=== PATIENT | female | born 1935 | race Caucasian/White ===

== ENCOUNTER 2019-04-26 15:07 | Outpatient (CLI) | payer MEDICARE, OTHER, SELFPAY ==
--- NOTE | ~2019-04-26 | XR_ITS ---
XR lumbar spine 2-3V 04/26/2019 15:40 Indication: Back pain. Procedure: 3 views lumbar spine Comparison: CT abdomen dated 03/19/2016 Findings: There is a T12 burst fracture which is new compared with prior CT. There is an also a T9 fuller perior endplate compression fracture, age indeterminate. There is disc narrowing at all lumbar levels . There is advanced multilevel facet hypertrophy. There are cholecystectomy clips. Sacral foramen are symmetric. Impression: 1: Age-indeterminate superior endplate compression fracture of T9 and burst fracture of T12. The burs t fracture was not seen on CT abdomen dated 03/19/2016. 2: Severe lumbar spondylosis. Reviewed, dictated and finalized at location A. ARY SERIALS ASSISTANT Impression: 1: Age-indeterminate superior endplate compression fracture of T9 and burst fra cture of T12. The burst fracture was not seen on CT abdomen dated 03/19/2016. 2: Severe lumbar spondylosis.
--- NOTE | ~2019-04-26 | XR_ITS ---
EXAMINATION: XR thoracic spine 3V EXAM DATE: 04/26/2019 15:40 INDICATION: Dorsalgia. TECHNIQUE: Frontal and lateral projections of the thoracic spine as well as lateral swimmers projecti on of the upper thoracic spine for interpretation. There is no prior thoracic x-ray study for compar juventino. FINDINGS: There is moderate to severe compression fracture of T8 vertebral body, moderate burst frac ture of T12 vertebral body. Mild to moderate compression fractures of T9 and T11. There is mild thora cic disc disease. Paraspinal soft tissue is unremarkable. There is aortic arterial sclerosis. There a re cholecystectomy clips. Multiple old right rib fractures posteriorly. Correlation was made with CT pulmonary scan 06/09/2014, which demonstrates moderate compression fractur e of T9, might be unchanged compared to that exam. The other thoracic compression fractures have deve loped compared to that time, certainly could have an acute component to one of them. IMPRESSION: T12 burst fracture and other thoracic compression fractures, probably chronic but could h ave acute component to any them. Reviewed, dictated and finalized at location A. MOTIVE TIRE TECHNICIAN IMPRESSION: T12 burst fracture and other thoracic compression fractures, probab ly chronic but could have acute component to any them.
== END 2019-04-26 15:08 | disposition home or self-care (01) ==
LOC: ANHIMG 15:10
PROVIDERS: PCP Internal Medicine; Visit Provider Internal Medicine
DX: M47.896 Other spondylosis, lumbar region (principal); S22.081A Stable burst fracture of T11-T12 vertebra, initial encounter for closed fracture; X58.XXXA Exposure to other specified factors, initial encounter
CPT/HCPCS: 72072; 72100

== ENCOUNTER 2019-05-19 12:17 | Outpatient (CLI) | payer MEDICARE, OTHER, SELFPAY ==
--- NOTE | ~2019-05-19 | MR_ITS ---
EXAMINATION: MR lumbar spine wo con EXAM DATE: 05/19/2019 14:19 INDICATION: Low back pain. Compression, burst fractures. TECHNIQUE: Multi-sequential, multiplanar MR images of the lumbar spine were obtained without contrast . Sagittal T1, T2, T2 fat saturation images. Axial T2 weighted images. Correlation is made to lumba r x-ray 04/26/2019. FINDINGS: T12 burst fracture with severe loss of the vertebral body height, mild edema, probably suba cute. Only mild retropulsion. There is mild compression fracture superior endplate of L3 with more ed lexis, probably acute to subacute. Mild to moderate chronic L2 compression fracture. The conus medullar is terminates at the L1/2 level and has normal signal intensity and morphology. There is 3 mm retroli sthesis L4 on L5 and L5 on S1. Paraspinal soft tissue is unremarkable. Level by level evaluation: T11-12: There is a mild diffuse disc bulge. Facet arthropathy: Mild to moderate. Neural foraminal stenosis: Mild right. Central canal stenosis: No stenosis. T12-L1: There is a moderate diffuse disc bulge. Facet arthropathy: Moderate. Neural foraminal stenosis: Moderate to severe bilateral. Central canal stenosis: Mild to moderate. L1-L2: There is a moderate diffuse disc bulge. Facet arthropathy: Moderate. Neural foraminal stenosis: No stenosis. Central canal stenosis: Mild. L2-L3: There is a moderate diffuse disc bulge. Facet arthropathy: Moderate . Ligamentum flavum enlargement. Neural foraminal stenosis: Mild to moderate bilateral. Central canal stenosis: Moderate, nerve root crowding. L3-L4: There is a moderate to large diffuse disc bulge asymmetric to the left Facet arthropathy: Moderate to severe . Ligamentum flavum enlargement. Neural foraminal stenosis: Moderate left, mild to moderate right. Central canal stenosis: Moderate to severe. L4-L5: There is a moderate to large diffuse disc bulge. Facet arthropathy: Moderate to severe. Neural foraminal stenosis: Moderate to severe right, moderate left. Central canal stenosis: Moderate to severe. L5-S1: There is a moderate diffuse disc bulge. Facet arthropathy: Moderate to severe. Neural foraminal stenosis: Moderate right, mild to moderate left. Central canal stenosis: Moderate. IMPRESSION: 1. T12 burst, L3 compression fractures with edema indicating acute to subacute components. 2. Some advanced lumbar spondylosis, with severe central canal stenosis L4-5. Reviewed, dictated and finalized at location A.
--- NOTE | ~2019-05-19 | MR_ITS ---
EXAMINATION: MR thoracic spine wo con DATE: 05/19/2019 14:20 INDICATION: Fracture of thoracic vertebrae with chronic low back pain. TECHNIQUE: Magnetic resonance imaging (MRI) of the thoracic spine was performed without intravenous c ontrast. Sagittal localizer T1-weighted FSE of the cervicothoracic spine was obtained. Thoracic spine sequences included sagittal T2-weighted FSE, sagittal T1-weighted SE, Sagittal T2-weighted FS FSE, a nd axial T2-weighted FSE. COMPARISON: Thoracic spine radiographs dated 04/26/[address] dated 06/09/2014 FINDINGS: Chronic 2 mm anterolisthesis C7 on T1 and T2 and T3 unchanged since 2014. A few burst fractures in th e mid to lower thoracic spine all of which appear present on radiograph dated 04/26/2019 and without a ppreciable change in vertebral body height loss. This includes T8 where there is 80% central vertebra l body height loss and 4 mm retropulsion which appears chronic with no significant edema. T9 burst fr acture with 40% central vertebral body height loss, 2 mm retropulsion and mild marrow edema suggestin g subacute chronicity. T12 burst fracture with 80% central vertebral body height loss and 2-3 mm retr opulsion, also with marrow edema suggesting subacute. Partially visualized mild L3 compression fractu re also with marrow edema suggesting subacute fracture. Chronic L2 inferior endplate compression frac ture with 20% central vertebral body height loss. Marrow signal is otherwise unremarkable with no pat hologic marrow replacing process. Moderate disc height loss at C5-C6, C6-C7, T2-T3, T7-T8 and T8-T9. Mild disc height loss at many of the remaining thoracic levels. Normal spinal cord signal and morphol ogy. 2.1 cm T2 hyperintense left renal cyst. Paraspinal soft tissues are otherwise unremarkable. C7-T1: Disc is mildly bulging. There is severe bilateral facet osteoarthritis. Mild bilateral neural foraminal stenosis. Mild central canal stenosis. T1-T2: Disc is mildly bulging. Severe bilateral facet osteoarthritis. Mild left neural foraminal sten osis. There is mild central canal stenosis. T2-T3: Small left paracentral disc extrusion with disc material extending a few millimeters cephalad to the inferior endplate of T2. Severe bilateral facet osteoarthritis. Mild bilateral neural foramina l stenosis. There is mild central canal stenosis. T3-T4: Mild left paracentral disc protrusion. Moderate bilateral facet osteoarthritis. No neural fora robyn stenosis. There is minimal central canal stenosis. T4-T5: The disc does not extend beyond the endplate margin. Moderate lateral right facet osteoarthrit is. Mild right neural foraminal stenosis. There is no central canal stenosis. T5-T6: The disc does not extend beyond the endplate margin. Moderate bilateral facet osteoarthritis a nd mild bilateral neural foraminal stenosis. There is no central canal stenosis. T6-T7: The disc does not extend beyond the endplate margin. Mild bilateral facet osteoarthritis. Mild bilateral neural foraminal stenosis. There is no central canal stenosis. T7-T8: The disc does not extend beyond the endplate margin. Mild bilateral facet osteoarthritis. Mild bilateral neural foraminal stenosis. There is no central canal stenosis. T8-T9: 4 mm retropulsion of the inferior endplate of T8 which flattens the ventral surface of the cor d. Mild bilateral facet osteoarthritis. Moderate bilateral neural foraminal stenosis. There is mild t o moderate central canal stenosis. T9-T10: 2 mm retropulsion of the inferior endplate of T9. Mild bilateral facet osteoarthritis. Modera te right and severe left neural foraminal stenosis. There is mild central canal stenosis. T10-T11: Disc is mildly bulging. Moderate bilateral facet osteoarthritis. There is moderate left and mild to moderate right neural foraminal stenosis. There is mild central canal stenosis. T11-T12: Mild disc bulge. M
== END 2019-05-19 12:18 | disposition home or self-care (01) ==
PROVIDERS: PCP Internal Medicine; Visit Provider Internal Medicine
DX: S22.009A Unspecified fracture of unspecified thoracic vertebra, initial encounter for closed fracture (principal); X58.XXXA Exposure to other specified factors, initial encounter; M47.892 Other spondylosis, cervical region; M47.894 Other spondylosis, thoracic region; M47.896 Other spondylosis, lumbar region
CPT/HCPCS: 72146; 72148

== ENCOUNTER 2019-06-20 10:57 | Outpatient (CLI) | payer MEDICARE, OTHER, SELFPAY ==
--- NOTE | ~2019-06-20 | XR_ITS ---
EXAMINATION: XR lumbar spine 2-3V DATE: 06/20/2019 11:42 INDICATION: Closed wedge compression fracture of L3 TECHNIQUE: Anteroposterior and lateral views of the lumbar spine, and cone-down lateral view of the l umbosacral junction were obtained. COMPARISON: MRI, 05/19/2019 FINDINGS: A T12 burst fracture is unchanged. There are stable compression fractures of T9 and L3. No acute osseous findings are evident. Vertebral body alignment is normal. There is moderate loss of int ervertebral disc space height at L3-4 and L5-S1 and mild loss of intervertebral disc space height thr oughout the remainder of the lumbar spine. There is moderate to severe facet osteoarthritis in the mi d and lower lumbar spine. The bowel gas pattern is normal. Surgical clips in the right upper quadrant are likely from prior cholecystectomy. IMPRESSION: 1. T12 burst fracture and compression fractures of T9 and L3 without significant change. Reviewed, dictated and finalized at location A. IMPRESSION: 1. T12 burst fracture and compression fractures of T9 and L3 without significan t change.
== END 2019-06-20 10:58 | disposition home or self-care (01) ==
PROVIDERS: PCP Internal Medicine; Visit Provider Neurological Surgery
DX: S32.030D Wedge compression fracture of third lumbar vertebra, subsequent encounter for fracture with routine healing (principal); S22.080D Wedge compression fracture of T11-T12 vertebra, subsequent encounter for fracture with routine healing; X58.XXXD Exposure to other specified factors, subsequent encounter
CPT/HCPCS: 72100

== ENCOUNTER 2019-08-14 13:01 | Outpatient (CLI) | payer MEDICARE, OTHER, SELFPAY ==
[2019-08-14 13:34] LABS: Alanine Aminotransferase 16 U/L (4-35); Albumin Level 4.4 g/dL (3.5-5.1); Alkaline Phosphatase 103 U/L (38-126); Aspartate Amino Transferase 25 U/L (14-36); Bilirubin,Total 0.6 mg/dL (0.2-1.3); Blood Urea Nitrogen 19 mg/dL (7-17); Calcium 9.8 mg/dL (8.4-10.2); Carbon Dioxide 30 mmol/L (22-30); Chloride 101 mmol/L (98-107); Estimated Glomerular Filt Rate 53; Glucose 100 mg/dL (65-105); Potassium 4.1 mmol/L (3.4-5.0); Sodium 137 mmol/L (137-145)
[2019-08-14 14:01] LABS: Free T4 Free Thyroxine 1.03 ng/mL (0.78-2.19)
== END 2019-08-14 13:02 | disposition home or self-care (01) ==
PROVIDERS: PCP Internal Medicine; Visit Provider Nurse Practitioner
DX: E03.9 Hypothyroidism, unspecified (principal); I10 Essential (primary) hypertension
CPT/HCPCS: 36415; 80053; 84439; 84443

== ENCOUNTER 2019-11-07 09:33 | Outpatient (CLI) | payer MEDICARE, OTHER, SELFPAY ==
[2019-11-07 10:48] LABS: Basophils Absolute Auto 0.1 K/mm3 (0.0-0.1); Basophils Percent Auto 0.7 % (0.2-1.2); Eosinophils Absolute Auto 0.2 K/mm3 (0-0.3); Eosinophils Percent Auto 1.7 % (0-4.4); Hematocrit 36.7 % (37.0-47.0); Hemoglobin 12.4 g/dL (12.0-15.0); Immature Granulocyte Absolute 0.03 K/mm3 (0.00-0.031); Immature Granulocyte Percent A 0.3 % (0-0.5); Lymphocytes Absolute Auto 1.11 K/mm3 (0.9-3.2); Lymphocytes Percent Auto 11.9 % (18.3-44.2); Mean Corpuscular HGB Conc 33.8 g/dl (32-36); Mean Corpuscular Hemoglobin 33.4 pg (26-34); Mean Corpuscular Volume 98.9 fl (80-100); Mean Platelet Volume 9.7 fl (7.4-10.4); Monocytes Absolute Auto 0.6 K/mm3 (0.1-0.6); Monocytes Percent Auto 6.8 % (2.6-8.5); Neutrophils Absolute Auto 7.3 K/mm3 (1.3-6.7); Neutrophils Percent Auto 78.6 % (45.5-73.1); Platelet Count Result 304 k/mm3 (150-375); Red Blood Count 3.71 M/mm3 (4.2-5.4); Red Cell Distribution Width 13.1 % (11.5-14.5); White Blood Count 9.4 K/mm3 (4.5-10.0)
[2019-11-07 10:59] LABS: Add Urine Microscopic? YES; Appearance Urine Clear (Clear); Bacteria Urine Trace /hpf; Bilirubin Urine Negative (Negative); Blood Urine Negative (Negative); Color Urine Yellow (Yellow); Glucose Urine UA Negative (Negative); Ketones Urine Negative (Negative); Leukocyte Esterase Ur 1+ LEU/UL (Negative); Mucus Urine Rare /lpf; Nitrate Urine Positive (Negative); Protein Urine Negative (Negative); Specific Grav Ur 1.012 (1.001-1.035); Squamous Epithelial Cell Urine Rare /hpf (Few); Urobilinogen Urine Negative mg/dL (<2.0); WBC Urine 21-30 /hpf
== END 2019-11-07 09:34 | disposition home or self-care (01) ==
PROVIDERS: PCP Internal Medicine; Visit Provider Internal Medicine
DX: R35.1 Nocturia (principal); R53.83 Other fatigue
CPT/HCPCS: 36415; 81001; 85025; 87077; 87086; 87088; 87186

== ENCOUNTER 2020-05-20 10:24 | Outpatient (CLI) | payer MEDICARE, OTHER, SELFPAY ==
[2020-05-20 11:29] LABS: Alanine Aminotransferase 18 U/L (4-35); Albumin Level 4.3 g/dL (3.5-5.1); Alkaline Phosphatase 73 U/L (38-126); Anion Gap 7 mmol/L (8-16); Aspartate Amino Transferase 26 U/L (14-36); Bilirubin,Total 0.5 mg/dL (0.2-1.3); Blood Urea Nitrogen 13 mg/dL (7-17); Calcium 9.9 mg/dL (8.4-10.2); Carbon Dioxide 28 mmol/L (22-30); Chloride 100 mmol/L (98-107); Cholesterol 162 mg/dL (0-200); Estimated Glomerular Filt Rate 60; Glucose 103 mg/dL (65-105); HDL Direct 78 mg/dL; Potassium 4.1 mmol/L (3.4-5.0); Sodium 135 mmol/L (137-145); Triglycerides 102 mg/dL (<150)
[2020-05-20 11:42] LABS: LDL Cholesterol Direct 53 mg/dL
[2020-05-20 12:10] LABS: Vitamin D 25 Hydroxy 66.5 ng/mL
== END 2020-05-20 10:25 | disposition home or self-care (01) ==
PROVIDERS: PCP Internal Medicine; Visit Provider Nurse Practitioner
DX: E03.9 Hypothyroidism, unspecified (principal); Z78.0 Asymptomatic menopausal state; F32.9 Major depressive disorder, single episode, unspecified
CPT/HCPCS: 36415; 80053; 80061; 82306; 84443

== ENCOUNTER 2020-05-28 11:14 | Outpatient (CLI) | payer MEDICARE, OTHER, SELFPAY ==
--- NOTE | ~2020-05-28 | XR_ITS ---
XR thoracic spine 3V DATE: 05/28/2020 11:41 INDICATION: Back pain TECHNIQUE: AP, lateral, swimmer views COMPARISON: 05/19/2019 MRI brain thoracic spine 04/26/2019 thoracic spine FINDINGS: Diffuse osteopenia. Severe chronic burst fracture deformity at T8, stable since April 26, 2019. Increased severity of T9 burst fracture deformity since April 26, 2019. Increased fracture deformity at T11 since April 26, 2019. Chronic severe burst fracture deformity at T12, stable since April 26, 2019 Apparently stable fracture deformity of L2. Degenerative changes of the cervical and thoracic spine. The thoracic pedicles appear intact. Status post cholecystectomy IMPRESSION: Fracture deformities of T8, T9, T11, T12 and L2 are again noted, increased in severity at T9 and T11 since April 26, 2019 Reviewed, dictated and finalized at location B. IMPRESSION: Fracture deformities of T8, T9, T11, T12 and L2 are again noted, in creased in severity at T9 and T11 since April 26, 2019
--- NOTE | ~2020-05-28 | XR_ITS ---
XR lumbar spine 2-3V DATE: 05/28/2020 11:41 INDICATION: Back pain TECHNIQUE: AP, lateral, coned lateral lumbosacral views COMPARISON: 06/20/2019 lumbar spine FINDINGS: There is diffuse osteopenia. Severe T12 fracture deformity and loss of height, stable since 06/20/2019. No interval fracture of the lumbar spine is noted compared to 06/20/2019. There is degenerative disc d isease throughout the lumbar and lumbosacral spine. The lumbar pedicles are intact. The sacroiliac joints are normal. Status post cholecystectomy IMPRESSION: Diffuse osteopenia Multilevel degenerative disc disease Reviewed, dictated and finalized at location B.
== END 2020-05-28 11:15 | disposition home or self-care (01) ==
PROVIDERS: PCP Internal Medicine; Visit Provider Internal Medicine
DX: M51.36 Other intervertebral disc degeneration, lumbar region (principal); Z90.49 Acquired absence of other specified parts of digestive tract
CPT/HCPCS: 72072; 72100

== ENCOUNTER 2020-12-09 10:55 | Outpatient (CLI) | payer MEDICARE, OTHER, SELFPAY | END 2020-12-09 10:56 | disposition home or self-care (01) | LOC: ANHLAB 10:57 | PROVIDERS: PCP Internal Medicine; Visit Provider Internal Medicine | DX: E03.9 Hypothyroidism, unspecified (principal) | CPT/HCPCS: 36415; 84443 ==

== ENCOUNTER 2021-06-16 10:39 | Outpatient (CLI) | payer MEDICARE, OTHER, SELFPAY ==
[2021-06-16 11:21] LABS: Alanine Aminotransferase 18 U/L (4-35); Albumin Level 4.3 g/dL (3.5-5.1); Alkaline Phosphatase 70 U/L (38-126); Anion Gap 7 mmol/L (8-16); Aspartate Amino Transferase 29 U/L (14-36); Bilirubin,Total 0.6 mg/dL (0.2-1.3); Blood Urea Nitrogen 21 mg/dL (7-17); Calcium 9.3 mg/dL (8.4-10.2); Carbon Dioxide 28 mmol/L (22-30); Chloride 102 mmol/L (98-107); Cholesterol 159 mg/dL (0-200); Estimated Glomerular Filt Rate 53; Glucose 110 mg/dL (65-110); HDL Direct 58 mg/dL; Potassium 4.7 mmol/L (3.4-5.0); Sodium 137 mmol/L (137-145); Triglycerides 116 mg/dL (<150)
[2021-06-16 11:31] LABS: LDL Cholesterol Direct 49 mg/dL
[2021-06-16 13:03] LABS: Vitamin D 25 Hydroxy 87.7 ng/mL
== END 2021-06-16 10:40 | disposition home or self-care (01) ==
PROVIDERS: PCP Internal Medicine; Visit Provider Nurse Practitioner
DX: E03.9 Hypothyroidism, unspecified (principal); I10 Essential (primary) hypertension; Z13.220 Encounter for screening for lipoid disorders; Z13.21 Encounter for screening for nutritional disorder
CPT/HCPCS: 36415; 80053; 80061; 82306; 84443

== ENCOUNTER 2021-06-30 11:25 | Outpatient (CLI) | payer MEDICARE, OTHER, SELFPAY ==
[2021-06-30 12:15] LABS: Basophils Absolute Auto 0.1 K/mm3 (0.0-0.1); Basophils Percent Auto 0.9 % (0.2-1.2); Eosinophils Absolute Auto 0.2 K/mm3 (0-0.3); Eosinophils Percent Auto 2.3 % (0-4.4); Hemoglobin 12.5 g/dL (12.0-15.0); Immature Granulocyte Absolute 0.03 K/mm3 (0.00-0.031); Immature Granulocyte Percent A 0.3 % (0-0.5); Lymphocytes Absolute Auto 1.44 K/mm3 (0.9-3.2); Lymphocytes Percent Auto 15.7 % (18.3-44.2); Mean Corpuscular HGB Conc 32.9 g/dl (32-36); Mean Corpuscular Hemoglobin 33.2 pg (26-34); Mean Corpuscular Volume 101.1 fl (80-100); Mean Platelet Volume 10.1 fl (7.4-10.4); Monocytes Absolute Auto 0.9 K/mm3 (0.1-0.6); Monocytes Percent Auto 9.4 % (2.6-8.5); Neutrophils Absolute Auto 6.5 K/mm3 (1.3-6.7); Neutrophils Percent Auto 71.4 % (45.5-73.1); Platelet Count Result 285 k/mm3 (150-375); Red Blood Count 3.76 M/mm3 (4.2-5.4); Red Cell Distribution Width 13.4 % (11.5-14.5); White Blood Count 9.2 K/mm3 (4.5-10.0)
== END 2021-06-30 11:26 | disposition home or self-care (01) ==
LOC: ANHLAB 11:28
PROVIDERS: PCP Internal Medicine; Visit Provider Internal Medicine
DX: R53.83 Other fatigue (principal)
CPT/HCPCS: 36415; 85025

== ENCOUNTER 2021-07-19 06:48 | Emergency (ER) | payer MEDICARE, OTHER, SELFPAY ==
--- NOTE | ~2021-07-19 | XR_ITS ---
XR chest 2V DATE: 07/19/2021 07:41 INDICATION: Cough for 3 weeks TECHNIQUE: PA and lateral views COMPARISON: 03/04/2015 2 view chest FINDINGS: Heart size is within normal limits. Is aortic calcification and unfolding. No hilar or medi astinal enlargement. No pulmonary infiltrate or consolidation, pleural effusion or pulmonary vascular congestion or pneumo thorax. Diffuse osteopenia. There are old healed right rib fractures. There is osteoarthritic change at the g lenohumeral joints and bilateral rotator cuff atrophy. There are multiple compression fracture deformities of the thoracic spine, increased in number since 03/04/2015. Status post cholecystectomy. 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
[2021-07-19 07:00] VITALS: BP 174/70; PULSE 85; RESP 18; TEMP 36.2; O2SAT 98
--- NOTE | 2021-07-19 07:37 | ED.GENADULT ---
HPI - General Adult General Chief complaint: Unspecified Stated complaint: Cough, I feel like I have the flu Time Seen by Provider: 07/19/21 07:18 History of Present Illness HPI narrative: Patient is an 86-year-old female who presents ER with fatigue and weakness. Patient reports over the last 3 weeks she has developed sinus congestion with sore throat and cough. With the cough she is having pain in her back. She took some ibuprofen today. She takes Claritin daily. No fevers or chills or sweats. She is experiencing some body aches and is wondering if she may have caught the flu. No known sick contacts. Related Data Allergies Allergy/AdvReac Type Severity Reaction Status Date / Time diazepam Allergy Unknown Shakiness Verified 07/19/21 07:30 neomycin Allergy Unknown Rash Verified 07/19/21 07:30 Review of Systems Review of Systems: All systems reviewed & are unremarkable except as noted in HPI and below Constitutional: Constitutional: Denies chills, Denies fever(s) and Denies weakness ENT: Reports nasal congestion, Reports post nasal drip and Reports sore throat Cardiovascular: Cardiovascular: Denies chest pain, Denies radiating jaw, neck or arm pain and Denies palpitations Respiratory: Respiratory: Denies chest congestion, Reports cough and Denies dyspnea Genitourinary: Genitourinary: Reports vaginal pruritus Comments: Vaginal yeast Musculoskeletal: Musculoskeletal: Reports back pain, Reports myalgias and Denies arthralgias PMFSH Past Medical History Medical History Anxiety Body mass index (bmi) 34.0-34.9, adult Constipation, unspecified Hypothyroidism, unspecified Major depressive disorder, recurrent, unspecified Overweight Screening for breast cancer Screening for osteoporosis Family History Family History Father Acute myocardial infarction Social History Social History Smoking status: Never smoker Second hand tobacco smoke exposure: No Alcohol intake: never Substance use: never Substance use type: does not use Exam Narrative: GENERAL: Well-appearing, well-nourished, and in no acute distress. HEAD: Normocephalic, atraumatic. ENT: Mucous membranes moist. NECK: Supple. CHEST: Clear to auscultation. No respiratory distress. HEART: Regular rate and rhythm. Normal peripheral pulses. ABDOMEN: Soft, nontender, nondistended. EXTREMITIES: Normal range of motion. No edema. SKIN: Warm, dry, no rash. NEURO: Alert and oriented x3. PSYCH: Normal mood and affect. Course Course Emergency Course: Patient informed of results. Resting comfortably. Discharged with Flonase as well as one-time dose of Diflucan here. Vital Signs Vital signs: Vital Signs Temperature 97.2 F L 07/19/21 07:00 Pulse Rate 85 07/19/21 07:00 Respiratory Rate 18 07/19/21 07:00 Blood Pressure 174/70 H 07/19/21 07:00 Pulse Oximetry 98 07/19/21 07:00 Temperature 97.2 F L 07/19/21 07:00 Pulse Rate 85 07/19/21 07:00 Respiratory Rate 18 07/19/21 07:00 Blood Pressure 174/70 H 07/19/21 07:00 Pulse Oximetry 98 07/19/21 07:00 Medical Decision Making Vital Signs Vital Signs: Vital Signs Temperature 97.2 F L 07/19/21 07:00 Pulse Rate 85 07/19/21 07:00 Respiratory Rate 18 07/19/21 07:00 Blood Pressure 174/70 H 07/19/21 07:00 Pulse Oximetry 98 07/19/21 07:00 Temperature 97.2 F L 07/19/21 07:00 Pulse Rate 85 07/19/21 07:00 Respiratory Rate 18 07/19/21 07:00 Blood Pressure 174/70 H 07/19/21 07:00 Pulse Oximetry 98 07/19/21 07:00 Lab Data Labs: Lab Results 07/19/21 Range/Units 07:32 Influenza A (RT-PCR) Negative (Negative) Influenza B (RT-PCR) Negative (Negative) SARS-CoV-2 RNA (RT-PCR) Negative Discharge Plan Discharge Clinical Impression: Sinus congestion Kassidye
[2021-07-19 08:13] LABS: Influenza A QL RT-PCR Negative (Negative); Influenza B QL RT-PCR Negative (Negative); SARS-CoV-2 RNA PCR Negative
== END 2021-07-19 09:28 | disposition home or self-care (01) ==
PROVIDERS: Emergency Provider Emergency Medicine; PCP Internal Medicine
DX: J34.89 Other specified disorders of nose and nasal sinuses (principal); Z20.822 Contact with and (suspected) exposure to COVID-19; E03.9 Hypothyroidism, unspecified; E66.3 Overweight; Z68.34 Body mass index [BMI] 34.0-34.9, adult; F41.9 Anxiety disorder, unspecified; F32.9 Major depressive disorder, single episode, unspecified
CPT/HCPCS: 71046; 87502; 99283; C9803; U0003; U0005

== ENCOUNTER 2021-07-21 11:51 | Inpatient (IN) | payer MEDICARE, OTHER, SELFPAY ==
[2021-07-21] VITALS (22 sets, daily range): BP systolic 110–158; BP diastolic 52–97; PULSE 80–104; RESP 14–29; TEMP 36.2–37.1; O2SAT 90–100; BMI 33.5
--- NOTE | ~2021-07-21 | CT_ITS ---
EXAMINATION: CT lumbar spine wo con DATE: 07/21/2021 13:08 INDICATION: Fall. TECHNIQUE: Computed tomography (CT) of the lumbar spine was performed without intravenous contrast. A utomated exposure control and iterative reconstruction technique were employed. The dose-length produ ct was 927.30 mGy-cm. COMPARISON: Lumbar spine radiographs 05/28/2020 FINDINGS: There is 3 mm retrolisthesis of L5 on S1. There is a chronic burst fracture of T12 with gre ater than 4/5 loss of height and retropulsion of bone 3 mm into central spinal canal. There are chron ic burst fractures of L2 and L3 with 2/5 and 1/5 loss of height centrally, respectively, and retropul brando of bone 3 mm into central spinal canal. There is mildly decreased disc height at L1-L2 and L2-L3 , moderately decreased disc height at L3-L4, severely decreased disc height at L5-S1. The following d isc levels are specifically discussed: L1-L2: The disc is bulging. There is severe bilateral facet joint osteoarthritis. There is mild bilat eral neural foraminal stenosis. There is mild central canal stenosis. L2-L3: The disc is bulging. There is severe bilateral facet joint osteoarthritis. There is mild bilat eral neural foraminal stenosis. There is mild central canal stenosis. L3-L4: The disc is bulging. There is severe right and moderate left facet joint osteoarthritis. There is moderate bilateral neural foraminal stenosis. There is mild central canal stenosis. L4-L5: The disc is bulging. There is severe bilateral facet joint osteoarthritis. There is moderate b ilateral neural foraminal stenosis. There is moderate central canal stenosis. L5-S1: The disc is bulging. There is severe bilateral facet joint osteoarthritis. There is moderate b ilateral neural foraminal stenosis. There is mild central canal stenosis. IMPRESSION: 1. No acute fracture. 2. Severe lumbar spondylosis. Reviewed, dictated and finalized at location B.
--- NOTE | ~2021-07-21 | XR_ITS ---
EXAMINATION: XR chest 2V DATE: 07/21/2021 13:11 INDICATION: Weakness. TECHNIQUE: Frontal and lateral views of the chest were obtained. COMPARISON: Chest 2 views 07/19/2021, thoracic spine radiographs 05/28/2020 FINDINGS: There is a diffuse interstitial pattern, consistent with mild pulmonary edema. No pleural e ffusion or pneumothorax. The heart size is normal. There are multiple old healed right rib fractures. There are multiple chronic vertebral body fractures. IMPRESSION: 1. Mild pulmonary edema. Reviewed, dictated and finalized at location B. IMPRESSION: 1. Mild pulmonary edema.
--- NOTE | ~2021-07-21 | XR_ITS ---
EXAMINATION: XR chest 2V DATE: 07/24/2021 10:46 INDICATION: Tiny left pneumothorax TECHNIQUE: frontal and lateral views of the chest were obtained. COMPARISON: Chest radiograph dated 07/23/2021 FINDINGS: A few old healed right-sided rib fractures and a few acute-appearing anterior left rib fractures. Sli ght increase in size of a still small left pleural effusion with associated left basilar atelectasis. Tiny right pleural effusion. No pulmonary edema or pneumothorax. Multiple chronic thoracic compressi on fractures unchanged since radiographs obtained prior to the fall on 07/19/2021. Cholecystectomy cli ps in right upper quadrant. IMPRESSION: 1. Several recent right rib fractures with slight interval increase in a still small left pleural eff usion with associated basilar atelectasis. No pneumothorax. 2. Very small right pleural effusion. Reviewed, dictated and finalized at location A. IMPRESSION: 1. Several recent right rib fractures with slight interval increase in a still small left pleural effusion with associated basilar atelectasis. No pneumothora x. 2. Very small right pleural effusion.
--- NOTE | ~2021-07-21 | XR_ITS ---
XR chest 2V 07/23/2021 07:51 Indication: Pneumothorax seen on rib films. Procedure: 2 view chest Comparison: Left rib series dated 07/22/2021 Findings: Rib fractures seen on prior rib series not appreciated on the current examination. No defin itive pneumothorax identified. There is a left pleural effusion/hemothorax. There is advanced degener ative changes of the shoulders. There is right lateral costophrenic angle blunting. Impression: 1: Bilateral pleural effusions/hemothorax, left greater than right. 2: No pneumothorax identified. Reviewed, dictated and finalized at location B. Impression: 1: Bilateral pleural effusions/hemothorax, left greater than right. 2: No pneumothorax identified.
--- NOTE | ~2021-07-21 | XR_ITS ---
EXAM: XR ribs LT 2V HISTORY: fall, ecchynmsis and pain left lateral lower ribs . COMPARISON: None available. FINDINGS: Severely decreased mineralization which limits radiographic sensitivity. Displaced second left lateral rib fracture. Mildly displaced and nondisplaced fractures of the left third through desi nth anterolateral ribs. Right lateral costophrenic angle blunting. Small apical left pneumothorax. Pr obably stable multilevel vertebral compression deformities. IMPRESSION: Displaced and nondisplaced fractures of the left second lateral and left third through se venth anterolateral ribs. Small left hemopneumothorax. Results reported telephonically to the patient's nurse Flor Godfrey, by Dr. Arana at 4:13 PM on 07/22. Reviewed, dictated and finalized at location K. IMPRESSION: Displaced and nondisplaced fractures of the left second lateral and left third through seventh anterolateral ribs. Small left hemopneumothorax. Results reported telephonically to the patient's nurse Flor Godfrey, by Dr. Tej rolando at 4:13 PM on 07/22/2021.
--- NOTE | 2021-07-21 12:19 | ED.WEAKNESS ---
HPI - Weakness General Chief complaint: Back Pain/Injury Stated complaint: weak, dizzy Time Seen by Provider: 07/21/21 12:14 Source: patient Mode of arrival: EMS Limitations: no limitations History of Present Illness HPI Narrative: Patient is 86 years old white female had history of chronic lower back pain, for months. Had a fall today because of the pain in her bathroom, denies any injuries. Currently patient complaining of lower back pain which is not different than before and would like a pain shot immediately. Related Data Allergies Allergy/AdvReac Type Severity Reaction Status Date / Time diazepam Allergy Unknown Shakiness Verified 07/19/21 07:30 neomycin Allergy Unknown Rash Verified 07/19/21 07:30 Review of Systems Review of Systems: All systems reviewed & are unremarkable except as noted in HPI and below PMFSH Past Medical History Medical History Anxiety Body mass index (bmi) 34.0-34.9, adult Constipation, unspecified Hypothyroidism, unspecified Major depressive disorder, recurrent, unspecified Overweight Screening for breast cancer Screening for osteoporosis Family History Family History Father Acute myocardial infarction Social History Social History Smoking status: Never smoker Second hand tobacco smoke exposure: No Alcohol intake: never Substance use: never Substance use type: does not use Exam Narrative: General appearance: Well-developed, well-nourished, obese, laying down on the left side because of the pain, looks in pain. Skin: Normal color Head: Normocephalic, nontraumatic Eyes: Clear conjunctiva ENT: Oropharynx normal, ears normal, nose normal Neck: Supple, nontender Chest and respiratory: Airway patent, no respiratory distress, no accessory muscle use Heart: Regular rate/rhythm Abdomen: Soft, nontender, no organomegaly, quiet bowel sounds Vascular: Normal peripheral pulses, normal capillary refill. Musculoskeletal: Diffuse tenderness across lumbar area, no bruises, no swelling, no rash, severe limited range of motion. 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 Ashwini Pepe Date: 05/17/22 Time: 14:12 Vital Signs Vital signs: Vital Signs Temperature 36.2 C L 07/21/21 10:10 Pulse Rate 85 07/21/21 10:10 Respiratory Rate 20 07/21/21 10:10 Blood Pressure 110/54 L 07/21/21 10:10 Pulse Oximetry 95 07/21/21 10:10 Temperature 36.2 C L 07/21/21 10:10 Pulse Rate 87 07/21/21 13:18 Respiratory Rate 25 H 07/21/21 13:18 Blood Pressure 158/59 H 07/21/21 13:21 Pulse Oximetry 95 07/21/21 13:18 MDM - Weakness Lab Data Result diagrams: 07/21/21 12:27 07/21/21 12:27 Labs: Lab Results 07/21/21 07/21/21 07/21/21 Range/Units 12:27 12:27 12:27 WBC 16.1 H (4.5-10.0) K/mm3 RBC 4.00 L (4.2-5.4) M/mm3 Hgb 13.3 (12.0-15.0) g/dL Hct 38.9 (37.0-47.0) % MCV 97.3 (80-100) fl MCH 33.3 (26-34) pg MCHC 34.2 (32-36) g/dl RDW 13.0 (11.5-14.5) % Plt Count 326 (150-375) k/mm3 MPV 9.3 (7.4-10.4) fl Immature Gran % (Auto) 0.5 (0-0.5) % Neut % (Auto) 80.4 H (45.5-73.1) % Lymph % (Auto) 7.3 L (18.3-44.2) % [place] % (Auto) 11.5 H (2.6-8.5) % Eos % (Auto) 0.1 (0-4.4) % Baso % (Auto) 0.2 (0.2-1.2) % Lymph # (Auto) 1.17 (0.9-3.2) K/mm3 [place] # (Auto) 1.9 H (0.1-0.6) K/mm3 Eos # (Auto) 0.0 (0-0.3) K/mm3 Baso # (
--- NOTE | 2021-07-21 12:20 | ECG_ITS ---
Measurements Intervals [place] Rate: 85 P: CA: 0 QRS: -5 QRSD: 116 T: 45 QT: 403 QTc: 481 Interpretive Statements SINUS RHYTHM FREQUENT ATRIAL PREMATURE COMPLEXES INTRAVENTRICULAR CONDUCTION DELAY LEFT VENTRICULAR HYPERTROPHY BASELINE ARTIFACT- I, II, III, AVR, AVL, AVF, V1-V6 ABNORMAL ECG Electronically Signed On 07-21-2021 13:56:59 CDT by Alexsander Arreola D.O.
[2021-07-21 12:33] LABS: Basophils Percent Auto 0.2 % (0.2-1.2); Eosinophils Percent Auto 0.1 % (0-4.4); Hematocrit 38.9 % (37.0-47.0); Hemoglobin 13.3 g/dL (12.0-15.0); Immature Granulocyte Absolute 0.08 K/mm3 (0.00-0.031); Immature Granulocyte Percent A 0.5 % (0-0.5); Lymphocytes Absolute Auto 1.17 K/mm3 (0.9-3.2); Lymphocytes Percent Auto 7.3 % (18.3-44.2); Mean Corpuscular HGB Conc 34.2 g/dl (32-36); Mean Corpuscular Hemoglobin 33.3 pg (26-34); Mean Corpuscular Volume 97.3 fl (80-100); Mean Platelet Volume 9.3 fl (7.4-10.4); Monocytes Absolute Auto 1.9 K/mm3 (0.1-0.6); Monocytes Percent Auto 11.5 % (2.6-8.5); Neutrophils Absolute Auto 12.9 K/mm3 (1.3-6.7); Neutrophils Percent Auto 80.4 % (45.5-73.1); Platelet Count Result 326 k/mm3 (150-375); White Blood Count 16.1 K/mm3 (4.5-10.0)
[2021-07-21 12:45] LABS: INR 1.1; Prothrombin Time 13.5 Seconds (11.1-14.7)
[2021-07-21 12:46] LABS: Alanine Aminotransferase 31 U/L (6-35); Albumin Level 4.5 g/dL (3.5-5.1); Alkaline Phosphatase 102 U/L (38-126); Anion Gap 8 mmol/L (8-16); Aspartate Amino Transferase 43 U/L (14-36); Bilirubin,Total 0.8 mg/dL (0.2-1.3); Blood Urea Nitrogen 19 mg/dL (7-17); Calcium 9.6 mg/dL (8.4-10.2); Carbon Dioxide 31 mmol/L (22-30); Chloride 89 mmol/L (98-107); Estimated CRCL calculation 38 ml/min; Estimated Glomerular Filt Rate 59; Glucose 143 mg/dL (65-110); Potassium 3.3 mmol/L (3.4-5.0); Sodium 128 mmol/L (137-145)
[2021-07-21] MEDS: ONDANSETRON INJ 4 MG/2 ML VIAL IV PUSH (12:47)
[2021-07-21] MEDS: SODIUM CHLORIDE 0.9% IV 1,000 ML 50 ML IV CONT (12:47)
[2021-07-21] MEDS: HYDROmorphone HCL INJ (*CRX) 1 MG/ML SYR 0.5 MG IV PUSH ×3 (12:47→19:27)
[2021-07-21 13:00] LABS: CRP 2.1 mg/dL (<1.0)
[2021-07-21 13:01] LABS: Troponin I 0.044 ng/mL (0.000-0.034)
[2021-07-21 13:21] LABS: Bacteria Urine Trace /hpf; Squamous Epithelial Cell Urine Rare /hpf (Few); WBC Urine >75 /hpf
[2021-07-21 13:28] LABS: Appearance Urine Turbid (Clear); Bilirubin Urine Negative (Negative); Blood Urine 1+ (Negative); Color Urine Yellow (Yellow); Glucose Urine UA Negative (Negative); Ketones Urine 1+ mg/dL (Negative); Leukocyte Esterase Ur 3+ LEU/UL (Negative); Nitrate Urine Negative (Negative); Protein Urine 1+ mg/dL (Negative); Urobilinogen Urine 0.2 mg/dL (<2.0)
[2021-07-21 13:35] LABS: Erythrocyte Sedimentation Rate 31 mm/hr (0-20)
[2021-07-21 13:41] LABS: Add Urine Microscopic? YES
--- NOTE | 2021-07-21 14:15 | ECG_ITS ---
Measurements Intervals [place] Rate: 87 P: 68 NH: 160 QRS: -1 QRSD: 113 T: 64 QT: 425 QTc: 514 Interpretive Statements SINUS RHYTHM ATRIAL PREMATURE COMPLEX BASELINE ARTIFACT- I, II, III, AVR, AVL, AVF, V1-V6 BORDERLINE ECG Electronically Signed On 07-21-2021 16:21:07 CDT by Alexsander Arreola D.O.
[2021-07-21] MEDS: POTASSIUM CHLORIDE 20 MEQ TABLET 40 MEQ PO (14:45)
[2021-07-21] MEDS: SODIUM CHLORIDE 0.9% IV 1,000 ML 75 ML IV CONT ×2 (15:09→19:26)
--- NOTE | 2021-07-21 15:49 | ADMGEN ---
This patient, Edith Davalos, was admitted to IMU Room 206-02. Patient/family oriented to hospital policies and general routines including ID bracelet, bed and alarms, visiting hours, pain management, procedures, bathroom and other care routines, personal items, smoking policy, room service/diet, and visiting hours. Information on how to activate the Rapid Response Team has been discussed. Patient/Family are encouraged to report perceived risks to care and to ask questions if they do not understand what they are told or what they should do.
[2021-07-21 17:56] LABS: Troponin I 0.136 ng/mL (0.000-0.034)
[2021-07-21] MEDS: ASPIRIN 81 MG CHEWABLE TABLET PO (18:24)
--- NOTE | 2021-07-21 18:38 | PM.IMHP ---
H&P: HPI History of Present Illness Date/Time: Patient was placed observation status for expected length of stay less than 23 hours for management, will plan to re-evaluate tomorrow for improvement. 07/21/21 18:38 Chief Complaint: Weakness Narrative: Ms. Davalos is an 86-year-old female who presented to the emergency room with complaints of fatigue and weakness that has worsened over the last few days. Patient states last evening she did fall in her bathroom, but did not hit her head. Patient states she does have chronic back pain and has been seen multiple times for that. Patient denies any chest pain, shortness a breath, lightheadedness, dizziness, syncopal, or near syncopal episodes. Patient states that she has just been feeling weak and fell. Patient denies any dysuria, hematuria, frequency, or urgency. Upon evaluation in emergency room patient was noted have a mildly elevated troponin. Patient was also noted to have an EKG that showed sinus rhythm with frequent PACs. Patient's laboratory showed hyponatremia and hypokalemia. Patient denies any nausea or vomiting. Patient denies any diarrhea. Patient was seen 2 days ago with the emergency room for complaints nasal congestion and sore throat from postnasal drip. patient states she has been taking all home medications without any difficulty. Patient has a known history of anxiety, hypothyroidism, constipation, depression, and hypertension. Patient states she has been taking all medications without any difficulty. Review of Systems Review of Systems: A 12 point review of systems was completed patient all pertinent positive and negative per HPI the remainder are unremarkable. [facility] Past Medical History Medical History (Updated 07/21/21 @ 18:46 by Taylor Contreras APRN) Anxiety Benign essential hypertension Body mass index (bmi) 34.0-34.9, adult Constipation, unspecified Hypothyroidism, unspecified Major depressive disorder, recurrent, unspecified Overweight Screening for breast cancer Screening for osteoporosis Family History Family History Father Acute myocardial infarction Social History Social History Smoking status: Never smoker Second hand tobacco smoke exposure: No Alcohol intake: never Substance use: never Substance use type: does not use Spiritual care concerns: No Meds Home Medications and Allergies Home Medications Medication Instructions Recorded Confirmed Type bupropion HCl 300 mg 24 hr tablet, See Rx Instructions .ROUTE 06/12/21 07/21/21 Rx extended release .COMPLEX #90 tablet clotrimazole-betamethasone 1 See Rx Instructions .ROUTE 06/12/21 07/21/21 Rx %-0.05 % topical cream .COMPLEX #45 gm diltiazem HCl 240 mg See Rx Instructions .ROUTE 06/12/21 07/21/21 Rx capsule,extended release 24 hr .COMPLEX #90 cap linaclotide 145 mcg capsule See Rx Instructions .ROUTE 06/12/21 07/21/21 Rx .COMPLEX #90 cap levothyroxine 100 mcg tablet See Rx Instructions .ROUTE 06/15/21 07/21/21 Rx .COMPLEX #90 tablet losartan 100 mg tablet See Rx Instructions .ROUTE 06/15/21 07/21/21 Rx .COMPLEX #90 tablet buspirone 5 mg tablet See Rx Instructions .ROUTE 07/03/21 07/21/21 Rx .COMPLEX #270 tablet hydrochlorothiazide 25 mg tablet 25 mg PO DAILY #90 tablet 07/03/21 07/21/21 Rx acetaminophen 500 mg PO QID PRN 07/21/21 07/21/21 History calcium polycarbophil [FiberCon] 1,250 mg PO DAILY PRN 07/21/21 07/21/21 History butreju-I3-cbvj-copper-lexi 2 tablet PO TID 07/21/21 07/21/21 History [Citracal-D3 Maximum Plus] cetirizine [Zyrtec] 10 mg PO DAILY 07/21/21 07/21/21 History cholecalciferol (vitamin D3) 25 mcg PO 2XW 07/21/21 07/21/21 History [Vitamin D3] cyanocobalamin (vitamin B-12) 1,000 mcg PO DAILY 07/21/21 07/21/21 History fluticasone propionate [Flonase 2 spray INTRANASAL BID 07/21/21 07/21/21 History Allergy Relief]
[2021-07-21] MEDS: FLUTICASONE PROPIONATE 0.05% NA SPR 16 GM BTL (*BKC) 2 SPRAY NASAL (20:40)
[2021-07-21] MEDS: busPIRone HCL 5 MG TABLET BY MOUTH (20:40)
[2021-07-21] MEDS: ENOXAPARIN 40 MG/0.4 ML SYRINGE SUB-Q (20:41)
--- NOTE | 2021-07-21 22:15 | PC.NURSE ---
patient does not have her hearing aides in. she took them out. patient got up out of bed and pulled out her iv that was in her right arm. 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 she understands when she can hear better, and patient is forgetful.
[2021-07-22] VITALS (15 sets, daily range): BP systolic 135–171; BP diastolic 51–75; PULSE 81–101; RESP 20–24; TEMP 36.6–36.8; O2SAT 92–97
--- NOTE | 2021-07-22 | ECHO_ITS ---
Patient Info Name: Edith Davalos Age: 86 years : 1935 Gender: Female Ht: 60 in Wt: 180 lbs BSA: 1.90 m2 HR: 95 bpm BP: 171 / 66 mmHg Heart Rhythm: Sinus Rhythm Technical Quality: Fair Exam Date: 07/22/2021 11:29 AM Exam Location: [facility] Card Pulmonary Patient Status: Inpatient Admit Date: 07/22/2021 Staff Ordering Physician: Danna Maradiaga MD Alignment Technician: Isamar Dunbar RDCS Attending Provider: Kaden Gallardo MD Referring Physician: Ashwini CHRISTOPHER; Exam Type: CA echo doppler color flow Study Info Indications - new afib Complete two-dimensional, color flow and Doppler transthoracic echocardiogram is performed. Summary 1. Complete two-dimensional, color flow and Doppler transthoracic echocardiogram is performed. 2. Normal left ventricular size with mild concentric hypertrophy. Good systolic function of all segments with an ejection fraction of 66%. Grade 2 diastolic dysfunction is present. 3. Left atrial chamber dimension is moderately enlarged. 4. There is mild aortic valve regurgitation. 5. There is mild mitral valve regurgitation. 6. There is mild tricuspid valve regurgitation. 7. Moderate pulmonary hypertension, estimated pulmonary arterial systolic pressure is 53 mmHg. 8. Normal sinus rhythm. Left Ventricle Left ventricular chamber dimension is normal. Left ventricular systolic function is normal, estimated at 65-70%. There is mildly increased left ventricular wall thickness. Left ventricular septal wall motion is normal. The left ventricular diastolic function is grade II diastolic dysfunction. Right Ventricle Right ventricular chamber dimension is normal. Right ventricular systolic function is normal. Left Atria Left atrial chamber dimension is moderately enlarged. Right Atria Right atrial chamber dimension is normal. Aortic Valve The aortic valve is trileaflet. There is mild aortic valve sclerosis. There is no aortic valve stenosis. There is mild aortic valve regurgitation. Pulmonic Valve The pulmonic valve is normal. There is no pulmonic valve stenosis. There is trace pulmonic regurgitation. Mitral Valve The mitral valve has thickened leaflets. There is no mitral valve stenosis. There is mild mitral valve regurgitation. Tricuspid Valve The tricuspid valve leaflets are normal. There is no significant tricuspid valve stenosis. There is mild tricuspid valve regurgitation. Moderate pulmonary hypertension, estimated pulmonary arterial systolic pressure is 53 mmHg. Pericardium/Pleural The pericardium appears normal. There is no pericardial effusion. Inferior Vena Cava Normal inferior vena cava with >50% collapse upon inspiration consistent with Empty right atrial pressure, 10 mmHg. Aorta The aortic root size at the sinus of Valsalva is normal. The prox ascending aorta size is normal. Left Ventricular Outflow Tract Name Value Normal LVOT 2D LVOT Diameter 2.0 cm LVOT Doppler LVOT Peak Gradient 5 mmHg LVOT Mean Gradient 2 mmHg LVOT VTI 2
[2021-07-22] MEDS: HYDROmorphone HCL INJ (*CRX) 1 MG/ML SYR 0.5 MG IV PUSH ×2 (04:45→21:12)
[2021-07-22 04:56] LABS: Basophils Percent Auto 0.2 % (0.2-1.2); Eosinophils Percent Auto 0.1 % (0-4.4); Hematocrit 35.3 % (37.0-47.0); Hemoglobin 12.1 g/dL (12.0-15.0); Immature Granulocyte Absolute 0.07 K/mm3 (0.00-0.031); Immature Granulocyte Percent A 0.5 % (0-0.5); Lymphocytes Absolute Auto 0.91 K/mm3 (0.9-3.2); Lymphocytes Percent Auto 6.9 % (18.3-44.2); Mean Corpuscular HGB Conc 34.3 g/dl (32-36); Mean Corpuscular Volume 99.2 fl (80-100); Mean Platelet Volume 9.5 fl (7.4-10.4); Monocytes Absolute Auto 1.7 K/mm3 (0.1-0.6); Monocytes Percent Auto 13.1 % (2.6-8.5); Neutrophils Absolute Auto 10.4 K/mm3 (1.3-6.7); Neutrophils Percent Auto 79.2 % (45.5-73.1); Platelet Count Result 299 k/mm3 (150-375); Red Blood Count 3.56 M/mm3 (4.2-5.4); White Blood Count 13.1 K/mm3 (4.5-10.0)
[2021-07-22 05:07] LABS: Alanine Aminotransferase 28 U/L (6-35); Alkaline Phosphatase 83 U/L (38-126); Anion Gap 6 mmol/L (8-16); Aspartate Amino Transferase 40 U/L (14-36); Bilirubin,Total 0.7 mg/dL (0.2-1.3); Blood Urea Nitrogen 16 mg/dL (7-17); Calcium 9.2 mg/dL (8.4-10.2); Carbon Dioxide 27 mmol/L (22-30); Chloride 98 mmol/L (98-107); Estimated CRCL calculation 41 ml/min; Estimated Glomerular Filt Rate > 60; Glucose 144 mg/dL (65-110); Potassium 3.8 mmol/L (3.4-5.0); Sodium 131 mmol/L (137-145)
[2021-07-22] MEDS: LEVOTHYROXINE SODIUM 100 MCG TABLET BY MOUTH (05:11)
[2021-07-22] MEDS: LINACLOTIDE 145 MCG CAPSULE PO (05:12)
[2021-07-22] MEDS: FLUTICASONE PROPIONATE 0.05% NA SPR 16 GM BTL (*BKC) 2 SPRAY NASAL ×2 (08:36→21:11)
[2021-07-22] MEDS: LOSARTAN POTASSIUM 100 MG TABLET BY MOUTH (08:36)
[2021-07-22] MEDS: VITAMIN E 1,000 UNIT CAPSULE 2000 UNIT PO (08:36)
[2021-07-22] MEDS: busPIRone HCL 5 MG TABLET BY MOUTH ×3 (08:37→16:30)
[2021-07-22] MEDS: LORATADINE 10 MG TABLET PO (08:38)
[2021-07-22] MEDS: ASPIRIN 81 MG CHEWABLE TABLET PO (08:38)
[2021-07-22] MEDS: PARoxetine 20 MG TABLET PO (08:38)
[2021-07-22] MEDS: MULTIVITAMINS /C LUTEIN (CENTRUM SILVER) TABLET *BKC 1 TAB PO (08:38)
[2021-07-22] MEDS: buPROPion HCL XL (24 HR) 150 MG TABCR 300 MG BY MOUTH (08:38)
[2021-07-22] MEDS: hydroCHLOROthiazide 25 MG TABLET PO (08:38)
[2021-07-22] MEDS: CYANOCOBALAMIN 1,000 MCG TABLET 1000 MCG PO (08:38)
--- NOTE | 2021-07-22 09:58 | PM.CNCAR ---
Assessment and Plan Assessment and plan (1) Arrhythmia: Code(s): I49.9 - Cardiac arrhythmia, unspecified Status: Acute Assessment and Plan: Patient is a rhythm E a appears to be sinus rhythm with APCs, not atrial fibrillation. . Asymptomatic Assured the patient and her son that this was benign (2) Elevated troponin: Code(s): R77.8 - Other specified abnormalities of plasma proteins Status: Acute Assessment and Plan: Not sure why troponins were drawn but they were somewhat elevated. No chest pain or pressure, no ischemic changes on EKG May have struggled after her fall causing some cardiac stress but at least on admission and by EMS notes her heart rate and blood pressure were reasonable Doubt acute coronary syndrome although elevated troponins in any situation are marker for future cardiovascular events. Echocardiogram (3) Abnormal CXR: Code(s): R93.89 - Abnormal findings on diagnostic imaging of other specified body structures Status: Acute Assessment and Plan: Second chest x-ray suggested CHF. However the patient is not having any FARFAN or edema, just cough and congestion which is probably noncardiac. Not the best chest x-ray image. Check a BNP (4) Chronic back pain: Qualifiers: Back pain laterality: unspecified Back pain location: low back pain Sciatica presence: without sciatica Qualified Code(s): M54.50 - Low back pain, unspecified; G89.29 - Other chronic pain Code(s): M54.9 - Dorsalgia, unspecified; G89.29 - Other chronic pain Status: Acute Assessment and Plan: Back and left chest pain for 3 weeks, aggravated by recent fall. 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 COVID and influenza screens negative (6) Fall: Code(s): W19.XXXA - Unspecified fall, initial encounter Status: Acute Assessment and Plan: Isolated fall, no history of falls, denies lightheadedness or syncope. Getting OT and physical therapy evaluation. History of Present Illness History of Present Illness Consult date/time: 07/22/21 09:58 Requesting physician: Iban Saucedo MD Consult reason: atrial fibrillation and Other (elevated troponin) Reason For Visit: Urinary tract infection/elevated troponin/hypokale Narrative: Edith Davalos is an 86-year-old female whom I was asked to see at the request of Dr. Saucedo for my advice and opinion regarding her possible atrial fibrillation, and elevated troponins, in consultation. History of hypertension but no history of any heart disease. Ms. Cortes complained of a cough with some sputum production over the past 3 weeks ago. She was also having a lot of right posterolateral chest pain or 1 aggravated by movement and coughing. She went to the emergency room on July 19 with these complaints, workup fairly unremarkable and discharged with Flonase nasal spray. The patient continued to feel poorly and came to the emergency room on July 21 because she felt wobbly and had a fall in the bathroom, complaining of worsening left lateral chest wall pain and back pain. Again the chest discomfort was associated with movement and coughing. No injuries were found but she had an abnormal EKG, possibly atrial fibrillation. Her troponins have also been elevated, peaking at 0.140. The patient denies any chest pain pressure tightness and she denies any shortness of breath, PND, orthopnea or edema. Hisotry was obtained from the patient, her son who is at the bedside (as pt has memory loss), and EMR. Review of [employer]
[2021-07-22 12:45] LABS: NT Pro B Type Natriuretic Pept 1610 pg/mL (5-100)
--- NOTE | 2021-07-22 13:00 | PM.IMPN ---
Progress Note: A&P Assessment and Plan (1) Urinary tract infection: Qualifiers: Hematuria presence: without hematuria Urinary tract infection type: site unspecified Qualified Code(s): N39.0 - Urinary tract infection, site not specified Code(s): N39.0 - Urinary tract infection, site not specified Status: Acute Assessment and Plan: Continue IV Rocephin Follow culture result. (2) Hyponatremia: Code(s): E87.1 - Hypo-osmolality and hyponatremia Status: Acute Assessment and Plan: DC IV fluid improved Most likely related to CHF (3) Hypokalemia: Code(s): E87.6 - Hypokalemia Status: Acute Assessment and Plan: Replaced monitor (4) Elevated troponin: Code(s): R77.8 - Other specified abnormalities of plasma proteins Status: Acute Assessment and Plan: Cardiology consult No evidence of AFib Patient has multiple PVCs Echo pending. Concern for CHF Pending cardiology final recommendation (5) Weakness: Code(s): R53.1 - Weakness Status: Acute Assessment and Plan: Will have PT/ OT to evaluate and treat patient for any further recommendations. Do appreciate further recommendations. (6) Acute exacerbation of CHF (congestive heart failure): Code(s): I50.9 - Heart failure, unspecified Status: Acute Assessment and Plan: chest x-ray shows pulmonary edema give IV Lasix Subjective Date/time seen: 07/22/21 13:00 Interval history: 86-year-old female who presented to the emergency room with complaints of fatigue and weakness that has worsened over the last few days. Patient states last evening she did fall in her bathroom, but did not hit her head. Patient states she does have chronic back pain and has been seen multiple times for that patient was found to have elevated troponin hyponatremia hypokalemia probable UTI was treated with antibiotic also x-ray showed severe degenerative joint disease probably causing back pain Echo was ordered per Cardiology for evaluation of elevated Patient complains of generalized weakness still complaining of intermittent cough Patient denies fever headache chest pain I am seeing the patient for cough Exam Narrative: Alert Chest decreased air entry bilateral bilateral crackles Abdomen nontender nondistended CVS S1 + S2 Mild Lower extremity edema Objective Data Vital Signs Vital Signs: Vital Signs - 24 hr 07/21/21 13:18 07/21/21 13:21 07/21/21 13:34 Temperature Pulse Rate 87 83 Respiratory Rate 25 H 15 Blood Pressure 158/59 H Pulse Oximetry 95 95 07/21/21 13:49 07/21/21 14:00 07/21/21 14:16 Temperature Pulse Rate 88 87 91 Respiratory Rate 29 H 20 23 H Blood Pressure 154/84 H Pulse Oximetry 95 07/21/21 14:17 07/21/21 15:10 07/21/21 15:15 Temperature Pulse Rate 89 81 81 Respiratory Rate 18 18 18 Blood Pressure 151/71 H 151/71 H Pulse Oximetry 100 98 98 07/21/21 15:46 07/21/21 16:00 07/21/21 18:00 Temperature 98.3 F Pulse Rate 81 90 89 Respiratory Rate 14 Blood Pressure 146/59 H Pulse Oximetry 99 07/21/21 20:00 07/21/21 22:00 07/22/21 00:00 Temperature 98.7 F 98.0 F Pulse Rate 84 80 91 Respiratory Rate 22 H 24 H Blood Pressure 135/52 L 168/66 H Pulse Oximetry 90 92 07/22/21 02:00 07/22/21 04:00 07/22/21 06:00 Temperature 98.0 F Pulse Rate 89 100 88 Respiratory Rate 22 H Blood Pressure 157/75 H Pulse Oximetry 92 07/22/21 08:00 07/22/21 08:33 07/22/21 10:00 Temperature 98.3 F Pulse Rate 85 81 Respiratory Rate 22 H Blood Pressure 171/66 H Pulse Oximetry 93 93 07/22/21 12:00 Temperature Pulse Rate 82 Respiratory Rate Blood Pressure Pulse Oximetry Intake/Output Intake/Output: Intake & Output 07/19/21 07/20/21 07/21/21 07/22/21 23:59 23:59 23:59 23:59 Intake Total 1290 670 Output Total 200 1000 Balance 1090 -330 Meds/Results Medications
[2021-07-22] MEDS: FUROSEMIDE INJ 40 MG/4 ML VIAL IV PUSH (16:30)
--- NOTE | 2021-07-22 17:19 | PM.CNGS ---
Assessment and Plan Assessment and plan (1) Traumatic fracture of ribs of left side with pneumothorax with routine healing: Code(s): S22.42XD - Multiple fractures of ribs, left side, subsequent encounter for fracture with routine healing; S27.0XXD - Traumatic pneumothorax, subsequent encounter Status: Acute Assessment and Plan: patient has fractures of ribs 2 through 7 on the left and an associated small left apical pneumothorax which as best I can tell is asymptomatic. Will get repeat chest x-ray tomorrow morning. May need to repeat 1-2 days again after that. No need for chest tube at this point. Will follow along with you. (2) Fall: Code(s): W19.XXXA - Unspecified fall, initial encounter Status: Acute Assessment and Plan: fall. Fell at home in the bathroom yesterday. (3) Urinary tract infection: Qualifiers: Hematuria presence: without hematuria Urinary tract infection type: site unspecified Qualified Code(s): N39.0 - Urinary tract infection, site not specified Code(s): N39.0 - Urinary tract infection, site not specified Status: Acute Assessment and Plan: E coli, patient was feeling weak, may have been the cause of her fall (4) Chronic back pain: Qualifiers: Back pain laterality: unspecified Back pain location: low back pain Sciatica presence: without sciatica Qualified Code(s): M54.50 - Low back pain, unspecified; G89.29 - Other chronic pain Code(s): M54.9 - Dorsalgia, unspecified; G89.29 - Other chronic pain Status: Chronic Assessment and Plan: Main complaint on presenting to the emergency room yesterday. This is a chronic complaint, worsened by falling at home. No fractures by lumbosacral spine imaging. History of Present Illness Consult details Consult date: 07/23/21 Reason for consult: other ( Pneumothorax, rib fractures) Requesting physician: Natalee Clark M.A., MD Narrative: the patient is an 86-year-old woman who has chronic back pain. Yesterday she came to the emergency room after falling at home in her bathroom. She was seen in the emergency room around noon yesterday. She had been complaining only of back pain. She was admitted for pain control and further evaluation. She had been feeling weak and was found to have a urinary tract infection with E coli. This is being treated. Today rib films were obtained on the left side and showed 6 rib fractures and a small apical pneumothorax on the left. Patient is on oxygen but sats are good without oxygen. She has been up walking around and has not been complaining of shortness of breath although she does continue to have back pain. She has not really been experiencing much in the way of rib pain. I was asked to see her in consultation regarding the incidental finding of a small left apical pneumothorax on plain films today of the ribs. No pneumothorax was seen on chest x-ray done yesterday. Review of Systems Review of Systems: All systems reviewed & are unremarkable except as noted in HPI and below Constitutional: Constitutional: Denies chills and Denies fever(s) Cardiovascular: Cardiovascular: Denies chest pain, Denies diaphoresis, Denies dyspnea and Denies paroxysmal nocturnal dyspnea Respiratory: Respiratory: Denies chest congestion, Denies cough and Denies dyspnea Integumentary/Breasts: Skin/Breast: Denies lesions and Denies rash PMFSH Past Medical History Medical History Anxiety Benign essential hypertension Body mass index (bmi) 34.0-34.9, adult Constipation, unspecified Hypothyroidism, unspecified Major depressive disorder, recurrent, unspecified Overweight Screening for breast cancer Screening for osteoporosis Family History Family History Father Acute myocardial infarction Social History Social History (Reviewed 07/22/21 @ 17:2
[2021-07-22] MEDS: ENOXAPARIN 40 MG/0.4 ML SYRINGE SUB-Q (21:12)
[2021-07-23] VITALS (13 sets, daily range): BP systolic 105–151; BP diastolic 44–98; PULSE 72–93; RESP 16–22; TEMP 36.4–36.8; O2SAT 95–99
[2021-07-23] MEDS: LEVOTHYROXINE SODIUM 100 MCG TABLET BY MOUTH (05:49)
[2021-07-23] MEDS: LINACLOTIDE 145 MCG CAPSULE PO (05:49)
[2021-07-23] MEDS: PARoxetine 20 MG TABLET PO (09:33)
[2021-07-23] MEDS: buPROPion HCL XL (24 HR) 150 MG TABCR 300 MG BY MOUTH (09:33)
[2021-07-23] MEDS: calcium polycarbophiL 625 MG TABLET 1250 MG PO (09:33)
[2021-07-23] MEDS: VITAMIN E 1,000 UNIT CAPSULE 2000 UNIT PO (09:33)
[2021-07-23] MEDS: busPIRone HCL 5 MG TABLET BY MOUTH ×3 (09:33→17:46)
[2021-07-23] MEDS: FLUTICASONE PROPIONATE 0.05% NA SPR 16 GM BTL (*BKC) 2 SPRAY NASAL ×2 (09:34→20:46)
[2021-07-23] MEDS: LORATADINE 10 MG TABLET PO (09:34)
[2021-07-23] MEDS: CYANOCOBALAMIN 1,000 MCG TABLET 1000 MCG PO (09:34)
[2021-07-23] MEDS: LOSARTAN POTASSIUM 100 MG TABLET BY MOUTH (09:34)
[2021-07-23] MEDS: ASPIRIN 81 MG CHEWABLE TABLET PO (09:34)
[2021-07-23] MEDS: MULTIVITAMINS /C LUTEIN (CENTRUM SILVER) TABLET *BKC 1 TAB PO (09:34)
[2021-07-23] MEDS: FUROSEMIDE INJ 40 MG/4 ML VIAL IV PUSH ×2 (09:34→17:46)
--- NOTE | 2021-07-23 12:47 | PM.PNGS ---
Progress Note: A&P Assessment and Plan (1) Traumatic fracture of ribs of left side with pneumothorax with routine healing: Code(s): S22.42XD - Multiple fractures of ribs, left side, subsequent encounter for fracture with routine healing; S27.0XXD - Traumatic pneumothorax, subsequent encounter Status: Acute Assessment and Plan: Chest x-ray this morning showed no pneumothorax. Patient remains stable and still has no respiratory complaints or chest pain. Will repeat another chest x-ray tomorrow to recheck. (2) Fall: Code(s): W19.XXXA - Unspecified fall, initial encounter Status: Acute (3) Urinary tract infection: Qualifiers: Hematuria presence: without hematuria Urinary tract infection type: site unspecified Qualified Code(s): N39.0 - Urinary tract infection, site not specified Code(s): N39.0 - Urinary tract infection, site not specified Status: Acute (4) Chronic back pain: Qualifiers: Back pain laterality: unspecified Back pain location: low back pain Sciatica presence: without sciatica Qualified Code(s): M54.50 - Low back pain, unspecified; G89.29 - Other chronic pain Code(s): M54.9 - Dorsalgia, unspecified; G89.29 - Other chronic pain Status: Chronic Additional Plan I have discussed the patient's case and plan of care with Dr. Billings. Subjective Subjective Date/Time Seen: 07/23/21 12:47 Patient reports: no new complaints Interval history: Patient seen and examined. Chart reviewed. She is still having some back pain, but no new pain. She denies any chest pain or shortness of breath. She is currently on 2L O2 NC but O2 sats are good. She appears comfortable and is sitting up in the chair. Exam Const: General: comfortable, no acute distress and awake Orientation/consciousness: patient oriented x3 Resp: Effort & Inspection: normal respiratory effort, not labored and no respiratory distress Auscultation: crackles bilateral at the base and diminished lung sounds bilateral in the lower lung meneses Objective Data Vital Signs Vital Signs: Vital Signs - 24 hr 07/22/21 14:00 07/22/21 16:00 07/22/21 16:51 Temperature 98.1 F Pulse Rate 92 101 H Respiratory Rate 20 Blood Pressure 135/53 L Pulse Oximetry 95 96 07/22/21 18:00 07/22/21 20:00 07/22/21 20:35 Temperature 98.0 F Pulse Rate 95 93 Respiratory Rate 20 Blood Pressure 150/51 H Pulse Oximetry 97 95 07/22/21 22:00 07/23/21 00:00 07/23/21 02:00 Temperature 97.5 F L Pulse Rate 90 74 77 Respiratory Rate 16 Blood Pressure 105/44 L Pulse Oximetry 99 07/23/21 04:00 07/23/21 06:00 07/23/21 08:00 Temperature 97.8 F 98.2 F Pulse Rate 76 85 77 Respiratory Rate 20 20 Blood Pressure 135/98 H 151/67 H Pulse Oximetry 97 95 07/23/21 08:20 07/23/21 10:00 07/23/21 12:00 Temperature 98.3 F Pulse Rate 78 91 Respiratory Rate 22 H Blood Pressure 129/52 L Pulse Oximetry 95 98 Intake/Output Intake/Output: Intake & Output 07/20/21 07/21/21 07/22/21 07/23/21 23:59 23:59 23:59 23:59 Intake Total 1290 910 610 Output Total 200 1950 500 Balance 1090 -1040 110 Meds/Results Medications: Active Medications Generic Name Dose Route Start Last Admin Trade Name Freq PRN Reason Stop Dose Admin Acetaminophen 650 mg 07/21/21 14:15 Acetaminophen 325 Mg Tablet PO Q4H PRN Mild Pain (1-3) or Fever Aspirin 81 mg 07/21/21 16:00 07/23/21 09:34 Aspirin 81 Mg Chewable Tablet PO 81 mg DAILY@0800 [facility] Administration Bupropion HCl 300 mg 07/22/21 09:00 07/23/21 09:33 Bupropion Hcl Xl (24 Hr) 150 Mg Tabcr BY MOUTH 300 mg QAM ILANA Administration Buspirone HCl 5 mg 07/21/21 18:50 07/23/21 12:28 Buspirone Hcl 5 Mg Tablet BY MOUTH 5 mg TID ILANA Administration Calcium Citrate 2 tablet 07/21/21 17:00 07/23/21 12:28 Calcium Citrate 315 Mg/Vitamin D 250 Units Tab PO 08/21/21 16:59 2 tablet TID [facility] Ad
--- NOTE | 2021-07-23 15:12 | PM.IMPN ---
Progress Note: A&P Assessment and Plan (1) Urinary tract infection: Qualifiers: Hematuria presence: without hematuria Urinary tract infection type: site unspecified Qualified Code(s): N39.0 - Urinary tract infection, site not specified Code(s): N39.0 - Urinary tract infection, site not specified Status: Acute Assessment and Plan: Continue IV Rocephin Urine culture with E coli sensitive to Rocephin continue same (2) Hyponatremia: Code(s): E87.1 - Hypo-osmolality and hyponatremia Status: Acute Assessment and Plan: DC IV fluid improved Most likely related to CHF Continues to improve (3) Hypokalemia: Code(s): E87.6 - Hypokalemia Status: Acute Assessment and Plan: Replaced monitor (4) Elevated troponin: Code(s): R77.8 - Other specified abnormalities of plasma proteins Status: Acute Assessment and Plan: Cardiology consult No evidence of AFib Patient has multiple PVCs Echo pending. Concern for CHF Cardiology been consulted. Troponin elevation with flat trajectory (5) Weakness: Code(s): R53.1 - Weakness Status: Acute Assessment and Plan: PT/ OT to evaluate and treat patient for any further recommendations. (6) Acute exacerbation of CHF (congestive heart failure): Code(s): I50.9 - Heart failure, unspecified Status: Acute Assessment and Plan: chest x-ray shows pulmonary edema Chest x-ray today with bilateral pleural effusion/hemothorax left greater than right (7) Traumatic fracture of ribs of left side with pneumothorax with routine healing: Code(s): S22.42XD - Multiple fractures of ribs, left side, subsequent encounter for fracture with routine healing; S27.0XXD - Traumatic pneumothorax, subsequent encounter Status: Acute Assessment and Plan: General surgery following (8) Fall: Code(s): W19.XXXA - Unspecified fall, initial encounter Status: Acute Assessment and Plan: Follow on admission. PT OT to evaluate Subjective Date/time seen: 07/23/21 15:12 Interval history: 86-year-old female who presented to the emergency room with complaints of fatigue and weakness that has worsened over the last few days. Patient states last evening she did fall in her bathroom, but did not hit her head. Patient states she does have chronic back pain and has been seen multiple times for that patient was found to have elevated troponin hyponatremia hypokalemia probable UTI was treated with antibiotic also x-ray showed severe degenerative joint disease probably causing back pain Echo was ordered per Cardiology for evaluation of elevated 07/23/2021 reports upper back pain. Breathing is okay. Bruises on the left chest wall. Denies any other complaints. Denies shortness of breath or chest pain Review of Systems Review of Systems: All systems reviewed & are unremarkable except as noted in HPI and below (HPI) Exam Narrative: Alert and oriented x3 not in acute distress Chest decreased air entry bilateral bilateral crackles Chest wall with bruise noted on left breast and left chest wall Pack tender paraspinal area and upper thoracic area Abdomen nontender nondistended CVS S1 + S2 No edema cyanosis or clubbing Objective Data Vital Signs Vital Signs: Vital Signs - 24 hr 07/22/21 16:00 07/22/21 16:51 07/22/21 18:00 Temperature 98.1 F Pulse Rate 101 H 95 Respiratory Rate 20 Blood Pressure 135/53 L Pulse Oximetry 95 96 07/22/21 20:00 07/22/21 20:35 07/22/21 22:00 Temperature 98.0 F Pulse Rate 93 90 Respiratory Rate 20 Blood Pressure 150/51 H Pulse Oximetry 97 95 07/23/21 00:00 07/23/21 02:00 07/23/21 04:00 Temperature 97.5 F L 97.8 F Pulse Rate 74 77 76 Respiratory Rate 16 20 Blood Pressure 105/44 L 135/98 H Pulse Oximetry 99 97 07/23/21 06:00 07/23/21 08:00 07/23/21 08:20 Temperature 98.2 F Pulse Rate 85 77 Respirato
--- NOTE | 2021-07-23 16:18 | PCCCNOTE ---
On 07/23/21, the student, [Dorota Foreman], provided care and completed [facility] documentation on this patient. I have reviewed the student's documentation and agree with the findings.
[2021-07-23] MEDS: HYDROmorphone HCL INJ (*CRX) 1 MG/ML SYR 0.5 MG IV PUSH (18:54)
[2021-07-23] MEDS: ENOXAPARIN 40 MG/0.4 ML SYRINGE SUB-Q (20:46)
[2021-07-24] VITALS (15 sets, daily range): BP systolic 118–156; BP diastolic 40–76; PULSE 57–106; RESP 20–24; TEMP 36.2–37.6; O2SAT 92–99
[2021-07-24 05:05] LABS: Basophils Percent Auto 0.3 % (0.2-1.2); Eosinophils Absolute Auto 0.2 K/mm3 (0-0.3); Eosinophils Percent Auto 1.2 % (0-4.4); Hematocrit 34.4 % (37.0-47.0); Hemoglobin 11.4 g/dL (12.0-15.0); Immature Granulocyte Absolute 0.08 K/mm3 (0.00-0.031); Immature Granulocyte Percent A 0.6 % (0-0.5); Lymphocytes Absolute Auto 1.64 K/mm3 (0.9-3.2); Lymphocytes Percent Auto 11.9 % (18.3-44.2); Mean Corpuscular HGB Conc 33.1 g/dl (32-36); Mean Corpuscular Hemoglobin 32.9 pg (26-34); Mean Corpuscular Volume 99.4 fl (80-100); Mean Platelet Volume 9.8 fl (7.4-10.4); Monocytes Absolute Auto 1.8 K/mm3 (0.1-0.6); Neutrophils Absolute Auto 10.1 K/mm3 (1.3-6.7); Platelet Count Result 299 k/mm3 (150-375); Red Blood Count 3.46 M/mm3 (4.2-5.4); Red Cell Distribution Width 13.2 % (11.5-14.5); White Blood Count 13.8 K/mm3 (4.5-10.0)
[2021-07-24 05:23] LABS: Alanine Aminotransferase 23 U/L (6-35); Albumin Level 3.6 g/dL (3.5-5.1); Alkaline Phosphatase 67 U/L (38-126); Anion Gap 4 mmol/L (8-16); Aspartate Amino Transferase 29 U/L (14-36); Bilirubin,Total 0.7 mg/dL (0.2-1.3); Blood Urea Nitrogen 23 mg/dL (7-17); Calcium 8.8 mg/dL (8.4-10.2); Carbon Dioxide 37 mmol/L (22-30); Chloride 91 mmol/L (98-107); Estimated CRCL calculation 37 ml/min; Estimated Glomerular Filt Rate 59; Glucose 131 mg/dL (65-110); Magnesium 1.9 mg/dL (1.6-2.3); Potassium 2.8 mmol/L (3.4-5.0); Sodium 132 mmol/L (137-145)
[2021-07-24] MEDS: LINACLOTIDE 145 MCG CAPSULE PO (05:41)
[2021-07-24] MEDS: LEVOTHYROXINE SODIUM 100 MCG TABLET BY MOUTH (05:41)
[2021-07-24] MEDS: POTASSIUM CHLORIDE INJ 40 MEQ in SODIUM CHLORIDE 0.9% IV 500 ML 130 MEQ IVPB (06:38)
[2021-07-24] MEDS: ACETAMINOPHEN 325 MG TABLET 650 MG PO (08:52)
[2021-07-24] MEDS: VITAMIN E 1,000 UNIT CAPSULE 2000 UNIT PO (08:53)
[2021-07-24] MEDS: calcium polycarbophiL 625 MG TABLET 1250 MG PO (08:53)
[2021-07-24] MEDS: ASPIRIN 81 MG CHEWABLE TABLET PO (08:53)
[2021-07-24] MEDS: busPIRone HCL 5 MG TABLET BY MOUTH ×3 (08:53→17:21)
[2021-07-24] MEDS: LOSARTAN POTASSIUM 100 MG TABLET BY MOUTH (08:54)
[2021-07-24] MEDS: CYANOCOBALAMIN 1,000 MCG TABLET 1000 MCG PO (08:54)
[2021-07-24] MEDS: PARoxetine 20 MG TABLET PO (08:55)
[2021-07-24] MEDS: FUROSEMIDE INJ 40 MG/4 ML VIAL IV PUSH (08:55)
[2021-07-24] MEDS: MULTIVITAMINS /C LUTEIN (CENTRUM SILVER) TABLET *BKC 1 TAB PO (08:55)
[2021-07-24] MEDS: buPROPion HCL XL (24 HR) 150 MG TABCR 300 MG BY MOUTH (08:55)
[2021-07-24] MEDS: LORATADINE 10 MG TABLET PO (08:55)
[2021-07-24] MEDS: CHOLECALCIFEROL 1,000 UNITS TABLET 1000 UNITS PO (08:55)
[2021-07-24] MEDS: FLUTICASONE PROPIONATE 0.05% NA SPR 16 GM BTL (*BKC) 2 SPRAY NASAL ×2 (08:55→20:52)
--- NOTE | 2021-07-24 09:03 | PM.PNCARD ---
Progress Note: A&P Assessment and Plan (1) Arrhythmia: Code(s): I49.9 - Cardiac arrhythmia, unspecified Status: Acute Assessment and Plan: Patient is a rhythm E a appears to be sinus rhythm with APCs, not atrial fibrillation. Asymptomatic (2) Elevated troponin: Code(s): R77.8 - Other specified abnormalities of plasma proteins Status: Acute Assessment and Plan: Not sure why troponins were drawn but they were somewhat elevated. No chest pain or pressure, no ischemic changes on EKG May have struggled after her fall causing some cardiac stress but at least on admission and by EMS notes her heart rate and blood pressure were reasonable Doubt acute coronary syndrome although elevated troponins in any situation are marker for future cardiovascular events. Echocardiogram showed normal systolic function, EF 66%. She does have grade 2 diastolic dysfunction. No significant valvular abnormalities. She does have moderate pulmonary hypertension, estimated PASP 53 mmHg. Cardiology will sign off for now. Please do not hesitate to contact us with any further questions. (3) Abnormal CXR: Code(s): R93.89 - Abnormal findings on diagnostic imaging of other specified body structures Status: Acute Assessment and Plan: Second chest x-ray suggested CHF. No evidence of volume overload on exam. Will shift to p.o. lasix today. (4) Chronic back pain: Qualifiers: Back pain laterality: unspecified Back pain location: low back pain Sciatica presence: without sciatica Qualified Code(s): M54.50 - Low back pain, unspecified; G89.29 - Other chronic pain Code(s): M54.9 - Dorsalgia, unspecified; G89.29 - Other chronic pain Status: Chronic Assessment and Plan: Back and left chest pain for 3 weeks, aggravated by recent fall. (5) Cough: Code(s): R05.9 - Cough, unspecified Status: Acute Assessment and Plan: Complains of cough and congestion for the past 3 weeks, probably viral. COVID and influenza screens negative (6) Fall: Code(s): W19.XXXA - Unspecified fall, initial encounter Status: Acute Assessment and Plan: Isolated fall, no history of falls, denies lightheadedness or syncope. Getting OT and physical therapy evaluation. Subjective Date/time seen: 07/24/21 09:03 cardiology follow-up for elevated troponins Feels well today. Continues to have some rib soreness. She denies shortness of breath or chest pain. Review of Systems Constitutional: Constitutional: Reports weakness Eyes: Eyes: Reports no additional eye complaints ENT: Denies epistaxis, Denies nasal congestion and Denies nasal discharge Cardiovascular: Cardiovascular: Reports chest pain, Denies pedal edema, Denies leg edema, Denies lightheadedness, Denies palpitations, Denies dyspnea and Denies dyspnea on exertion Respiratory: Respiratory: Reports chest congestion, Reports cough, Denies dyspnea, Denies dyspnea on exertion and Denies wheezing Gastrointestinal: Gastrointestinal: Reports constipation (IBS) Genitourinary: Genitourinary: Denies hematuria Musculoskeletal: Musculoskeletal: Reports back pain and Denies stiffness Integumentary/Breasts: Skin/Breast: Denies rash and Reports wounds (bruise left breast) Neurologic: Reports confusion (admits to poor memory) and Reports weakness Psychiatric: Psychiatric: Reports no additional psychiatric complaints and Reports confusion (admits to poor memory) Endocrine: Endocrine: Denies palpitations Allergic/Immunologic: Allergic/Immunologic: Denies wheezing Exam Const: General: no acute distress, confusion (admits to poor memory) and uncomfortable Orientation/consciousness: confusion (admits to poor memory) HENMT: General nose exam: no epistaxis Mouth: Yes moist mucous membranes Eyes: EOM: EOMs intact bilaterally
--- NOTE | 2021-07-24 11:24 | PM.PNGS ---
Progress Note: A&P Assessment and Plan (1) Traumatic fracture of ribs of left side with pneumothorax with routine healing: Code(s): S22.42XD - Multiple fractures of ribs, left side, subsequent encounter for fracture with routine healing; S27.0XXD - Traumatic pneumothorax, subsequent encounter Status: Acute Assessment and Plan: Fortunately patient has minimal symptoms from her rib fractures. Her small left pneumothorax seen on rib films is not present on chest x-ray done yesterday or today. It was not present on admission either. Small pneumothoraces associated with rib fractures rarely require chest tube placement. Patient appears to be asymptomatic from the pneumothorax and minimally symptomatic from the rib fractures. We will sign off. If situation or condition should change, please let us know. (2) Fall: Qualifiers: Encounter type: subsequent encounter Qualified Code(s): W19.XXXD - Unspecified fall, subsequent encounter Code(s): W19.XXXA - Unspecified fall, initial encounter Status: Acute Subjective Subjective Date/Time Seen: 07/24/21 11:24 Patient reports: no new complaints and pain is less (No complaints of chest pain, no shortness of breath) Review of Systems Review of Systems: All systems reviewed & are unremarkable except as noted in HPI and below Cardiovascular: Cardiovascular: Denies chest pain and Denies dyspnea Respiratory: Respiratory: Denies cough and Denies dyspnea Exam Const: General: cooperative, comfortable, no acute distress, alert and awake; No confusion Nutritional Appearance: overweight Chest: Chest palpation & inspection: normal palpation of entire chest wall, abnormal inspection of the chest (Bruise on breast and chest wall), no localized rib tenderness and no tenderness Resp: Effort & Inspection: normal respiratory effort, able to speak in complete sentences and no cough Auscultation: crackles and diminished lung sounds (Both bases) Extrem: General: no calf tenderness and no edema Objective Data Vital Signs Vital Signs: Vital Signs - 24 hr 07/23/21 12:00 07/23/21 14:00 07/23/21 16:00 Temperature 36.8 C 36.6 C Pulse Rate 90 92 84 Respiratory Rate 22 H 20 Blood Pressure 129/52 L 135/59 L Pulse Oximetry 95 98 07/23/21 18:00 07/23/21 20:00 07/23/21 22:00 Temperature 36.5 C Pulse Rate 90 88 93 Respiratory Rate 20 Blood Pressure 148/59 H Pulse Oximetry 98 07/24/21 00:00 07/24/21 02:00 07/24/21 04:00 Temperature 37.6 C H 36.2 C L Pulse Rate 94 83 95 Respiratory Rate 20 20 Blood Pressure 138/52 L 156/76 H Pulse Oximetry 98 99 07/24/21 05:21 07/24/21 06:00 07/24/21 08:00 Temperature 36.8 C Pulse Rate 80 92 Respiratory Rate 20 Blood Pressure 153/69 H Pulse Oximetry 97 98 07/24/21 10:00 Temperature Pulse Rate 87 Respiratory Rate Blood Pressure Pulse Oximetry Intake/Output Intake/Output: Intake & Output 07/21/21 07/22/21 07/23/21 07/24/21 23:59 23:59 23:59 23:59 Intake Total 5015 806 8994 400 Output Total 200 1950 2700 1400 Balance 1090 -1040 -480 -1000 Meds/Results Medications: Active Medications Generic Name Dose Route Start Last Admin Trade Name Kate PRN Reason Stop Dose Admin Acetaminophen 650 mg 07/21/21 14:15 07/24/21 08:52 Acetaminophen 325 Mg Tablet PO 650 mg Q4H PRN Administration Mild Pain (1-3) or Fever Aspirin 81 mg 07/21/21 16:00 07/24/21 08:53 Aspirin 81 Mg Chewable Tablet PO 81 mg DAILY@0800 ILANA Administration Bupropion HCl 300 mg 07/22/21 09:00 07/24/21 08:55 Bupropion Hcl Xl (24 Hr) 150 Mg Tabcr BY MOUTH 300 mg QAM ILANA Administration Buspirone HCl 5 mg 07/21/21 18:50 07/24/21 08:53 Buspirone Hcl 5 Mg Tablet BY MOUTH 5 mg TID ILANA Administration Calcium Citrate 2 tablet 07/21/21 17:00 07/24/21 08:53 Calcium Citrate 315 Mg/Vitamin D 250 Units Tab PO 08/21/21 16:59 2 tablet TID ILANA Administration
--- NOTE | 2021-07-24 12:19 | WPDCDIQUERY2 ---
CDI Query Clarification Request 07/22 Hospitalist documented: Acute exacerbation of CHF (congestive heart failure): Code(s): I50.9 - Heart failure, unspecified Status: Acute Assessment and Plan: chest x-ray shows pulmonary edema give IV Lasix 07/23 Hospitalist documented: Chest x-ray today with bilateral pleural effusion/hemothorax left greater than right Please clarify if diagnosis of Acute Congestive Heart Failure is Systolic, Diastolic, combined, other or unable to determine <Sandra Rust - Last Filed: 07/24/21 12:25>
--- NOTE | 2021-07-24 14:07 | PCCCNOTE ---
On 07/24/21, the student, [Dorota Foreman], provided care and completed [facility] documentation on this patient. I have reviewed the student's documentation and agree with the findings.
--- NOTE | 2021-07-24 16:50 | PM.IMPN ---
Progress Note: A&P Assessment and Plan (1) Urinary tract infection: Qualifiers: Hematuria presence: without hematuria Urinary tract infection type: site unspecified Qualified Code(s): N39.0 - Urinary tract infection, site not specified Code(s): N39.0 - Urinary tract infection, site not specified Status: Acute Assessment and Plan: Continue IV Rocephin Urine culture with E coli sensitive to Rocephin continue same (2) Hyponatremia: Code(s): E87.1 - Hypo-osmolality and hyponatremia Status: Acute Assessment and Plan: DC IV fluid improved Most likely related to CHF Continues to improve (3) Hypokalemia: Code(s): E87.6 - Hypokalemia Status: Acute Assessment and Plan: Replaced monitor (4) Elevated troponin: Code(s): R77.8 - Other specified abnormalities of plasma proteins Status: Acute Assessment and Plan: Cardiology consult No evidence of AFib Patient has multiple PVCs Echo pending. Concern for CHF Cardiology been consulted. Troponin elevation with flat trajectory (5) Weakness: Code(s): R53.1 - Weakness Status: Acute Assessment and Plan: PT/ OT to evaluate and treat patient for any further recommendations. (6) Acute exacerbation of CHF (congestive heart failure): Code(s): I50.9 - Heart failure, unspecified Status: Acute Assessment and Plan: chest x-ray shows pulmonary edema Chest x-ray today with bilateral pleural effusion/hemothorax left greater than right Echo 07/22/2021 with EF 66% grade 2 diastolic dysfunction moderate pulmonary hypertension no significant valvular abnormality Acute on chronic diastolic heart failure Was on IV diuresis is been switched to oral today Chest x-ray 07/24/2021 reviewed (7) Traumatic fracture of ribs of left side with pneumothorax with routine healing: Code(s): S22.42XD - Multiple fractures of ribs, left side, subsequent encounter for fracture with routine healing; S27.0XXD - Traumatic pneumothorax, subsequent encounter Status: Acute Assessment and Plan: General surgery following Repeat chest x-ray negative for pneumothorax (8) Fall: Qualifiers: Encounter type: subsequent encounter Qualified Code(s): W19.XXXD - Unspecified fall, subsequent encounter Code(s): W19.XXXA - Unspecified fall, initial encounter Status: Acute Assessment and Plan: Follow on admission. PT OT to evaluate Subjective Date/time seen: 07/24/21 16:50 Interval history: 86-year-old female who presented to the emergency room with complaints of fatigue and weakness that has worsened over the last few days. Patient states last evening she did fall in her bathroom, but did not hit her head. Patient states she does have chronic back pain and has been seen multiple times for that patient was found to have elevated troponin hyponatremia hypokalemia probable UTI was treated with antibiotic also x-ray showed severe degenerative joint disease probably causing back pain Echo was ordered per Cardiology for evaluation of elevated 07/23/2021 reports upper back pain. Breathing is okay. Bruises on the left chest wall. Denies any other complaints. Denies shortness of breath or chest pain 07/24/2021 complains of fatigue. No chest pain or shortness of breath. Back pain is controlled with pain medication. Afebrile. No cough Review of Systems Review of Systems: All systems reviewed & are unremarkable except as noted in HPI and below (HPI) Exam Narrative: Alert and oriented x3 not in acute distress Chest decreased air entry bilateral bilateral crackles Chest wall with bruise noted on left breast and left chest wall bluing oven tender paraspinal area and upper thoracic area Abdomen nontender nondistended CVS S1 + S2 No edema cyanosis or clubbing Objective Data Vital Signs Vital Signs: Vital Signs - 24 hr 07/23/21 18:00 07/23/21 20:00 07/23/21 2
[2021-07-24 18:03] LABS: Potassium 3.4 mmol/L (3.4-5.0)
[2021-07-24] MEDS: POTASSIUM CHLORIDE 20 MEQ TABLET 40 MEQ PO (18:31)
[2021-07-24] MEDS: ENOXAPARIN 40 MG/0.4 ML SYRINGE SUB-Q (20:52)
[2021-07-25] VITALS (8 sets, daily range): BP systolic 124–161; BP diastolic 47–69; PULSE 81–97; RESP 20–24; TEMP 36.4–36.8; O2SAT 94–97
[2021-07-25 04:52] LABS: Basophils Percent Auto 0.3 % (0.2-1.2); Eosinophils Absolute Auto 0.2 K/mm3 (0-0.3); Eosinophils Percent Auto 1.9 % (0-4.4); Hematocrit 33.8 % (37.0-47.0); Hemoglobin 11.3 g/dL (12.0-15.0); Immature Granulocyte Absolute 0.06 K/mm3 (0.00-0.031); Immature Granulocyte Percent A 0.5 % (0-0.5); Lymphocytes Absolute Auto 1.36 K/mm3 (0.9-3.2); Lymphocytes Percent Auto 11.3 % (18.3-44.2); Mean Corpuscular HGB Conc 33.4 g/dl (32-36); Mean Corpuscular Hemoglobin 33.3 pg (26-34); Mean Corpuscular Volume 99.7 fl (80-100); Mean Platelet Volume 9.7 fl (7.4-10.4); Monocytes Absolute Auto 1.5 K/mm3 (0.1-0.6); Monocytes Percent Auto 12.2 % (2.6-8.5); Neutrophils Absolute Auto 8.9 K/mm3 (1.3-6.7); Neutrophils Percent Auto 73.8 % (45.5-73.1); Platelet Count Result 316 k/mm3 (150-375); Red Blood Count 3.39 M/mm3 (4.2-5.4); Red Cell Distribution Width 13.5 % (11.5-14.5)
[2021-07-25 05:09] LABS: Alanine Aminotransferase 23 U/L (6-35); Albumin Level 3.3 g/dL (3.5-5.1); Alkaline Phosphatase 68 U/L (38-126); Anion Gap 4 mmol/L (8-16); Aspartate Amino Transferase 27 U/L (14-36); Bilirubin,Total 0.6 mg/dL (0.2-1.3); Blood Urea Nitrogen 22 mg/dL (7-17); Calcium 8.3 mg/dL (8.4-10.2); Carbon Dioxide 34 mmol/L (22-30); Chloride 96 mmol/L (98-107); Estimated CRCL calculation 42 ml/min; Estimated Glomerular Filt Rate > 60; Glucose 135 mg/dL (65-110); Magnesium 2.1 mg/dL (1.6-2.3); Potassium 3.7 mmol/L (3.4-5.0); Sodium 134 mmol/L (137-145)
[2021-07-25] MEDS: LEVOTHYROXINE SODIUM 100 MCG TABLET BY MOUTH (05:40)
[2021-07-25] MEDS: LINACLOTIDE 145 MCG CAPSULE PO (05:40)
[2021-07-25] MEDS: buPROPion HCL XL (24 HR) 150 MG TABCR 300 MG BY MOUTH (08:34)
[2021-07-25] MEDS: ASPIRIN 81 MG CHEWABLE TABLET PO (08:34)
[2021-07-25] MEDS: FLUTICASONE PROPIONATE 0.05% NA SPR 16 GM BTL (*BKC) 2 SPRAY NASAL (08:34)
[2021-07-25] MEDS: VITAMIN E 1,000 UNIT CAPSULE 2000 UNIT PO (08:34)
[2021-07-25] MEDS: PARoxetine 20 MG TABLET PO (08:34)
[2021-07-25] MEDS: FUROSEMIDE 40 MG TABLET PO (08:34)
[2021-07-25] MEDS: busPIRone HCL 5 MG TABLET BY MOUTH ×2 (08:34→12:08)
[2021-07-25] MEDS: MULTIVITAMINS /C LUTEIN (CENTRUM SILVER) TABLET *BKC 1 TAB PO (08:35)
[2021-07-25] MEDS: calcium polycarbophiL 625 MG TABLET 1250 MG PO (08:35)
[2021-07-25] MEDS: LORATADINE 10 MG TABLET PO (08:35)
[2021-07-25] MEDS: CYANOCOBALAMIN 1,000 MCG TABLET 1000 MCG PO (08:35)
[2021-07-25] MEDS: LOSARTAN POTASSIUM 100 MG TABLET BY MOUTH (08:35)
--- NOTE | 2021-07-25 11:45 | PM.IMPN ---
Progress Note: A&P Assessment and Plan (1) Urinary tract infection: Qualifiers: Hematuria presence: without hematuria Urinary tract infection type: site unspecified Qualified Code(s): N39.0 - Urinary tract infection, site not specified Code(s): N39.0 - Urinary tract infection, site not specified Status: Acute Assessment and Plan: Continue IV Rocephin Urine culture with E coli sensitive to Rocephin continue same (2) Hyponatremia: Code(s): E87.1 - Hypo-osmolality and hyponatremia Status: Acute Assessment and Plan: DC IV fluid improved Most likely related to CHF Continues to improve (3) Hypokalemia: Code(s): E87.6 - Hypokalemia Status: Acute Assessment and Plan: Replaced monitor (4) Elevated troponin: Code(s): R77.8 - Other specified abnormalities of plasma proteins Status: Acute Assessment and Plan: Cardiology consult No evidence of AFib Patient has multiple PVCs Echo reviewed EF 66% grade 2 diastolic dysfunction moderate pulmonary hypertension. Concern for CHF Cardiology been consulted. Troponin elevation with flat trajectory (5) Weakness: Code(s): R53.1 - Weakness Status: Acute Assessment and Plan: PT/ OT to evaluate and treat patient for any further recommendations. Patient unable to manage herself at home as she lives alone She opts for going for rehab facility/nursing facility (6) Acute exacerbation of CHF (congestive heart failure): Code(s): I50.9 - Heart failure, unspecified Status: Acute Assessment and Plan: chest x-ray shows pulmonary edema Chest x-ray today with bilateral pleural effusion/hemothorax left greater than right Echo 07/22/2021 with EF 66% grade 2 diastolic dysfunction moderate pulmonary hypertension no significant valvular abnormality Acute on chronic diastolic heart failure Was on IV diuresis is been switched to oral Chest x-ray 07/24/2021 reviewed (7) Traumatic fracture of ribs of left side with pneumothorax with routine healing: Code(s): S22.42XD - Multiple fractures of ribs, left side, subsequent encounter for fracture with routine healing; S27.0XXD - Traumatic pneumothorax, subsequent encounter Status: Acute Assessment and Plan: General surgery following Repeat chest x-ray negative for pneumothorax Surgery has signed off (8) Fall: Qualifiers: Encounter type: subsequent encounter Qualified Code(s): W19.XXXD - Unspecified fall, subsequent encounter Code(s): W19.XXXA - Unspecified fall, initial encounter Status: Acute Assessment and Plan: Follow on admission. PT OT to evaluate Subjective Date/time seen: 07/25/21 11:45 Interval history: 86-year-old female who presented to the emergency room with complaints of fatigue and weakness that has worsened over the last few days. Patient states last evening she did fall in her bathroom, but did not hit her head. Patient states she does have chronic back pain and has been seen multiple times for that patient was found to have elevated troponin hyponatremia hypokalemia probable UTI was treated with antibiotic also x-ray showed severe degenerative joint disease probably causing back pain Echo was ordered per Cardiology for evaluation of elevated 07/23/2021 reports upper back pain. Breathing is okay. Bruises on the left chest wall. Denies any other complaints. Denies shortness of breath or chest pain 07/24/2021 complains of fatigue. No chest pain or shortness of breath. Back pain is controlled with pain medication. Afebrile. No cough 07/25/2021 no new complaints. Pain there but is controllable with pain medication. Denies any fever chills or cough. Review of Systems Review of Systems: All systems reviewed & are unremarkable except as noted in HPI and below (HPI) Exam Narrative: Alert and oriented x3 not in acute distress Chest decreased air entry bilatera
[2021-07-25] MEDS: ACETAMINOPHEN 325 MG TABLET 650 MG PO (13:24)
--- NOTE | 2021-07-25 13:48 | PM.DS ---
DS: Admitting Diagnosis Discharge Date 07/25/2021 Admitting Diagnosis Fall DS: Discharge Diagnosis Discharge Diagnosis (1) Urinary tract infection: Qualifiers: Hematuria presence: without hematuria Urinary tract infection type: site unspecified Qualified Code(s): N39.0 - Urinary tract infection, site not specified Code(s): N39.0 - Urinary tract infection, site not specified Status: Acute Assessment and Plan: Continue IV Rocephin Urine culture with E coli sensitive to Rocephin continue same Finish the course of IV antibiotics treatment for UTI during the hospital stay (2) Hyponatremia: Code(s): E87.1 - Hypo-osmolality and hyponatremia Status: Acute Assessment and Plan: DC IV fluid improved Most likely related to CHF Continues to improve (3) Hypokalemia: Code(s): E87.6 - Hypokalemia Status: Acute Assessment and Plan: Replaced monitor Since being on Lasix will put on scheduled potassium daily at home (4) Elevated troponin: Code(s): R77.8 - Other specified abnormalities of plasma proteins Status: Acute Assessment and Plan: Cardiology consult No evidence of AFib Patient has multiple PVCs Echo reviewed EF 66% grade 2 diastolic dysfunction moderate pulmonary hypertension. Concern for CHF Cardiology been consulted. Troponin elevation with flat trajectory Lasix started and switch to oral (5) Weakness: Code(s): R53.1 - Weakness Status: Acute Assessment and Plan: PT/ OT to evaluate and treat patient for any further recommendations. Patient unable to manage herself at home as she lives alone She opts for going for rehab facility/nursing facility Arrangements were made for rehab placement with the above care coordination (6) Acute exacerbation of CHF (congestive heart failure): Code(s): I50.9 - Heart failure, unspecified Status: Acute Assessment and Plan: chest x-ray shows pulmonary edema Chest x-ray today with bilateral pleural effusion/hemothorax left greater than right Echo 07/22/2021 with EF 66% grade 2 diastolic dysfunction moderate pulmonary hypertension no significant valvular abnormality Acute on chronic diastolic heart failure Was on IV diuresis is been switched to oral Chest x-ray 07/24/2021 reviewed (7) Traumatic fracture of ribs of left side with pneumothorax with routine healing: Code(s): S22.42XD - Multiple fractures of ribs, left side, subsequent encounter for fracture with routine healing; S27.0XXD - Traumatic pneumothorax, subsequent encounter Status: Acute Assessment and Plan: General surgery following Repeat chest x-ray negative for pneumothorax Surgery has signed off (8) Fall: Qualifiers: Encounter type: subsequent encounter Qualified Code(s): W19.XXXD - Unspecified fall, subsequent encounter Code(s): W19.XXXA - Unspecified fall, initial encounter Status: Acute Assessment and Plan: Follow on admission. PT OT to evaluate DS: Summary Hospital Course Hospital Course: See above Time Spent with Patient Time attestation: Total time spent providing and/or coordinating discharge services: 50 minutes Exam Narrative: Alert and oriented x3 not in acute distress Chest decreased air entry bilateral bilateral crackles Chest wall with bruise noted on left breast and left chest wall lever tender paraspinal area and upper thoracic area Abdomen nontender nondistended CVS S1 + S2 No edema cyanosis or clubbing DS: Data Data Completed and Pending Completed studies during hospitalization: Exam Type: CA echo doppler color flow Study Info Indications - new afib Complete two-dimensional, color flow and Doppler transthoracic echocardiogram is performed. Summary 1. Complete two-dimensional, color flow and Doppler transthoracic echocardiogram is performed. 2. Normal left ventricular siz
[2021-07-25 14:36] LABS: EDCOVIDSCREEN Negative (Negative)
== END 2021-07-25 14:43 | DRG 689 ==
LOC: ANHED 14:14 → ANHIMU 15:09
PROVIDERS: Internal Medicine Cardiovascular Disease; Nurse Practitioner Adult Health; Admitting Provider Internal Medicine; Emergency Provider Emergency Medicine; PCP Internal Medicine; Visit Provider Internal Medicine
DX: N39.0 Urinary tract infection, site not specified (principal); I50.33 Acute on chronic diastolic (congestive) heart failure; S22.42XA Multiple fractures of ribs, left side, initial encounter for closed fracture; E87.1 Hypo-osmolality and hyponatremia; E87.6 Hypokalemia; R77.8 Other specified abnormalities of plasma proteins; Z20.822 Contact with and (suspected) exposure to COVID-19; R53.1 Weakness; F41.9 Anxiety disorder, unspecified; E03.9 Hypothyroidism, unspecified; F32.9 Major depressive disorder, single episode, unspecified; I49.9 Cardiac arrhythmia, unspecified; R39.89 Other symptoms and signs involving the genitourinary system; G89.29 Other chronic pain; I11.0 Hypertensive heart disease with heart failure; M54.9 Dorsalgia, unspecified; R05.9 Cough, unspecified; W19.XXXA Unspecified fall, initial encounter; Z82.49 Family history of ischemic heart disease and other diseases of the circulatory system; Z79.899 Other long term (current) drug therapy; B96.20 Unspecified Escherichia coli [E. coli] as the cause of diseases classified elsewhere
CPT/HCPCS: 36415; 71046; 71100; 72131; 80053; 81001; 83735; 83880; 84132; 84484; 85025; 85610; 85652; 86140; 87077; 87086; 87088; 87186; 87426; 87502; 93005; 93306; 96361; 96365; 96366; 96372; 96375; 96376; 97110; 97116; 97161; 97165; 97530; 97535; 99285; A9270; C9803; G0378; J0696; J1170; J1650; J1940; J2405; J3480; J7030; J7040; U0003; U0005

== ENCOUNTER 2021-09-15 14:36 | Outpatient (NON) | payer MEDICARE, OTHER, SELFPAY ==
[2021-09-15 15:34] LABS: Anion Gap 1 mmol/L (8-16); Blood Urea Nitrogen 26 mg/dL (7-17); Calcium 8.7 mg/dL (8.4-10.2); Carbon Dioxide 31 mmol/L (22-30); Chloride 103 mmol/L (98-107); Estimated Glomerular Filt Rate 47; Glucose 102 mg/dL (65-110); Potassium 4.2 mmol/L (3.4-5.0); Sodium 135 mmol/L (137-145)
== END 2021-09-15 14:37 | disposition home or self-care (01) ==
LOC: ANHLAB 14:39
PROVIDERS: PCP Internal Medicine; Visit Provider Internal Medicine
DX: S22.42XD Multiple fractures of ribs, left side, subsequent encounter for fracture with routine healing (principal); M51.36 Other intervertebral disc degeneration, lumbar region; N39.0 Urinary tract infection, site not specified; I11.0 Hypertensive heart disease with heart failure; X58.XXXD Exposure to other specified factors, subsequent encounter
CPT/HCPCS: 36415; 80048

== ENCOUNTER 2021-09-28 16:25 | Outpatient (CLI) | payer MEDICARE, OTHER, SELFPAY ==
[2021-09-28 16:41] LABS: Hematocrit 35.4 % (37.0-47.0); Hemoglobin 11.4 g/dL (12.0-15.0)
[2021-09-28 16:59] LABS: Anion Gap 10 mmol/L (8-16); Blood Urea Nitrogen 31 mg/dL (7-17); Carbon Dioxide 28 mmol/L (22-30); Chloride 102 mmol/L (98-107); Estimated Glomerular Filt Rate 39; Glucose 101 mg/dL (65-110); Potassium 3.7 mmol/L (3.4-5.0); Sodium 140 mmol/L (137-145)
== END 2021-09-28 16:26 | disposition home or self-care (01) ==
LOC: ANHLAB 16:29
PROVIDERS: PCP Internal Medicine; Visit Provider Internal Medicine
DX: E03.9 Hypothyroidism, unspecified (principal); D64.9 Anemia, unspecified; I10 Essential (primary) hypertension
CPT/HCPCS: 36415; 80048; 84443; 85014; 85018

== ENCOUNTER 2022-03-24 10:32 | Outpatient (CLI) | payer MEDICARE, OTHER, SELFPAY ==
[2022-03-24 11:38] LABS: Appearance Urine Clear (Clear); Bilirubin Urine Negative (Negative); Blood Urine Trace-intact (Negative); Color Urine Yellow (Yellow); Glucose Urine UA Negative (Negative); Ketones Urine Negative (Negative); Leukocyte Esterase Ur 1+ LEU/UL (Negative); Nitrate Urine Negative (Negative); Protein Urine Negative (Negative); Urobilinogen Urine 0.2 mg/dL (<2.0)
[2022-03-24 12:00] LABS: RBC Urine 0-2 /hpf (0-2); Squamous Epithelial Cell Urine Rare /hpf (Few)
[2022-03-24 12:14] LABS: Add Urine Microscopic? YES
== END 2022-03-24 10:33 | disposition home or self-care (01) ==
PROVIDERS: PCP Internal Medicine; Visit Provider Nurse Practitioner
DX: R39.9 Unspecified symptoms and signs involving the genitourinary system (principal)
CPT/HCPCS: 81001

== ENCOUNTER 2022-04-02 16:32 | Outpatient (CLI) | payer MEDICARE, OTHER, SELFPAY ==
[2022-04-02 16:57] LABS: Appearance Urine Slightly Cloudy (Clear); Bilirubin Urine Negative (Negative); Blood Urine Trace-intact (Negative); Color Urine Yellow (Yellow); Glucose Urine UA Negative (Negative); Ketones Urine Negative (Negative); Leukocyte Esterase Ur 3+ LEU/UL (NEGATIVE); Nitrate Urine Negative (Negative); Protein Urine Negative (Negative); Urobilinogen Urine 0.2 mg/dL (<2.0); pH Urine 6.5 (5.0-9.0)
[2022-04-02 17:04] LABS: Mucus Urine Rare /lpf; WBC Urine >75 /hpf (0-3)
[2022-04-02 17:07] LABS: Add Urine Microscopic? YES
== END 2022-04-02 16:33 | disposition home or self-care (01) ==
PROVIDERS: PCP Internal Medicine; Visit Provider Nurse Practitioner Family
DX: R39.9 Unspecified symptoms and signs involving the genitourinary system (principal); R53.83 Other fatigue
CPT/HCPCS: 81001; 87086; 87147; 87181; 87186

== ENCOUNTER 2022-04-12 13:55 | Outpatient (CLI) | payer MEDICARE, OTHER, SELFPAY ==
[2022-04-12 15:42] LABS: Alanine Aminotransferase 27 U/L (6-35); Alkaline Phosphatase 73 U/L (38-126); Anion Gap 9 mmol/L (8-16); Aspartate Amino Transferase 31 U/L (14-36); Bilirubin,Total 0.5 mg/dL (0.2-1.3); Blood Urea Nitrogen 19 mg/dL (7-17); Calcium 8.8 mg/dL (8.4-10.2); Carbon Dioxide 27 mmol/L (22-30); Chloride 95 mmol/L (98-107); Estimated Glomerular Filt Rate 59; Glucose 123 mg/dL (65-110); Sodium 131 mmol/L (137-145)
== END 2022-04-12 13:56 | disposition home or self-care (01) ==
PROVIDERS: PCP Internal Medicine; Visit Provider Nurse Practitioner
DX: E03.9 Hypothyroidism, unspecified (principal); I10 Essential (primary) hypertension
CPT/HCPCS: 36415; 80053; 84443

== ENCOUNTER 2022-07-01 18:46 | Emergency (ER) | payer MEDICARE, OTHER, SELFPAY ==
--- NOTE | ~2022-07-01 | XR_ITS ---
AP and lateral views of the right femur Clinical History: Pain Findings: No acute fracture or dislocation is seen. Osseous alignment is anatomic. Visualized joint s paces are grossly preserved. Soft tissues are unremarkable. Impression: Unremarkable right femoral radiographs. Reviewed, dictated and finalized at location M. Impression: Unremarkable right femoral radiographs.
--- NOTE | ~2022-07-01 | XR_ITS ---
Clinical Indication: Left rib pain AP and lateral views of the chest: Comparison: 07/24/2021 Findings: Probable minimal left pleural effusion present. Right lung clear. Cardiomediastinal silhou ette is within normal limits. Multiple chronic right rib fracture deformities are noted, unchanged. Impression: Probable minimal left pleural effusion. Chronic right-sided rib fracture deformities, unchanged. Reviewed, dictated and finalized at location . Impression: Probable minimal left pleural effusion. Chronic right-sided rib fracture deformities, unchanged.
[2022-07-01 19:16] VITALS: BP 155/61; PULSE 92; RESP 20; TEMP 36.6; O2SAT 96
[2022-07-01 21:01] VITALS: BP 152/56; PULSE 90; RESP 18; O2SAT 95
--- NOTE | 2022-07-02 00:16 | ED.EXTPRO ---
HPI - Extremity Problem General Chief complaint: Extremity Problem,Nontraumatic Stated complaint: difficulty walking , rib pain Time Seen by Provider: 07/01/22 22:52 History of Present Illness HPI Narrative: This is an 87-year-old female, with past history of hypothyroidism, hypertension who presents to the emergency department, complaining of intermittent right leg pain and falls at home. The patient states she slipped on her carpet striking the right leg 4 days ago. Her pain was described as sore, rated 5/10 and intermittently improved. Today she noted recurrence of the pain which brings her here today. She denies head injury, loss of consciousness, chest pain or abdominal pain. Related Data Home Medications Medication Instructions Recorded Confirmed acetaminophen 500 mg tablet 500 mg PO QID PRN Pain 07/21/21 04/09/22 calcium 325 mg-vit D3 12.5 2 tablet PO TID 07/21/21 04/09/22 mcg-zinc 2.75 dv-wpfuop-dnzkzssmn tablet (Citracal-D3 Maximum Plus) calcium polycarbophil 625 mg 1,250 mg PO DAILY PRN Constipation 07/21/21 04/09/22 tablet (FiberCon) cyanocobalamin (vitamin B-12) 1,000 mcg PO DAILY 07/21/21 04/09/22 1,000 mcg tablet ibuprofen 200 mg tablet (Advil) 200 mg PO Q6H PRN Pain 07/21/21 04/09/22 magnesium 500 mg tablet 15 mg PO DAILY 07/21/21 04/09/22 cgzdkabz-iaaocnb-tknx-lutein tablet 1 tablet PO DAILY 07/21/21 04/09/22 cetirizine 10 mg tablet (Zyrtec) 10 mg PO DAILY PRN 04/02/22 04/09/22 cholecalciferol (vitamin D3) 50 50 mcg PO DAILY 04/02/22 04/09/22 mcg (2,000 unit) capsule fluticasone propionate 50 2 spray intranasal BID PRN 04/02/22 04/09/22 mcg/actuation nasal spray,suspension (Flonase Allergy Relief) vitamin E (dl, acetate) 180 mg 180 mg PO DAILY 04/02/22 04/09/22 (400 unit) capsule vitamin E 1,000 unit tablet 2 tablet PO DAILY 04/02/22 04/09/22 Allergies Allergy/AdvReac Type Severity Reaction Status Date / Time diazepam [facility] 07/01/22 19:21 neomycin Allergy Unknown Rash Verified 07/01/22 19:21 aspirin AdvReac Other Verified 07/01/22 19:21 Review of Systems Review of Systems: CONSTITUTIONAL: Denies fever, chills, or sweats. CARDIOVASCULAR: Denies chest pain, palpitations, or edema. RESPIRATORY: Denies cough or dyspnea. GASTROINTESTINAL: Denies abdominal pain, nausea, vomiting, or diarrhea. GENITOURINARY: Denies dysuria or hematuria. SKIN: Denies rash or itching. MUSCULOSKELETAL: Right thigh pain, left chest wall pain denies back pain, joint pain, or myalgia. NEUROLOGIC: Denies headache, numbness, dizziness, or weakness. PSYCHIATRIC: Denies anxiety or depression. PMFSH Past Medical History Medical History Anxiety Benign essential hypertension Body mass index (bmi) 34.0-34.9, adult Constipation, unspecified Hypothyroidism, unspecified Major depressive disorder, recurrent, unspecified Overweight Screening for breast cancer Screening for osteoporosis Family History Family History Father Acute myocardial infarction Social History Social History Smoking status: Never smoker Second hand tobacco smoke exposure: No Alcohol intake: current Alcohol use details: occasionally Substance use: never Substance use type: does not use Lack of Transportation: No Lack of Food: Never True Current Housing: I Have Housing Concerned About Future Housing: No Difficulty Paying Gas/Electric Bills: No Difficulty Paying for Meds: No Currently Unemployed: No Education: High School Diploma/GED Difficulty w/ Childcare or Family Care: No Spiritual care concerns: No Exam Narrative: GENERAL: Well-developed, well-nourished, and in no acute distress. HEAD: Normocephalic, atraumatic. EYES: PERRLA and EOMI. ENT: Nares clear, no rhinorrhea or epistaxis. Mucous membrane
[2022-07-02 03:05] LABS: Alanine Aminotransferase 26 U/L (6-35); Albumin Level 4.3 g/dL (3.5-5.1); Alkaline Phosphatase 93 U/L (38-126); Anion Gap 6 mmol/L (8-16); Aspartate Amino Transferase 27 U/L (14-36); Bilirubin,Total 0.7 mg/dL (0.2-1.3); Blood Urea Nitrogen 15 mg/dL (7-17); Carbon Dioxide 29 mmol/L (22-30); Chloride 100 mmol/L (98-107); Creatine Kinase 103 U/L (30-135); Estimated Glomerular Filt Rate > 60; Glucose 120 mg/dL (65-110); Potassium 3.6 mmol/L (3.4-5.0); Sodium 135 mmol/L (137-145)
[2022-07-02 03:31] VITALS: BP 151/62; PULSE 84; RESP 16; O2SAT 96
== END 2022-07-02 03:32 | disposition home or self-care (01) ==
PROVIDERS: Emergency Provider Preventive Medicine Aerospace Medicine; PCP Internal Medicine
DX: S76.911A Strain of unspecified muscles, fascia and tendons at thigh level, right thigh, initial encounter (principal); R07.89 Other chest pain; N39.0 Urinary tract infection, site not specified; I10 Essential (primary) hypertension; E03.9 Hypothyroidism, unspecified; E66.3 Overweight; Z68.34 Body mass index [BMI] 34.0-34.9, adult; F41.9 Anxiety disorder, unspecified; F33.9 Major depressive disorder, recurrent, unspecified; W18.09XA Striking against other object with subsequent fall, initial encounter
CPT/HCPCS: 36415; 71046; 73552; 80053; 82550; 96374; 99284; J0131

== ENCOUNTER 2022-07-12 12:44 | Outpatient (CLI) | payer MEDICARE, OTHER, SELFPAY ==
[2022-07-12 13:21] LABS: Appearance Urine Turbid (Clear); Bacteria Urine 4+ /hpf; Bilirubin Urine Negative (Negative); Blood Urine Negative (Negative); Color Urine Yellow (Yellow); Glucose Urine UA Negative (Negative); Ketones Urine Negative (Negative); Leukocyte Esterase Ur 2+ LEU/UL (NEGATIVE); Nitrate Urine Negative (Negative); Non Pathogenic Casts 0-2; Protein Urine Negative (Negative); RBC Urine 0-2 /hpf (0-2); Specific Grav Ur 1.014 (1.001-1.035); Squamous Epithelial Cell Urine None seen /hpf (Few); Urobilinogen Urine 0.2 mg/dL (<2.0); WBC Urine 21-50 /hpf (0-3); pH Urine 8.5 (5.0-9.0)
[2022-07-12 13:27] LABS: Add Urine Microscopic? YES
== END 2022-07-12 12:45 | disposition home or self-care (01) ==
PROVIDERS: PCP Nurse Practitioner Family; Visit Provider Nurse Practitioner Family
DX: R53.83 Other fatigue (principal); R39.9 Unspecified symptoms and signs involving the genitourinary system
CPT/HCPCS: 81001; 87077; 87086; 87186

== ENCOUNTER 2022-07-18 11:23 | Inpatient (IN) | payer MEDICARE, OTHER, SELFPAY ==
[2022-07-18] VITALS (10 sets, daily range): BP systolic 117–135; BP diastolic 41–95; PULSE 76–106; RESP 16–18; TEMP 36.2–37.3; O2SAT 94–97; BMI 30.6; BMI 31.0
--- NOTE | ~2022-07-18 | CT_ITS ---
EXAMINATION: CT brain wo con DATE: 07/18/2022 13:46 INDICATION: Status post fall. Head injury. Weakness. TECHNIQUE: Computed tomography (CT) of the head was performed without intravenous contrast. The dose- length product was 605.33 mGy-cm. Automated exposure control and iterative reconstruction technique w ere employed. COMPARISON: None FINDINGS: Brain parenchymal volume is normal for age. No ventriculomegaly or midline shift. Basilar c isterns are patent. No acute intracranial hemorrhage, infarction, mass or mass effect. There are scat tered mild periventricular and subcortical white matter changes, most likely related to small vessel ischemic disease (microangiopathy). Paranasal sinuses and mastoids are pneumatized. No depressed skul l fractures. There is intracranial atherosclerosis. IMPRESSION: 1. No acute intracranial abnormality. Reviewed, dictated and finalized at location A.
--- NOTE | ~2022-07-18 | XR_ITS ---
XR chest 2V 07/18/2022 12:41 Indication: Weakness and hypoxia. Nausea and vomiting. Procedure: 2 view chest Comparison: No prior studies for comparison. Findings: Heart size upper normal. No focal air space disease, pulmonary edema, pleural effusion or s uspected pneumothorax. There are multiple healed bilateral rib fractures. There are multiple thoracic and lumbar compression fractures, age indeterminate. No significant effusion or pneumothorax. No kylee ma. Impression: 1: No acute cardiopulmonary disease. Reviewed, dictated and finalized at location A. Impression: 1: No acute cardiopulmonary disease.
--- NOTE | ~2022-07-18 | CT_ITS ---
EXAMINATION: CT abdomen pelvis wo con DATE: 07/18/2022 13:47 INDICATION: Nausea, vomiting and left lower quadrant pain. TECHNIQUE: Computed tomography (CT) of the abdomen and pelvis was performed without intravenous contr ast. The dose-length product was 859.01 mGy-cm. Automated exposure control and iterative reconstructi on technique were employed. COMPARISON: None. FINDINGS: Bibasilar dependent atelectasis. Heart size normal. No significant pleural or pericardial e ffusion. Study limited by motion artifact. There are calcified granulomas of the liver and spleen. Th ere are cholecystectomy clips. The pancreas, right adrenal gland are unremarkable. There is left adre nal thickening, likely benign hyperplasia. There are low-density lesions in both kidneys, most likely benign cysts. There are dilated small bowel loops throughout the abdomen with air-fluid levels, cons istent with obstruction, transitioning at a left inguinal hernia. Colonic diverticulosis without evid ence for diverticulitis. There is osteoarthritis of the hips. There are multiple lower thoracic and l umbar compression fractures. There is an age-indeterminate T12 burst fracture. Prior examination is n ot available for direct comparison to assess for change. There are severe lower thoracic and lumbar s pondylosis. IMPRESSION: 1. Small bowel obstruction likely transitioning in the left inguinal hernia. 2: Multiple lower thoracic and lumbar vertebral fractures, age-indeterminate. Reviewed, dictated and finalized at location A.
--- NOTE | ~2022-07-18 | US_ITS ---
US renal BI 07/20/2022 08:42 Procedure: Realtime transabdominal ultrasound of the kidneys and bladder. Indication: Acute renal failure Comparison: No prior studies for comparison. Findings: Renal echotexture is normal bilaterally without hydronephrosis, contour deforming mass or r enal calculus. There are bilateral renal cyst measuring 2.2 cm on the right and 3.3 cm on the left. T he right kidney measures 10.6 cm and left kidney measures 10.6 cm. Bladder within normal limits. Impression: 1: Bilateral renal cysts. Reviewed, dictated and finalized at location L. Impression: 1: Bilateral renal cysts.
--- NOTE | 2022-07-18 11:37 | ECG_ITS ---
Measurements Intervals [place] Rate: 89 P: AR: 0 QRS: -9 QRSD: 113 T: 82 QT: 396 QTc: 483 Interpretive Statements SINUS RHYTHM FREQUENT ATRIAL PREMATURE COMPLEXES DELAYED PRECORDIAL R/S TRANSITION LEFT VENTRICULAR HYPERTROPHY WITH ST-T CHANGE NONSPECIFIC ST & T-WAVE ABNORMALITY- ANTEROLAT/INF LEADS BASELINE ARTIFACT- I, III, AVR, AVL, AVF, V4-V6 ABNORMAL ECG COMPARED TO ECG 07/18/2022 11:30:17 HEART RATE HAS DECREASED Electronically Signed On 07-18-2022 13:38:19 CDT by Alexsander Arreola D.O.
[2022-07-18 11:52] LABS: Basophils Absolute Auto 0.1 K/mm3 (0.0-0.1); Basophils Percent Auto 0.2 % (0.2-1.2); Eosinophils Percent Auto 0.1 % (0-4.4); Hematocrit 40.5 % (37.0-47.0); Hemoglobin 14.2 g/dL (12.0-15.0); Immature Granulocyte Absolute 0.11 K/mm3 (0.00-0.031); Immature Granulocyte Percent A 0.5 % (0-0.5); Lymphocytes Absolute Auto 0.78 K/mm3 (0.9-3.2); Lymphocytes Percent Auto 3.6 % (18.3-44.2); Mean Corpuscular HGB Conc 35.1 g/dl (32-36); Mean Corpuscular Hemoglobin 33.7 pg (26-34); Mean Corpuscular Volume 96.2 fl (80-100); Mean Platelet Volume 9.2 fl (7.4-10.4); Monocytes Absolute Auto 2.1 K/mm3 (0.1-0.6); Monocytes Percent Auto 9.6 % (2.6-8.5); Neutrophils Absolute Auto 18.7 K/mm3 (1.3-6.7); Platelet Count Result 453 k/mm3 (150-375); Red Blood Count 4.21 M/mm3 (4.2-5.4); White Blood Count 21.8 K/mm3 (4.5-10.0)
[2022-07-18 12:14] LABS: Hypochromasia 1+ (NORMAL); Platelet Estimate Increased (Adequate); Stomatocytes 1+ (NORMAL)
[2022-07-18 12:15] LABS: Schistocytes None Seen (NORMAL)
[2022-07-18 12:18] LABS: Add Urine Microscopic? YES; Appearance Urine Cloudy (Clear); Bacteria Urine None Seen /hpf; Bilirubin Urine 2+ (Negative); Blood Urine Negative (Negative); Color Urine Dark Yellow (Yellow); Glucose Urine UA Negative (Negative); Hyaline Casts Urine Present /lpf; Ketones Urine Trace mg/dL (Negative); Leukocyte Esterase Ur Trace LEU/UL (Negative); Nitrate Urine Negative (Negative); Non Pathogenic Casts >20; Protein Urine 1+ mg/dL (Negative); Specific Grav Ur 1.023 (1.001-1.035); Squamous Epithelial Cell Urine Occasional /hpf (Few); WBC Urine 0-5 /hpf
--- NOTE | 2022-07-18 12:23 | ED.GENADULT ---
HPI - General Adult General Chief complaint: Weakness <NAYANA Kyle Last Filed: 07/18/22 15:29> Stated complaint: weak/vomiting/falls <NAYANA Kyle Last Filed: 07/18/22 15:29> Time Seen by Provider: 07/18/22 11:41 <NAYANA Kyle Last Filed: 07/18/22 15:29> Source: patient, family and EMS <NAYANA Kyle Last Filed: 07/18/22 15:29> Mode of arrival: EMS <NAYANA Kyle Last Filed: 07/18/22 15:29> Limitations: no limitations <NAYANA Kyle Last Filed: 07/18/22 15:29> History of Present Illness HPI narrative: Patient is an 87 y/o female who presents to the ED via EMS with report of weakness, N/V, falls. Patient reports having nausea and vomiting for the last 2 days, unable to keep down any food or drink. She reported having intermittent left-sided abdominal pain, but denies any currently. She was constipated last week for several days and took mag citrate over the weekend. She did have a small bowel movement yesterday, but was unable to keep any further mag citrate down. She states she feels weak, lightheaded, dizzy. She had 2 falls this morning, unknown if she hit her head in the first fall. The second fall was witnessed by patient's daughter, who was able to catch her and lower her gently to the ground. Patient denies any pain or injury from the fall. She states she just feels weak. Denies any fever, urinary symptoms, chest pain, difficulty breathing, headache, cough or cold symptoms. Patient was noted to be 90% on room air by EMS. She was placed on 3 L nasal cannula. Patient denies home O2 use. She does not currently feel short of breath. Daughter at bedside reports patient was diagnosed with a UTI last week and treated with Keflex. <NAYANA Kyle Last Filed: 07/18/22 15:29> Related Data Home medications: Home Medications Medication Instructions Recorded Confirmed acetaminophen 500 mg tablet 500 mg PO QID PRN Pain (Scale 07/21/21 07/18/22 Score 1-3) calcium 325 mg-vit D3 12.5 2 tablet PO TID 07/21/21 07/18/22 mcg-zinc 2.75 kz-dhdakj-myubirszb tablet (Citracal-D3 Maximum Plus) calcium polycarbophil 625 mg 1,250 mg PO DAILY PRN Constipation 07/21/21 07/18/22 tablet (FiberCon) cyanocobalamin (vitamin B-12) 1,000 mcg PO DAILY 07/21/21 07/18/22 1,000 mcg tablet ibuprofen 200 mg tablet (Advil) 200 mg PO Q6H PRN Pain 07/21/21 07/18/22 ogmhvagu-tgrsvan-kpfk-lutein tablet 1 tablet PO DAILY 07/21/21 07/18/22 cetirizine 10 mg tablet (Zyrtec) 10 mg PO DAILY PRN allergies 04/02/22 07/18/22 cholecalciferol (vitamin D3) 50 50 mcg PO DAILY 04/02/22 07/12/22 mcg (2,000 unit) capsule fluticasone propionate 50 2 spray intranasal BID 04/02/22 07/18/22 mcg/actuation nasal spray,suspension (Flonase Allergy Relief) vitamin E 1,000 unit tablet 2 tablet PO DAILY 04/02/22 07/18/22 albuterol sulfate 90 mcg/actuation 2 puff inhalation Q4H PRN 07/18/22 07/18/22 aerosol inhaler Shortness Of Breath Or Wheezing bupropion HCl 300 mg 24 hr tablet, 300 mg PO DAILY 07/18/22 07/18/22 extended release buspirone 5 mg tablet 5 mg PO TID 07/18/22 07/18/22 diltiazem HCl 240 mg 240 mg PO DAILY 07/18/22 07/18/22 capsule,extended release 24 hr levothyroxine 100 mcg tablet 100 mcg PO DAILY 07/18/22 07/18/22 (Synthroid) lifitegrast 5 % eye drops in a 2 drp EACH EYE BID 07/18/22 07/18/22 dropperette (Xiidra) linaclotide 145 mcg capsule 145 mcg PO DAILY 05/14/23 05/14/23 (Linzess) losartan 100 mg tablet 100 mg PO DAILY 07/18/22 07/18/22 <Rebekah Ely PA-C - Last Filed: 07/18/22 15:29> Allergies/adverse reactions: Allergies Allergy/AdvReac Type Severity Reaction Status Date / Time diazepam Allergy Unknown Shakiness Verified 07/12/22 11:13 neomycin Allergy Unknown Rash Verified 07/12/22 11:13 aspirin AdvReac Other Verified 07/12/22 11:13 <Rebekah Ely,
--- NOTE | 2022-07-18 12:26 | ECG_ITS ---
Measurements Intervals [place] Rate: 102 P: -22 DE: 174 QRS: 62 QRSD: 102 T: -85 QT: 326 QTc: 426 Interpretive Statements SINUS TACHYCARDIA ATRIAL PREMATURE COMPLEXES BORDERLINE ST-T WAVE ABNORMALITY- DIFFUSE LEADS BASELINE ARTIFACT- I, II, III, AVR, AVL, AVF, V1-V6 BORDERLINE ECG COMPARED TO ECG 07/21/2021 14:15:36 SINUS TACHYCARDIA NOW PRESENT Electronically Signed On 07-18-2022 13:35:26 CDT by Alexsander Arreola D.O.
[2022-07-18 12:53] LABS: Alanine Aminotransferase 32 U/L (6-35); Albumin Level 4.7 g/dL (3.5-5.1); Alkaline Phosphatase 152 U/L (38-126); Aspartate Amino Transferase 43 U/L (14-36); Blood Urea Nitrogen 56 mg/dL (7-17); Calcium 9.5 mg/dL (8.4-10.2); Carbon Dioxide > 40 mmol/L (22-30); Chloride 65 mmol/L (98-107); Estimated Glomerular Filt Rate 13; Glucose 194 mg/dL (65-110); Lipase 183 U/L (23-300); Potassium 3.6 mmol/L (3.4-5.0); Sodium 127 mmol/L (137-145)
[2022-07-18] MEDS: SODIUM CHLORIDE 0.9% IV 1,000 ML 999 ML IV CONT ×2 (12:58→15:02)
[2022-07-18 13:03] LABS: Magnesium 3.7 mg/dL (1.6-2.3); Troponin I 0.043 ng/mL (0.000-0.034)
[2022-07-18 13:22] LABS: Lactic Acid Reflex 1.7 mmol/L (0.7-2.0)
[2022-07-18 13:24] LABS: Alveolar/Arterial O2 Gradient 14.6 mmHg; Base Excess ABG 20.7 mEq/l (+/-2.0); Carboxyhemoglobin 2.4 % THb (0-2.0); Fractional Inspired Oxygen 21 %; HCO3 ABG 46.1 mEq/l (22.0-26.0); Methemoglobin ABG 0.3 %THb (0-1.5); Oxygen Content ABG 17.8 %vol (16.0-22.0); Oxygen Saturation ABG 95.9 % (95.0-100.0); Oxyhemoglobin 91.7 % THb (90.0-100.0); PCO2 ABG 52.8 mmHg (35.0-45.0); PO2 ABG 71.9 mmHg (80.0-100.0); PO2 FiO2 Ratio Arterial Blood 3.42 %; Reduced Hemoglobin 5.6 %THb (0-5.0); Total Hemoglobin 13.8 g/dL (12.0-18.0)
[2022-07-18 13:25] LABS: Modified Allen's Test Pass; Site Drawn LEFT RADIAL; pH ABG 7.559 (7.350-7.450)
[2022-07-18] MEDS: SODIUM CHLORIDE 0.9% IV 1,000 ML 100 ML IV CONT (15:02)
--- NOTE | 2022-07-18 16:30 | PM.IMHP ---
H&P: HPI History of Present Illness Date/Time: 07/18/22 16:30 Chief Complaint: Weakness Narrative: this is an 87-year-old female patient who is very hard of hearing. The patient came to the emergency room via EMS with complaints of weakness, nausea vomiting a falls. Her nausea vomiting started approximately 2 days ago. The patient is unable to keep down any oral intake. She did have some intermittent left-sided abdominal pain but not currently. The patient took some magnesium citrate over the weekend because she thought she was constipated. She only had a small bowel movement yesterday. She was not even able to keep the magnesium citrate down. She feels be dizzy and lightheaded. The patient had 2 falls this morning. she is unaware she hit her head. The 2nd fall was witnessed by her daughter and she was able to catch her and lower to the ground. She denies any fever or urinary symptoms. She does not typically wear oxygen at home. However she is found to be 90% on room matter by EMS and she was placed on oxygen at 2 L per nasal cannula. She does not feel short of breath. The patient stated she was diagnosed with UTI and was given Keflex last week. Her white count is 21.8. ABGs were performed pH 7.559, pCO2 62.8. PO2 71.9. Sodium 127, chloride 65 carbon dioxide greater than 40. BUN 56 creatinine 3.40. Last known creatinine was on 07/02/2022 1 is 0.70. GFR is 13. Glucose is 194. Lactic is 1.7. Magnesium is 3.7. Her troponin was 0.043, 0.030, and 0.032. The patient does not appear to have UTI at this time. Abdominal pelvis CT was read as the following . Small bowel obstruction likely transitioning in the left inguinal hernia. 2: Multiple lower thoracic and lumbar vertebral fractures, age-indeterminate. head CT was read as no acute intracranial abnormality. Chest x-ray was read as no acute cardiopulmonary disease. Surgery has been consulted the patient was started on IV fluids. The patient is being admitted to inpatient status on the date of service of 07/18/2022 Review of Systems Review of Systems: All systems reviewed & are unremarkable except as noted in HPI and below Constitutional: Constitutional: Reports as per HPI and Reports no additional constitutional complaints Eyes: Eyes: Reports as per HPI and Reports no additional eye complaints ENT: Reports system reviewed and no additional complaints, except as documented and Reports Normal hearing present Cardiovascular: Cardiovascular: Reports no additional cardiovascular complaints Respiratory: Respiratory: Reports no additional respiratory complaints and Reports no additional respiratory complaints Gastrointestinal: Gastrointestinal: Reports as per HPI and Reports no additional gastrointestinal complaints Musculoskeletal: Musculoskeletal: Reports no additional musculoskeletal complaints Integumentary/Breasts: Skin/Breast: Reports system reviewed and no additional complaints, except as docu and Reports as per HPI Neurologic: Reports system reviewed and no additional complaints, except as documented, Reports as per HPI and Reports Normal hearing present Psychiatric: Psychiatric: Reports no additional psychiatric complaints and Reports as per HPI Endocrine: Endocrine: Reports no additional endocrine complaints Hematologic/Lymphatic: Hematologic/Lymphatic: Reports no additional hematologic/lymphatic complaints Allergic/Immunologic: Allergic/Immunologic: Reports no additional allergic/immunologic complaints [facility] Past Medical History Medical History (Updated 07/18/22 @ 20:56 by Tamiko Nava NP) Anxiety Benign essential hypertension Body mass index (bmi) 34.0-34.9, adult Constipation, unspecified History of cancer of ear History of DVT (deep vein thrombosis) Hypothyroidism, unspecified Major depressive disorder, recurrent, unspecified Overweight Screening for breast cancer Screening for osteoporosis Surgical History Surgical History (Updated
--- NOTE | 2022-07-18 17:11 | ADMGEN ---
This patient, Edith Davalos, was admitted to IMU Room 204-01 at 1710. Patient/family oriented to hospital policies and general routines including ID bracelet, bed and alarms, visiting hours, pain management, procedures, bathroom and other care routines, personal items, smoking policy, room service/diet, and visiting hours. Information on how to activate the Rapid Response Team has been discussed. Patient/Family are encouraged to report perceived risks to care and to ask questions if they do not understand what they are told or what they should do.
[2022-07-18 20:13] LABS: Troponin I 0.032 ng/mL (0.000-0.034)
[2022-07-18 21:20] LABS: Blood Urea Nitrogen 52 mg/dL (7-17); Calcium 8.4 mg/dL (8.4-10.2); Carbon Dioxide > 40 mmol/L (22-30); Chloride 76 mmol/L (98-107); Estimated Glomerular Filt Rate 19; Glucose 131 mg/dL (65-110); Sodium 130 mmol/L (137-145)
[2022-07-19] VITALS (26 sets, daily range): BP systolic 120–171; BP diastolic 46–84; PULSE 80–113; RESP 14–22; TEMP 36.1–36.9; O2SAT 93–99
[2022-07-19 00:27] LABS: Creatinine Urine 110.9 mg/dL
[2022-07-19 00:28] LABS: Sodium Urine Random 27 meq/L
[2022-07-19] MEDS: SODIUM CHLORIDE 0.9% IV 1,000 ML 100 ML IV CONT ×2 (00:56→11:12)
[2022-07-19] MEDS: KCL 20 MEQ/SW 100 ML 100 ML 50 MEQ IVPB (00:58)
[2022-07-19] MEDS: ONDANSETRON INJ 4 MG/2 ML VIAL IV PUSH (02:27)
[2022-07-19 04:34] LABS: Basophils Percent Auto 0.1 % (0.2-1.2); Eosinophils Percent Auto 0.1 % (0-4.4); Hematocrit 36.6 % (37.0-47.0); Hemoglobin 12.5 g/dL (12.0-15.0); Immature Granulocyte Absolute 0.09 K/mm3 (0.00-0.031); Immature Granulocyte Percent A 0.4 % (0-0.5); Lymphocytes Absolute Auto 0.71 K/mm3 (0.9-3.2); Lymphocytes Percent Auto 3.3 % (18.3-44.2); Mean Corpuscular HGB Conc 34.2 g/dl (32-36); Mean Corpuscular Hemoglobin 33.2 pg (26-34); Mean Corpuscular Volume 97.3 fl (80-100); Mean Platelet Volume 9.5 fl (7.4-10.4); Monocytes Absolute Auto 2.2 K/mm3 (0.1-0.6); Monocytes Percent Auto 9.9 % (2.6-8.5); Neutrophils Absolute Auto 18.7 K/mm3 (1.3-6.7); Neutrophils Percent Auto 86.2 % (45.5-73.1); Platelet Count Result 372 k/mm3 (150-375); Red Blood Count 3.76 M/mm3 (4.2-5.4); Red Cell Distribution Width 12.9 % (11.5-14.5); White Blood Count 21.7 K/mm3 (4.5-10.0)
[2022-07-19 04:44] LABS: Lactic Acid Reflex 0.8 mmol/L (0.7-2.0)
[2022-07-19 05:14] LABS: Alanine Aminotransferase 35 U/L (6-35); Albumin Level 3.9 g/dL (3.5-5.1); Alkaline Phosphatase 123 U/L (38-126); Aspartate Amino Transferase 46 U/L (14-36); Blood Urea Nitrogen 44 mg/dL (7-17); Calcium 8.3 mg/dL (8.4-10.2); Carbon Dioxide > 40 mmol/L (22-30); Chloride 81 mmol/L (98-107); Estimated Glomerular Filt Rate 36; Glucose 137 mg/dL (65-110); Potassium 2.8 mmol/L (3.4-5.0); Sodium 131 mmol/L (137-145)
[2022-07-19 05:19] LABS: Thyroid Stimulating Hormone Reflex 0.285 uIU/mL (0.465-4.68)
[2022-07-19] MEDS: LEVOTHYROXINE SODIUM INJ 100 MCG/5 ML VIAL 50 MCG IV PUSH (05:31)
[2022-07-19] MEDS: POTASSIUM CHLORIDE INJ 40 MEQ in SODIUM CHLORIDE 0.9% IV 500 ML 130 MEQ IVPB ×2 (06:07→11:11)
[2022-07-19 06:13] LABS: Free T4 Free Thyroxine Reflex 1.38 ng/dL (0.78-2.19)
[2022-07-19 07:18] LABS: Total Triiodothyronine (T3) 0.88 NG/ML (0.97-1.69)
[2022-07-19] MEDS: FLUTICASONE PROPIONATE 0.05% NA SPR 16 GM BTL (*BKC) 2 SPRAY NASAL ×2 (09:08→18:41)
--- NOTE | 2022-07-19 10:46 | PM.CNGS ---
Assessment and Plan Assessment and plan (1) Incarcerated left inguinal hernia: Code(s): K40.30 - Unilateral inguinal hernia, with obstruction, without gangrene, not specified as recurrent Status: Acute Assessment and Plan: Left inguinal hernia with incarcerated small bowel causing a small bowel obstruction. Unable to reduce the hernia on exam. Dr. Wynne has also evaluated the patient and unable to reduce the hernia. Discussed treatment options with the patient. Dr. Wynne recommends proceeding with an incarcerated left inguinal hernia repair, possible bowel resection. Description of the procedure, risks, benefits, and alternatives were discussed with the patient in detail. Discussed the possibility of bowel ischemia and possible bowel resection. All questions answered and she agrees to proceed. Will keep her NPO with IV fluids and proceed to the OR later today. (2) Small bowel obstruction: Code(s): K56.609 - Unspecified intestinal obstruction, unspecified as to partial versus complete obstruction Status: Acute Assessment and Plan: Secondary to the incarcerated left inguinal hernia. See plan above. (3) Acute renal failure: Qualifiers: Acute renal failure type: unspecified Qualified Code(s): N17.9 - Acute kidney failure, unspecified Code(s): N17.9 - Acute kidney failure, unspecified Status: Acute Assessment and Plan: Improving with IV fluid hydration. Renal US pending. (4) Elevated troponin: Code(s): R77.8 - Other specified abnormalities of plasma proteins Status: Acute Assessment and Plan: First troponin slightly elevated with repeat troponin negative x 2. No chest pain or shortness of breath. Could be related to her renal failure. (5) Metabolic alkalosis: Code(s): E87.3 - Alkalosis Status: Acute (6) Acute respiratory failure with hypoxia: Code(s): J96.01 - Acute respiratory failure with hypoxia Status: Acute Assessment and Plan: Chest x-ray negative. Required supplemental oxygen for mild hypoxia. She is now on 2 liters oxygen NC. No respiratory complaints or respiratory distress. (7) Benign essential hypertension: Code(s): I10 - Essential (primary) hypertension Status: Acute Plan I have discussed the patient's case and plan of care with Dr. Wynne. Thank you for allowing us to see the patient in consultation and we will continue to follow along with you. History of Present Illness Consult details Consult date: 07/19/22 Reason for consult: other (Left inguinal hernia with small bowel obstruction) Requesting physician: Rebekah Ely PA-C Narrative: This is an 87-year-old woman who presented to the emergency department with complaints of weakness, nausea and vomiting, and falls. She reports nausea and vomiting for the last 2 days. She has not been able to keep any food or drink down. She also reports left-sided abdominal pain at home that was mild and improved since being admitted. She has additionally been constipated over the past week reportedly taking Mag citrate at home over the weekend. She reports her last bowel movement was last Tuesday, 6 days ago. She began to feel weak, lightheaded, and dizzy yesterday. She had 2 ground level falls at home yesterday morning. She was brought into the ER for further evaluation. She was hypoxic in the ER and placed on 3 L nasal cannula. Labs were significant for white blood cell count of 21,800 with neutrophil predominance, sodium 127, choroid 65, serum bicarb greater than 40, BUN 56, creatinine 3.4, lactic acid 1.7. Troponin 0.043 with subsequent troponins negative x 2. Head CT negative. Chest x-ray negative. CT scan of the abdomen and pelvis showed a small bowel obstruction likely transitioning in the left inguinal hernia. Incidentally noted was multiple lower thoracic and lumbar vertebral fractures age indeterminate. She was admitted to the hospital
--- NOTE | 2022-07-19 12:17 | WPDANESEPPF ---
Anes - Initial Pre Proc Eval Procedure: Operation Date: 07/19/22 14:30 Proposed Procedures p Incarcerated Left Inguinal Hernia Repair; Possible Bowel Resection - Suzy Wynne MD Date/Time: 07/19/22 12:17 Surgeon: Martin Casas MD Pre Op Diagnosis: sbo,incarcerated l inguinal hernia,arf,met alkalos Patient Data Age: 87 Gender: F Height: 1.5 m Weight: 69.7 kg Last Vital Signs Temp 36.6 C 07/19/22 08:00 Pulse 92 07/19/22 08:00 Resp 16 07/19/22 08:00 BP 148/71 H 07/19/22 08:00 Pulse Ox 95 07/19/22 10:46 O2 Del Method Nasal Cannula 07/19/22 10:46 O2 Flow Rate 3 07/19/22 10:46 FiO2 32 07/19/22 10:46 Allergies Allergy/AdvReac Type Severity Reaction Status Date / Time diazepam Allergy Unknown Shakiness Verified 07/12/22 11:13 neomycin Allergy Unknown Rash Verified 07/12/22 11:13 aspirin AdvReac Other Verified 07/12/22 11:13 Home Medications Medication Instructions Recorded Confirmed Type acetaminophen 500 mg tablet 500 mg PO QID PRN Pain (Scale 07/21/21 07/18/22 History Score 1-3) calcium 325 mg-vit D3 12.5 2 tablet PO TID 07/21/21 07/18/22 History mcg-zinc 2.75 fx-kqfvrc-bkvwvlzoe tablet (Citracal-D3 Maximum Plus) calcium polycarbophil 625 mg 1,250 mg PO DAILY PRN Constipation 07/21/21 07/18/22 History tablet (FiberCon) cyanocobalamin (vitamin B-12) 1,000 mcg PO DAILY 07/21/21 07/18/22 History 1,000 mcg tablet cekhstqo-lavyant-qklq-lutein tablet 1 tablet PO DAILY 07/21/21 07/18/22 History paroxetine HCl 20 mg tablet 20 mg PO DAILY #90 tabs 03/10/22 07/18/22 Rx cetirizine 10 mg tablet (Zyrtec) 10 mg PO DAILY PRN allergies 04/02/22 07/18/22 History cholecalciferol (vitamin D3) 50 50 mcg PO DAILY 04/02/22 07/18/22 History mcg (2,000 unit) capsule fluticasone propionate 50 2 spray intranasal BID 04/02/22 07/18/22 History mcg/actuation nasal spray,suspension (Flonase Allergy Relief) vitamin E 1,000 unit tablet 2 tablet PO DAILY 04/02/22 07/18/22 History lidocaine 5 % topical patch 1 patch topical DAILY #30 ea 07/12/22 07/18/22 Rx magnesium oxide 500 mg tablet 500 mg PO DAILY #1 tablet 07/12/22 07/18/22 Rx albuterol sulfate 90 mcg/actuation 2 puff inhalation Q4H PRN 07/18/22 07/18/22 History aerosol inhaler Shortness Of Breath Or Wheezing bupropion HCl 300 mg 24 hr tablet, 300 mg PO DAILY 07/18/22 07/18/22 History extended release diltiazem HCl 240 mg 240 mg PO DAILY 07/18/22 07/18/22 History capsule,extended release 24 hr levothyroxine 100 mcg tablet 100 mcg PO DAILY 07/18/22 07/18/22 History (Synthroid) lifitegrast 5 % eye drops in a 2 drp EACH EYE BID 07/18/22 07/18/22 History dropperette (Xiidra) linaclotide 145 mcg capsule 145 mcg PO DAILY 07/18/22 07/18/22 History (Linzess) losartan 100 mg tablet 100 mg PO DAILY 07/18/22 07/18/22 History buspirone 5 mg tablet 5 mg PO TID #90 tabs 07/19/22 07/20/22 Rx ciprofloxacin HCl 500 mg tablet 500 mg PO Q12HR 7 days #14 tabs 07/22/22 Rx metronidazole 250 mg tablet 500 mg PO Q8HR 7 days #42 tabs 07/22/22 Rx pantoprazole 40 mg tablet,delayed 40 mg PO QAM 1 month #30 tabs 07/22/22 Rx release Laboratory Tests 07/18/22 07/18/22 07/18/22 11:45 11:59 13:03 WBC RBC Hgb Hct MCV MCH MCHC RDW Plt Count MPV Immature Gran % (Auto) Neut % (Auto) Lymph % (Auto) [place] % (Auto) Eos % (Auto) Baso % (Auto) Lymph # (Auto) [place] # (Auto) Eos # (Auto) Baso # (Auto) Abs Immat Gran (auto) Absolute Neuts (auto) Absolute Nucleated RBC Nucleated RBC % Puncture Site ABG pH ABG pCO2 ABG pO2 ABG PO2/FiO2 Ratio ABG HCO3 ABG O2 Satu
--- NOTE | 2022-07-19 14:18 | PM.IMPN ---
Progress Note: A&P Assessment and Plan (1) Incarcerated left inguinal hernia: Code(s): K40.30 - Unilateral inguinal hernia, with obstruction, without gangrene, not specified as recurrent Status: Acute (2) Leukocytosis: Code(s): D72.829 - Elevated white blood cell count, unspecified Status: Acute Plan # incarcerated left inguinal hernia # small-bowel obstruction - appreciate Dr. Wynne surgery consultation: Recommendation for intraoperative repair of left inguinal hernia and possible bowel surgery - NPO -IV antibiotics: Zosyn -IV fluids: NS at 100 cc/hour -antiemetic: P.r.n. Zofran -pain control: P.r.n. lidocaine patch -repeat labs in a.m. -leukocytosis WBC 33730, concern for possible ischemic bowel, antibiotics recommended by surgical team # acute kidney injury -likely prerenal from small-bowel obstruction and poor p.o. intake -renal ultrasound ordered -Cr 2.4 to 1.4 -ur Cr 110.9, Ur Na 27, Ur osm pending # electrolyte imbalances -potassium 2.8, repleting as needed -Na 131 -bicarb >40 # chronic conditions -anxiety: buspar, bupropion, Paxil -hypothyroidism: Levothyroxine -essential hypertension: P.r.n. hydralazine. At home on hydrochlorothiazide, diltiazem, losartan -afib: diltiazem -allergies: Zyrtec -vitamins: vitamin E, multivitamin, b12, calcium, fiber, mag ox, vit d -IBS?: linzess Diet: NPO DVT prophylaxis: post op will start heparin Code status: DNR Disposition: Surgery today Subjective Date/time seen: 07/19/22 14:18 Interval history: Patient seen examined. Patient admitted yesterday with incarcerated left inguina hernia causing small-bowel obstruction. Hernia was unable to be reduced. Plan for operative intervention with Dr. Wynne with incarcerated left inguinal hernia repair and possible bowel resection. Patient endorses nausea and vomiting and left-sided abdominal pain. She denies fever and chills. Will keep NPO IV fluids. Patient started on IV antibiotics for possible bowel ischemia. Repleting potassium. Review of Systems Review of Systems: 10 point ROS complete, negative other than what is specified in HPI. Exam Narrative: - GENERAL: Pleasant elderly woman in no acute distress. - EYES: EOMI. Anicteric. - HENT: Moist mucous membranes. - LUNGS: Clear to auscultation bilaterally, no wheezing, rhonchi, or rales. - CARDIOVASCULAR: Regular rate and rhythm. No murmur. No JVD. - ABDOMEN: Soft, left inguinal hernia, hypoactive bowels - EXTREMITIES: No edema. Peripheral pulses 2+. Non-tender. - NEUROLOGIC: No focal neurological deficits. CN II-XII grossly intact. - PSYCHIATRIC: Awake, Alert and oriented x 3. Appropriate mood and affect. - SKIN: No rashes or lesions. Warm. - LYMPH: No cervical lymphadenopathy. Objective Data Vital Signs Vital Signs: Vital Signs - 24 hr 07/18/22 15:03 07/18/22 16:22 07/18/22 17:32 Temperature 36.2 C L Pulse Rate 90 91 91 Respiratory Rate 16 18 18 Blood Pressure 117/95 H 127/81 126/41 L Pulse Oximetry 94 97 95 Oxygen Delivery Oxygen Flow Rate Fraction of Inspired Oxygen 07/18/22 18:00 07/18/22 18:00 07/18/22 20:00 Temperature 36.4 C Pulse Rate 93 91 Respiratory Rate 16 Blood Pressure 127/44 L Pulse Oximetry 97 94 Oxygen Delivery Nasal Cannula Oxygen Flow Rate 3 Fraction of Inspired Oxygen 07/18/22 20:00 07/18/22 20:00 07/18/22 22:00 Temperature Pulse Rate 91 106 H 97 Respiratory Rate 16 Blood Pressure Pulse Oximetry 94 Oxygen Delivery Nasal Cannula Oxygen Flow Rate 3 Fraction of Inspired Oxygen 07/18/22 23:28 07/18/22 23:32 07/19/22 00:00 Temperature 37.3 C Pulse Rate 92 92 94 Respiratory Rate 16 16 Blood Pressure 135/69 Pulse Oximetry 94 94 Oxygen Delivery Nasal Cannula Oxygen Flow Rate 3 Fraction of Inspired Oxygen 07/19/22 01:45 07/19/22 03:33 07/19/22 03:47 Temperature 36.4 C Pulse Rate 93 113 H 113 H Respiratory Rate 2
[2022-07-19] MEDS: PIPERACILLN/TAZ 3.375GM/NS50ML 3.375 GM/50 ML BAG IVPB ×2 (14:41→20:28)
[2022-07-19] MEDS: LACTATED RINGERS 1,000 ML 30 ML IV CONT (14:41)
[2022-07-19] MEDS: ACETAMINOPHEN 500 MG TABLET 1000 MG PO (14:44)
--- NOTE | 2022-07-19 15:02 | WPDHPUPDATE1 ---
History and Physical Update Update Date/Time: 07/19/22 15:02 History and Physical has been reviewed, including an updated exam of the patient. There are NO changes in the patient's condition. Risks, benefits, and alternatives have been discussed and questions answered. Patient agrees to proceed with procedure.
[2022-07-19] MEDS: BUPivacaine HCL 0.5% PF 30 ML VIAL 20 ML INFILTRATE (16:40)
[2022-07-19] MEDS: LIDO 1%/EPINEPHRINE 1:100,000 50 ML VIAL 20 ML INFILTRATE (16:40)
[2022-07-19] MEDS: fentaNYL CITRATE INJ (*CRX) 100 MCG/2 ML VIAL 25 MCG IV PUSH ×3 (17:33→17:45)
--- NOTE | 2022-07-19 19:58 | PM.OP ---
Procedure Note - Brief Procedure Note - Brief Date of procedure: 07/19/22 SBO, Incarcerated left inguinal hernia Post-op diagnosis: Other (SBO, Incarcerated left femoral hernia) Procedure performed: Open incarcerated left femoral hernia repair with Perfix lightweight mesh plug Surgeon: Forrest Srinivasan MD [employer] Supervisor: Kelly DICKERSON Anesthesia: GETA Findings: Incarcerated left femoral hernia containing loop of viable small bowel. Implants: Large lightweight Perfix mesh plug Estimated blood loss (mL): 10 Urine output (mL): -275.0 Drains: No Packing: No Pathology: None sent Complications: No immediate complications Condition: Stable Disposition: PACU
[2022-07-20] MEDS: PIPERACILLN/TAZ 3.375GM/NS50ML 3.375 GM/50 ML BAG IVPB ×4 (02:26→23:16)
[2022-07-20 04:00] VITALS: BP 149/46; PULSE 96; RESP 16; TEMP 36.6; O2SAT 97
[2022-07-20] MEDS: SODIUM CHLORIDE 0.9% IV 1,000 ML 100 ML IV CONT ×2 (04:08→19:19)
[2022-07-20 04:36] LABS: Hemoglobin 10.9 g/dL (12.0-15.0); Mean Corpuscular Hemoglobin 33.4 pg (26-34); Mean Corpuscular Volume 101.2 fl (80-100); Mean Platelet Volume 9.3 fl (7.4-10.4); Platelet Count Result 307 k/mm3 (150-375); Red Blood Count 3.26 M/mm3 (4.2-5.4); Red Cell Distribution Width 13.1 % (11.5-14.5); White Blood Count 17.3 K/mm3 (4.5-10.0)
[2022-07-20 05:08] LABS: Anion Gap 4 mmol/L (8-16); Blood Urea Nitrogen 23 mg/dL (7-17); Calcium 7.8 mg/dL (8.4-10.2); Carbon Dioxide 34 mmol/L (22-30); Chloride 97 mmol/L (98-107); Estimated Glomerular Filt Rate > 60; Glucose 103 mg/dL (65-110); Sodium 135 mmol/L (137-145)
--- NOTE | 2022-07-20 05:19 | PC.NURSE ---
Patient received from IMU via bed, sitter at bedside. Report received from PRANAY Roy.
--- NOTE | 2022-07-20 05:33 | PC.NURSE ---
This patient, Edith Davalos, was transferred to [[id number]] on 07/20/22 at 0520. Personal belongings sent with patient. Report given to [PRANAY Pollock]. Appropriate documentation sent with patient.
[2022-07-20] MEDS: LEVOTHYROXINE SODIUM INJ 100 MCG/5 ML VIAL 50 MCG IV PUSH (06:05)
--- NOTE | 2022-07-20 09:06 | W.PM.PROC2 ---
Procedure Note - Detailed Date of Procedure 07/20/22 Pre-op Diagnosis Small-bowel obstruction secondary to incarcerated left hernia Post-op Diagnosis Same Procedure Performed Open left femoral hernia repair with lightweight PerFix mesh plug. Surgeon Forrest Srinivasan MD Double Needle Stitcher TUAN Blackman Anesthesia General Indications Patient is 87-year-old female who presented with signs of a small-bowel obstruction. CT scan abdomen pelvis showed a loop of small bowel incarcerated within the left femoral hernia. No evidence of perforation or necrosis the small bowel was seen. Findings Loop of small bowel incarcerated within the left femoral hernia sac. Defect was approximately 1.5cm. The small bowel was completely viable. Description of Procedure After informed consent was obtained patient brought to the operating room she is placed in supine position and then general endotracheal anesthesia was administered. An orogastric tube was placed to decompress the stomach and a Chen catheter placed to decompress the bladder. A time-out was then performed correctly identifying the patient as well as procedure to be performed verified site marking. She was already on scheduled IV antibiotics. I then made an oblique incision left groin region over the area the incarcerated hernia. Dissection was then carried down through the subcu tissues electrocautery until the hernia sac was encountered. I dissected the subcutaneous tissues away from the hernia sac and followed it all the way down to the neck of the hernia sac coming out from underneath the inguinal ligament. There was a tight constriction this area and so then I placed a right angle clamp underneath the inguinal ligament on the superior part of the hernia sac and then split the fibers of the inguinal ligament for about 1cm to release the constriction. At this point the hernia sac was released I then open the hernia sac very carefully with a combination of cautery scissor dissection. I found within the hernia sac a single loop of small bowel which was viable and had some vascular congestion but there was no evidence of any necrosis of the bowel. The loop of small bowel was then reduced back into the abdomen. I then closed the hernia sac utilizing a running 2 0 Vicryl suture in a locking fashion. The hernia sac was then reduced back into the abdomen through the defect in the inguinal ligament. I then proceeded to narrow down the opening at the inguinal ligament with some interrupted 0 Ethibond sutures. I then chose a large piece of lightweight PerFix mesh plug and placed it in to the defect. It was then secured in place at 3 positions utilizing interrupted 0 Ethibond sutures. Laterally where the mesh would be near the femoral artery and vein I did not fixate the mesh. I then proceeded irrigate out the incision copious sterile saline solution. Hemostasis was excellent. I then closed the subcutaneous tissues over the remaining portion of the exposed mesh with a single 2-0 Vicryl suture placed in a figure-eight fashion. At this point all the mesh was completely covered with vascularized tissue and no longer exposed. I proceeded closed utilizing interrupted 2 0 Vicryl sutures in the subcutaneous tissues. This then followed by layer of interrupted 3-0 Vicryl sutures. Skin edges were then proximal utilizing a running subcuticular 4 Monocryl suture. The incision was then cleaned and then skin glue was applied for final dressing. The patient tolerated the procedure well no complications. All sponges, needles, and instrument counts were correct at the end procedure. EBL was __20_cc. The patient was awakened and taken to recovery in stable and satisfactory condition. Implants Large lightweight PerFix mesh plug. Estimated Blood Loss 20 Urine Output -275.0 Drains No Packing No Pathology None sent Complications No immediate complications Condition Stable Disposition PACU [facility] Billing
[2022-07-20 10:10] VITALS: O2SAT 97
[2022-07-20] MEDS: POTASSIUM CHLORIDE 20 MEQ PACKET (FOR LIQUID) 40 MEQ PO ×2 (10:10→18:03)
[2022-07-20] MEDS: LIDOCAINE 5% PATCH 1 PATCH TOPICAL (10:17)
[2022-07-20] MEDS: FLUTICASONE PROPIONATE 0.05% NA SPR 16 GM BTL (*BKC) 2 SPRAY NASAL ×2 (10:17→18:03)
[2022-07-20] MEDS: PANTOPRAZOLE 40 MG TABLET PO (10:18)
[2022-07-20 10:40] VITALS: O2SAT 97
--- NOTE | 2022-07-20 12:33 | PM.IMPN ---
Progress Note: A&P Assessment and Plan (1) Incarcerated left inguinal hernia: Code(s): K40.30 - Unilateral inguinal hernia, with obstruction, without gangrene, not specified as recurrent Status: Acute (2) Leukocytosis: Code(s): D72.829 - Elevated white blood cell count, unspecified Status: Acute Plan 87 years old F admitted with incarcerated left inguina hernia causing small-bowel obstruction.?Surgery was consulted, s/p Open left femoral hernia repair with lightweight PerFix mesh plugPOD#1 1)SBO 2/2 incarcerated let inguinal hernia s/p Open left femoral hernia repair with lightweight PerFix mesh plugPOD#1 Appreciate surgery help Post operative care as surgery Clear liquid diet Supplement potassium C/w IV fluids c/w Zosyn Monitor leucocytosis 2)H/o Hypothyroidism c/w levotyroxine 3)DVT ppx:Hep SQ 3)Code:DNR 4)Dispo:pending improvement Time Spent With Patient Time with patient: 15 - 25 minutes Subjective Date/time seen: 07/20/22 12:33 Interval history: no acute events overnight Awake, alert this morning POD#1 Review of Systems Review of Systems: All systems reviewed & are unremarkable except as noted in HPI and below Exam Narrative: - GENERAL: Pleasant elderly woman in no acute distress. - EYES: EOMI. Anicteric. - HENT: Moist mucous membranes. - LUNGS: Clear to auscultation bilaterally, no wheezing, rhonchi, or rales. - CARDIOVASCULAR: Regular rate and rhythm. No murmur. No JVD. - ABDOMEN: Soft, left sided dressing+ hypoactive bowels - EXTREMITIES: No edema. Peripheral pulses 2+. Non-tender. - NEUROLOGIC: No focal neurological deficits. CN II-XII grossly intact. - PSYCHIATRIC: Awake, Alert and oriented x 3. Appropriate mood and affect. - SKIN: No rashes or lesions. Warm. - LYMPH: No cervical lymphadenopathy. Objective Data Vital Signs Vital Signs: Vital Signs - 24 hr 07/19/22 13:45 07/19/22 14:45 07/19/22 16:59 Temperature 98.2 F 98.3 F Pulse Rate 88 81 80 Respiratory Rate 14 18 Blood Pressure 155/60 H 170/69 H Pulse Oximetry 95 95 Oxygen Delivery Nasal Cannula Simple Face Mask Oxygen Flow Rate 3 10 07/19/22 17:15 07/19/22 17:28 07/19/22 17:43 Temperature Pulse Rate 85 89 85 Respiratory Rate 18 15 22 H Blood Pressure 155/47 H 151/53 H 165/61 H Pulse Oximetry 99 95 93 Oxygen Delivery Simple Face Mask Nasal Cannula Nasal Cannula Oxygen Flow Rate 10 3 3 07/19/22 18:13 07/19/22 18:30 07/19/22 18:45 Temperature 97.3 F L 97.6 F 97 F L Pulse Rate 83 88 92 Respiratory Rate 14 16 16 Blood Pressure 120/46 L 143/65 H 139/58 L Pulse Oximetry 94 96 97 Oxygen Delivery Oxygen Flow Rate 07/19/22 19:15 07/19/22 19:45 07/19/22 20:45 Temperature 97.2 F L 97.0 F L 97.0 F L Pulse Rate 88 89 90 Respiratory Rate 20 18 16 Blood Pressure 137/55 L 143/60 H 126/73 Pulse Oximetry 97 95 96 Oxygen Delivery Oxygen Flow Rate 07/19/22 21:45 07/19/22 22:45 07/19/22 23:45 Temperature 98.1 F 98.2 F 98.4 F Pulse Rate 86 88 86 Respiratory Rate 20 20 18 Blood Pressure 151/61 H 145/54 H 158/62 H Pulse Oximetry 99 98 99 Oxygen Delivery Oxygen Flow Rate 07/19/22 20:00 07/20/22 04:00 07/20/22 10:16 Temperature 97.9 F Pulse Rate 96 Respiratory Rate 16 Blood Pressure 149/46 H Pulse Oximetry 97 97 Oxygen Delivery Nasal Cannula Nasal Cannula Oxygen Flow Rate 3 3 Intake/Output Intake/Output: Intake & Output 07/17/22 07/18/22 07/19/22 07/20/22 23:59 23:59 23:59 23:59 Intake Total 1999 3160 50 Output Total 450 1070 Balance 1550 2090 50 Meds/Results Medications: Active Medications Generic Name Dose Route Start Last Admin Trade Name Freq PRN Reason Stop Dose Admin Albuterol 2 puff 07/18/22 21:02 Albuterol Sulfate (*Sp) Aerosol 1 Puff INHALATION Q4H PRN Shortness Of Breath Or Wheezing Fluticasone Propionate 2 spray 07/19/22 09:00 07/20/22 10:17 Fluticasone Propionate 0.05% Na Spr 16
--- NOTE | 2022-07-20 13:39 | WPDANESPN ---
Anes - Prog Note Post-Op Date/Time: 07/20/22 13:39 Vital Signs: Last Vital Signs Temp 36.6 C 07/20/22 04:00 Pulse 96 07/20/22 04:00 Resp 16 07/20/22 04:00 BP 149/46 H 07/20/22 04:00 Pulse Ox 97 07/20/22 10:10 O2 Del Method Nasal Cannula 07/20/22 10:16 O2 Flow Rate 3 07/20/22 10:16 FiO2 32 07/19/22 10:46 Pain Score (VAS): 0 I/O: Intake & Output 07/19/22 07/20/22 07/20/22 23:59 07:59 15:59 Intake Total 1050 50 120 Balance 1050 50 120 Laboratory Tests 07/20/22 04:24 07/20/22 04:24 07/20/22 04:24 WBC 17.3 H RBC 3.26 L Hgb 10.9 L Hct 33.0 L MCV 101.2 H MCH 33.4 MCHC 33.0 RDW 13.1 Plt Count 307 MPV 9.3 Sodium 135 L Potassium 3.0 L Chloride 97 L Carbon Dioxide 34 H Anion Gap 4 L BUN 23 H D Creatinine 0.80 Estim Creat Clear Calc Not Reportable Estimated GFR > 60 Glucose 103 Calcium 7.8 L Microbiology 07/18/22 13:03 Blood Blood Culture - Preliminary 07/18/22 13:03 Blood Blood Culture - Preliminary Patient Feedback: Patient satisfied with anesthetic care.
--- NOTE | 2022-07-20 15:05 | PC.NURSE ---
Pt is A&O4 female. Pt is very hard of hearing. Pt does have both hearing aids at bedside. Pt has steward/stewardess second class for hearing aids at bedside. Pt was up with therapy today. Pt tolerated ambulation to the bathroom and going back and forth between bed and chair. Pt has reported no pain and expresses no needs at this time. Pt has had a sitter in the room at all times today. Pt family is at bedside. Will continue to monitor pt for any changes in status.
--- NOTE | 2022-07-20 17:43 | PM.PNGS ---
Progress Note: A&P Assessment and Plan (1) Incarcerated left inguinal hernia: Code(s): K40.30 - Unilateral inguinal hernia, with obstruction, without gangrene, not specified as recurrent Status: Acute Assessment and Plan: Doing well postop day 1 after open repair of incarcerated left femoral hernia with mesh plug. Incisional tolerating clear liquids today. Physical therapy and occupational therapy to start ambulating the patient. Continue IV antibiotics for now. Continue postoperative supportive management. Subjective Subjective Date/Time Seen: 07/20/22 17:43 Post Op day: 1 Interval history: Patient is postop day 1 after an open incarcerated left femoral hernia repair with mesh plug. She has sitters in her room with her because she has been somewhat agitated. She awakens easily. Sitter states she is able to get up out of bed and use the commode to urinate. She has been afebrile and her white blood cell count has dropped from 22,000 down to 17,000. Exam Narrative: The abdomen is soft and minimally distended. Left groin incision is intact with mild ecchymosis but no some seroma or hematoma. There is no redness or drainage. Const: General: no acute distress Objective Data Vital Signs Vital Signs: Vital Signs - 24 hr 07/19/22 18:13 07/19/22 18:30 07/19/22 18:45 Temperature 36.3 C L 36.4 C 36.1 C L Pulse Rate 83 88 92 Respiratory Rate 14 16 16 Blood Pressure 120/46 L 143/65 H 139/58 L Pulse Oximetry 94 96 97 Oxygen Delivery Oxygen Flow Rate 07/19/22 19:15 07/19/22 19:45 07/19/22 20:45 Temperature 36.2 C L 36.1 C L 36.1 C L Pulse Rate 88 89 90 Respiratory Rate 20 18 16 Blood Pressure 137/55 L 143/60 H 126/73 Pulse Oximetry 97 95 96 Oxygen Delivery Oxygen Flow Rate 07/19/22 21:45 07/19/22 22:45 07/19/22 23:45 Temperature 36.7 C 36.8 C 36.9 C Pulse Rate 86 88 86 Respiratory Rate 20 20 18 Blood Pressure 151/61 H 145/54 H 158/62 H Pulse Oximetry 99 98 99 Oxygen Delivery Oxygen Flow Rate 07/19/22 20:00 07/20/22 04:00 07/20/22 10:16 Temperature 36.6 C Pulse Rate 96 Respiratory Rate 16 Blood Pressure 149/46 H Pulse Oximetry 97 97 Oxygen Delivery Nasal Cannula Nasal Cannula Oxygen Flow Rate 3 3 07/20/22 10:10 07/20/22 10:40 Temperature Pulse Rate Respiratory Rate Blood Pressure Pulse Oximetry 97 97 Oxygen Delivery Nasal Cannula Nasal Cannula Oxygen Flow Rate 2 3 Intake/Output Intake/Output: Intake & Output 07/17/22 07/18/22 07/19/22 07/20/22 23:59 23:59 23:59 23:59 Intake Total 19990 220 Output Total 450 1070 Balance 1550 2090 220 Meds/Results Medications: Active Medications Generic Name Dose Route Start Last Admin Trade Name Freq PRN Reason Stop Dose Admin Albuterol 2 puff 07/18/22 21:02 Albuterol Sulfate (*Sp) Aerosol 1 Puff INHALATION Q4H PRN Shortness Of Breath Or Wheezing Fluticasone Propionate 2 spray 07/19/22 09:00 07/20/22 10:17 Fluticasone Propionate 0.05% Na Spr 16 Gm Btl (*Bkc) NASAL 2 spray BID ILANA Administration Heparin Sodium (Porcine) 5,000 units 07/20/22 21:00 Heparin Sodium 5,000 Units/Ml Vial SUB-Q Q12HR ILANA Hydralazine HCl 10 mg 07/18/22 21:07 Hydralazine Hcl 20 Mg/Ml Vial IV PUSH Q8H PRN Blood Pressure - High Sodium Chloride 1,000 mls @ 75 mls/hr 07/18/22 14:40 07/20/22 10:19 Normal Saline Iv IV CONT Not Given .[id number] ILANA Piperacillin/Tazobactam/Dextrose 3.375 gm in 50 mls @ 100 mls/hr 07/19/22 21:00 07/20/22 15:33 Zosyn 3.375 Gm/Ns 50 Ml IVPB 100 mls/hr Q6H ILANA Administration Levothyroxine Sodium 50 mcg 07/19/22 06:30 07/20/22 06:05 Levothyroxine Sodium Inj 100 Mcg/5 Ml Vial IV PUSH 50 mcg DAILY@0630 ILANA Administration Lidocaine 1 patch 07/19/22 09:00 07/20/22 10:17 Lidocaine 5% Patch TOPICAL 1 patch DAILY ILANA Administration Miscellaneous Information 1 each 05
[2022-07-20] MEDS: MORPHINE SULFATE (*CRX) 4 MG/ML INJ IV PUSH (18:03)
[2022-07-20 20:00] VITALS: BP 133/46; PULSE 85; RESP 14; TEMP 36.8; O2SAT 98
[2022-07-20] MEDS: HEPARIN SODIUM 5,000 UNITS/ML VIAL 5000 UNITS SUB-Q (21:09)
[2022-07-21] MEDS: PIPERACILLN/TAZ 3.375GM/NS50ML 3.375 GM/50 ML BAG IVPB ×4 (03:57→21:29)
[2022-07-21 04:41] VITALS: BP 140/54; PULSE 84; RESP 14; TEMP 36.8; O2SAT 95
[2022-07-21] MEDS: LEVOTHYROXINE SODIUM INJ 100 MCG/5 ML VIAL 50 MCG IV PUSH (06:01)
[2022-07-21 06:47] LABS: Anion Gap 5 mmol/L (8-16); Blood Urea Nitrogen 12 mg/dL (7-17); Calcium 7.9 mg/dL (8.4-10.2); Carbon Dioxide 28 mmol/L (22-30); Chloride 101 mmol/L (98-107); Estimated Glomerular Filt Rate > 60; Glucose 111 mg/dL (65-110); Potassium 3.5 mmol/L (3.4-5.0); Sodium 134 mmol/L (137-145)
[2022-07-21 08:21] VITALS: O2SAT 98
[2022-07-21 09:03] VITALS: O2SAT 93
[2022-07-21] MEDS: FLUTICASONE PROPIONATE 0.05% NA SPR 16 GM BTL (*BKC) 2 SPRAY NASAL (09:25)
[2022-07-21] MEDS: HEPARIN SODIUM 5,000 UNITS/ML VIAL 5000 UNITS SUB-Q ×2 (09:25→21:29)
[2022-07-21] MEDS: PANTOPRAZOLE 40 MG TABLET PO (09:25)
[2022-07-21] MEDS: LIDOCAINE 5% PATCH 1 PATCH TOPICAL (09:32)
--- NOTE | 2022-07-21 09:54 | PM.PNGS ---
Progress Note: A&P Assessment and Plan (1) Incarcerated left inguinal hernia: Code(s): K40.30 - Unilateral inguinal hernia, with obstruction, without gangrene, not specified as recurrent Status: Acute Assessment and Plan: Continues to improve postop day 2 following open repair of incarcerated left femoral hernia with mesh plug. Bowel function returning. Will advance to full liquids this morning. Start transitioning to oral analgesics. Continue IV Zosyn for now, waiting for today's labs as her white count was still 17k yesterday. PT/OT following to help with discharge planning, continue to increase activity as tolerated. If strength and mobility does not improve, the patient may need acute rehab on discharge as she lives at home alone. Plan I have discussed the patient's case and plan of care with Dr. Srinivasan. Subjective Subjective Date/Time Seen: 07/21/22 08:14 Post Op day: 2 (Open left femoral hernia repair) Patient reports: no new complaints, tolerating liquids well, flatus, bowel movement (x 1 yesterday) and afebrile Interval history: Patient doing well today. She is lying in bed but planning on getting up to the chair for breakfast. She has some mild incisional soreness that is worse after getting up and moving, but not having any significant pain at this time. She denies dyspnea or chest pain. She is tolerating her liquids with no nausea, vomiting, or bloating. She tolerated getting up to the chair well yesterday. No other complaints at this time. Respiratory therapy turned her O2 off this morning and she is currently on room air. They are going to spot check her again shortly, but her O2 sats were 98% when they turned her 2 liters off. Review of Systems Review of Systems: ROS unchanged Exam Const: General: comfortable and no acute distress Orientation/consciousness: patient oriented x3 Resp: Effort & Inspection: no respiratory distress Auscultation: clear to auscultation bilaterally Cardio: Rate: regular rate Rhythm: regular rhythm GI: Inspection: other (minimally distended, improving) GI Palp: Yes Soft to palpation, Yes Tenderness to palpation present (GI) (mild expected tenderness at left groin incision) and No Guarding due to palpation present (GI) Auscultation: normal bowel sounds Other: Left groin incision dry and glue intact with mild ecchymosis, edges well approximated. No redness or drainage. Extrem: General: no calf tenderness and no edema Psych: Mental Status: mental status grossly normal Insight: Good insight present (Psych) Objective Data Vital Signs Vital Signs: Vital Signs - 24 hr 07/20/22 10:16 07/20/22 10:10 07/20/22 10:40 Temperature Pulse Rate Respiratory Rate Blood Pressure Pulse Oximetry 97 97 Oxygen Delivery Nasal Cannula Nasal Cannula Nasal Cannula Oxygen Flow Rate 3 2 3 07/20/22 20:00 07/21/22 04:41 07/21/22 08:21 Temperature 98.3 F 98.2 F Pulse Rate 85 84 Respiratory Rate 14 14 Blood Pressure 133/46 L 140/54 L Pulse Oximetry 98 95 98 Oxygen Delivery Nasal Cannula Oxygen Flow Rate 2 07/21/22 09:03 Temperature Pulse Rate Respiratory Rate Blood Pressure Pulse Oximetry 93 Oxygen Delivery Room Air Oxygen Flow Rate Intake/Output Intake/Output: Intake & Output 07/18/22 07/19/22 07/20/22 07/21/22 23:59 23:59 23:59 23:59 Intake Total 1999 3160 1720 1100 Output Total 450 1070 600 Balance 1550 2090 1120 1100 Meds/Results Medications: Active Medications Generic Name Dose Route Start Last Admin Trade Name Freq PRN Reason Stop Dose Admin Albuterol 2 puff 07/18/22 21:02 Albuterol Sulfate (*Sp) Aerosol 1 Puff INHALATION Q4H PRN Shortness Of Breath Or Wheezing Fluticasone Propionate 2 spray 07/19/22 09:00 07/21/22 09:25 Fluticasone Propionate 0.05% Na Spr 16 Gm Btl (*Bkc) NASAL 2 spray BID ILANA Administration Heparin Sodium (Porcine) 5,000 units 07/20/22 21:00 07/21/22 09:2
[2022-07-21 10:22] LABS: Basophils Percent Auto 0.3 % (0.2-1.2); Eosinophils Absolute Auto 0.2 K/mm3 (0-0.3); Eosinophils Percent Auto 1.1 % (0-4.4); Hematocrit 34.5 % (37.0-47.0); Hemoglobin 11.1 g/dL (12.0-15.0); Immature Granulocyte Absolute 0.06 K/mm3 (0.00-0.031); Immature Granulocyte Percent A 0.4 % (0-0.5); Lymphocytes Absolute Auto 1.18 K/mm3 (0.9-3.2); Lymphocytes Percent Auto 8.3 % (18.3-44.2); Mean Corpuscular HGB Conc 32.2 g/dl (32-36); Mean Corpuscular Hemoglobin 33.1 pg (26-34); Mean Platelet Volume 10.3 fl (7.4-10.4); Monocytes Absolute Auto 1.8 K/mm3 (0.1-0.6); Monocytes Percent Auto 12.3 % (2.6-8.5); Neutrophils Absolute Auto 11.1 K/mm3 (1.3-6.7); Neutrophils Percent Auto 77.6 % (45.5-73.1); Platelet Count Result 324 k/mm3 (150-375); Red Blood Count 3.35 M/mm3 (4.2-5.4); Red Cell Distribution Width 13.1 % (11.5-14.5); White Blood Count 14.3 K/mm3 (4.5-10.0)
[2022-07-21 14:00] VITALS: BP 135/49; PULSE 73; RESP 22; TEMP 37.1; O2SAT 96
--- NOTE | 2022-07-21 16:01 | PM.IMPN ---
Progress Note: A&P Assessment and Plan (1) Incarcerated left inguinal hernia: Code(s): K40.30 - Unilateral inguinal hernia, with obstruction, without gangrene, not specified as recurrent Status: Acute (2) Leukocytosis: Code(s): D72.829 - Elevated white blood cell count, unspecified Status: Acute Plan 87 years old F admitted with incarcerated left inguina hernia causing small-bowel obstruction.?Surgery was consulted, s/p Open left femoral hernia repair with lightweight PerFix mesh plugPOD#2 1)SBO 2/2 incarcerated let inguinal hernia s/p Open left femoral hernia repair with lightweight PerFix mesh plugPOD#2 Appreciate surgery help Post operative care as surgery Clear liquid diet, advanced to FLD 07/21 Supplement potassium C/w IV fluids c/w Zosyn Monitor leucocytosis 2)H/o Hypothyroidism c/w levotyroxine 3)DVT ppx:Hep SQ 3)Code:DNR 4)Dispo:pending improvement Subjective Date/time seen: 07/21/22 16:01 Interval history: No overnight events noted. No chest pain or shortness of breath. No nausea, vomiting or diarrhea. No fevers or chills. Still with sitter at bedside, some confusion postop. Diet advanced. Review of Systems Review of Systems: 12 point review of systems was assessed and was negative except as noted in the HPI Exam Narrative: General: No acute distress, alert and oriented per baseline HEENT: Atraumatic, normocephalic, mucous membranes moist CV: Regular rate and rhythm, S1, S2 Lungs: Clear to auscultation bilaterally, no rales or crackles noted, no wheezes, good air entry Abdomen: Soft, somewhat TTP, nondistended Extremities: Normal to inspection Skin: No rashes noted, no lesions or wounds seen Psych: Euthymic, normal affect Objective Data Vital Signs Vital Signs: Vital Signs - 24 hr 07/20/22 20:00 07/21/22 04:41 07/21/22 08:21 Temperature 98.3 F 98.2 F Pulse Rate 85 84 Respiratory Rate 14 14 Blood Pressure 133/46 L 140/54 L Pulse Oximetry 98 95 98 Oxygen Delivery Nasal Cannula Oxygen Flow Rate 2 07/21/22 09:03 07/21/22 09:37 07/21/22 14:00 Temperature 98.7 F Pulse Rate 73 Respiratory Rate 22 H Blood Pressure 135/49 L Pulse Oximetry 93 96 Oxygen Delivery Room Air Room Air Oxygen Flow Rate Intake/Output Intake/Output: Intake & Output 07/18/22 07/19/22 07/20/22 07/21/22 23:59 23:59 23:59 23:59 Intake Total 1999 3160 1720 1580 Output Total 450 1070 600 250 Balance 1550 2090 1120 1330 Meds/Results Medications: Active Medications Generic Name Dose Route Start Last Admin Trade Name Freq PRN Reason Stop Dose Admin Acetaminophen 650 mg 07/21/22 09:53 Acetaminophen 325 Mg Tablet PO Q6H PRN Mild Pain (1-3) or Fever Hydrocodone Bitart/Acetaminophen 1 tab 07/21/22 09:53 Hydrocodone/Acetaminophen (*Crx) 5-325 Mg Tablet PO Q4H PRN Pain Rated 4-6 Hydrocodone Bitart/Acetaminophen 1 tab 07/21/22 09:53 Hydrocodone/Acetaminophen (*Crx) 10-325 Mg Tablet PO Q6H PRN Pain Rated 7-10 Albuterol 2 puff 07/18/22 21:02 Albuterol Sulfate (*Sp) Aerosol 1 Puff INHALATION Q4H PRN Shortness Of Breath Or Wheezing Fluticasone Propionate 2 spray 07/19/22 09:00 07/21/22 09:25 Fluticasone Propionate 0.05% Na Spr 16 Gm Btl (*Bkc) NASAL 2 spray BID ILANA Administration Heparin Sodium (Porcine) 5,000 units 07/20/22 21:00 07/21/22 09:25 Heparin Sodium 5,000 Units/Ml Vial SUB-Q 5,000 units Q12HR ILANA Administration Hydralazine HCl 10 mg 07/18/22 21:07 Hydralazine Hcl 20 Mg/Ml Vial IV PUSH Q8H PRN Blood Pressure - High Piperacillin/Tazobactam/Dextrose 3.375 gm in 50 mls @ 100 mls/hr 07/19/22 21:00 07/21/22 09:11 Zosyn 3.375 Gm/Ns 50 Ml IVPB 100 mls/hr Q6H ILANA Administration Levothyroxine Sodium 50 mcg 07/19/22 06:30 07/21/22 06:01 Levothyroxine Sodium Inj 100 Mcg/5 Ml Vial IV PUSH 50 mcg DAILY@0630 ILANA
--- NOTE | 2022-07-21 18:17 | PC.NURSE ---
Pt has tolerated being up in chair today. animal impersonator was taken away. Pt doing well without sitter. Pt had family at bedside throughout the day. Will continue to monitor pt.
[2022-07-21 20:00] VITALS: PULSE 84; RESP 18; O2SAT 94
[2022-07-21 21:45] VITALS: BP 134/40; PULSE 84; RESP 18; TEMP 36.5; O2SAT 94
[2022-07-22 01:20] VITALS: BP 150/67; PULSE 91; RESP 24; TEMP 35.8; O2SAT 96
[2022-07-22] MEDS: PIPERACILLN/TAZ 3.375GM/NS50ML 3.375 GM/50 ML BAG IVPB ×2 (03:18→08:22)
[2022-07-22 05:00] VITALS: BP 144/50; PULSE 82; RESP 18; TEMP 35.9; O2SAT 94
[2022-07-22 06:27] LABS: Hematocrit 30.9 % (37.0-47.0); Hemoglobin 10.1 g/dL (12.0-15.0); Mean Corpuscular HGB Conc 32.7 g/dl (32-36); Mean Corpuscular Hemoglobin 33.7 pg (26-34); Mean Platelet Volume 11.1 fl (7.4-10.4); Platelet Count Result 252 k/mm3 (150-375); Red Cell Distribution Width 12.9 % (11.5-14.5); White Blood Count 10.5 K/mm3 (4.5-10.0)
[2022-07-22] MEDS: LEVOTHYROXINE SODIUM INJ 100 MCG/5 ML VIAL 50 MCG IV PUSH (06:38)
[2022-07-22 06:45] LABS: Anion Gap 3 mmol/L (8-16); Blood Urea Nitrogen 9 mg/dL (7-17); Carbon Dioxide 29 mmol/L (22-30); Chloride 104 mmol/L (98-107); Estimated Glomerular Filt Rate > 60; Glucose 107 mg/dL (65-110); Potassium 3.2 mmol/L (3.4-5.0); Sodium 136 mmol/L (137-145)
[2022-07-22] MEDS: FLUTICASONE PROPIONATE 0.05% NA SPR 16 GM BTL (*BKC) 2 SPRAY NASAL ×2 (08:22→16:09)
[2022-07-22] MEDS: PANTOPRAZOLE 40 MG TABLET PO (08:22)
[2022-07-22] MEDS: HEPARIN SODIUM 5,000 UNITS/ML VIAL 5000 UNITS SUB-Q (08:22)
[2022-07-22] MEDS: LIDOCAINE 5% PATCH 1 PATCH TOPICAL (09:14)
--- NOTE | 2022-07-22 10:25 | PM.IMPN ---
Progress Note: A&P Assessment and Plan (1) Incarcerated left inguinal hernia: Code(s): K40.30 - Unilateral inguinal hernia, with obstruction, without gangrene, not specified as recurrent Status: Acute (2) Leukocytosis: Code(s): D72.829 - Elevated white blood cell count, unspecified Status: Acute Plan 87 years old F admitted with incarcerated left inguina hernia causing small-bowel obstruction.?Surgery was consulted, s/p open left femoral hernia repair with lightweight PerFix mesh plug POD#3 SBO 2/2 incarcerated let inguinal hernia, s/p Open left femoral hernia repair with lightweight PerFix mesh plug POD#3 Appreciate surgery help, post operative care as surgery ADAT, supplement potassium as needed D/c IV fluids, de-escalate Zosyn to cipro/flagyl / to complete a 10 day course, end date 07/31 Leuk resolving H/o Hypothyroidism c/w levothyroxine DVT ppx: Hep SQ Code: DNR Dispo: pending improvement Subjective Date/time seen: 07/22/22 10:25 Interval history: No overnight events noted. No chest pain or shortness of breath. No nausea, vomiting or diarrhea. No fevers or chills. Sitter d/c. Much better than yesterday, less confused. No complaints. Review of Systems Review of Systems: 12 point review of systems was assessed and was negative except as noted in the HPI Exam Narrative: General: No acute distress, alert and oriented per baseline HEENT: Atraumatic, normocephalic, mucous membranes moist CV: Regular rate and rhythm, S1, S2 Lungs: Clear to auscultation bilaterally, no rales or crackles noted, no wheezes, good air entry Abdomen: Soft, somewhat TTP, nondistended Extremities: Normal to inspection Skin: No rashes noted, no lesions or wounds seen Psych: Euthymic, normal affect Objective Data Vital Signs Vital Signs: Vital Signs - 24 hr 07/21/22 14:00 07/21/22 21:45 07/21/22 20:00 Temperature 98.7 F 97.7 F Pulse Rate 73 84 84 Respiratory Rate 22 H 18 18 Blood Pressure 135/49 L 134/40 L Pulse Oximetry 96 94 94 Oxygen Delivery Room Air Fraction of Inspired Oxygen 32 07/22/22 01:20 07/22/22 05:00 Temperature 96.4 F L 96.6 F L Pulse Rate 91 82 Respiratory Rate 24 H 18 Blood Pressure 150/67 H 144/50 H Pulse Oximetry 96 94 Oxygen Delivery Fraction of Inspired Oxygen Intake/Output Intake/Output: Intake & Output 07/19/22 07/20/22 07/21/22 07/22/22 23:59 23:59 23:59 23:59 Intake Total 3160 1720 2210 225 Output Total 1070 600 250 Balance 2090 1120 1960 225 Meds/Results Medications: Active Medications Generic Name Dose Route Start Last Admin Trade Name Freq PRN Reason Stop Dose Admin Acetaminophen 650 mg 07/21/22 09:53 Acetaminophen 325 Mg Tablet PO Q6H PRN Mild Pain (1-3) or Fever Hydrocodone Bitart/Acetaminophen 1 tab 07/21/22 09:53 Hydrocodone/Acetaminophen (*Crx) 5-325 Mg Tablet PO Q4H PRN Pain Rated 4-6 Hydrocodone Bitart/Acetaminophen 1 tab 07/21/22 09:53 Hydrocodone/Acetaminophen (*Crx) 10-325 Mg Tablet PO Q6H PRN Pain Rated 7-10 Albuterol 2 puff 07/18/22 21:02 Albuterol Sulfate (*Sp) Aerosol 1 Puff INHALATION Q4H PRN Shortness Of Breath Or Wheezing Fluticasone Propionate 2 spray 07/19/22 09:00 07/22/22 08:22 Fluticasone Propionate 0.05% Na Spr 16 Gm Btl (*Bkc) NASAL 2 spray BID ILANA Administration Heparin Sodium (Porcine) 5,000 units 07/20/22 21:00 07/22/22 08:22 Heparin Sodium 5,000 Units/Ml Vial SUB-Q 5,000 units Q12HR ILANA Administration Hydralazine HCl 10 mg 07/18/22 21:07 Hydralazine Hcl 20 Mg/Ml Vial IV PUSH Q8H PRN Blood Pressure - High Piperacillin/Tazobactam/Dextrose 3.375 gm in 50 mls @ 100 mls/hr 07/19/22 21:00 07/22/22 08:52 Zosyn 3.375 Gm/Ns 50 Ml IVPB Infused Q6H ILANA Infusion Levothyroxine Sodium 50 mcg 07/19/22 06:30 07/22/22 06:38 Levothyroxine Sodium Inj 100 Mcg/5 Ml Vial IV
[2022-07-22] MEDS: CIPROFLOXACIN 500 MG TAB PO (11:55)
[2022-07-22] MEDS: metroNIDAZOLE 250 MG TABLET 500 MG PO ×2 (11:56→16:09)
[2022-07-22] MEDS: ACETAMINOPHEN 325 MG TABLET 650 MG PO (12:00)
[2022-07-22 14:00] VITALS: BP 132/46; PULSE 86; RESP 20; TEMP 36.2; O2SAT 96
--- NOTE | 2022-07-22 14:31 | PM.DS ---
DS: Admitting Diagnosis Discharge Date 07/22/22 Admitting Diagnosis nausea + emesis DS: Discharge Diagnosis Discharge Diagnosis (1) Incarcerated left inguinal hernia: Code(s): K40.30 - Unilateral inguinal hernia, with obstruction, without gangrene, not specified as recurrent Status: Acute (2) Leukocytosis: Code(s): D72.829 - Elevated white blood cell count, unspecified Status: Acute Plan 87 years old F admitted with incarcerated left inguina hernia causing small-bowel obstruction.?Surgery was consulted, s/p open left femoral hernia repair with lightweight PerFix mesh plug POD#3 SBO 2/2 incarcerated let inguinal hernia, s/p Open left femoral hernia repair with lightweight PerFix mesh plug POD#3 Appreciate surgery help, post operative care as surgery ADAT, supplement potassium as needed D/c IV fluids, de-escalate Zosyn to cipro/flagyl 5/ to complete a 10 day course, end date 07/31 Leuk resolving H/o Hypothyroidism c/w levothyroxine DVT ppx: Hep SQ Code: DNR Dispo: pending improvement DS: Summary Hospital Course Hospital Course: 87 years old F admitted with incarcerated left inguina hernia causing small-bowel obstruction.?Surgery was consulted, s/p open left femoral hernia repair with lightweight PerFix mesh plug /. She was started on Zosyn, transitioned to Cipro/Flagyl to complete a 10 day course. See above and med rec for details. Time Spent with Patient Time attestation: Total time spent providing and/or coordinating discharge services: Exam Narrative: General: No acute distress, alert and oriented per baseline HEENT: Atraumatic, normocephalic, mucous membranes moist CV: Regular rate and rhythm, S1, S2 Lungs: Clear to auscultation bilaterally, no rales or crackles noted, no wheezes, good air entry Abdomen: Soft, somewhat TTP, nondistended Extremities: Normal to inspection Skin: No rashes noted, no lesions or wounds seen Psych: Euthymic, normal affect DS: Data Data Completed and Pending Labs on day of discharge: Labs from last 24 hours 07/22/22 05:38 WBC 10.5 H RBC 3.00 L Hgb 10.1 L Hct 30.9 L MCV 103.0 H MCH 33.7 MCHC 32.7 RDW 12.9 Plt Count 252 MPV 11.1 H Sodium 136 L Potassium 3.2 L Chloride 104 Carbon Dioxide 29 Anion Gap 3 L BUN 9 Creatinine 0.50 L Estim Creat Clear Calc Not Reportable Estimated GFR > 60 Glucose 107 Calcium 8.0 L Preliminary micro results at discharge 07/18/22 13:03 Blood Culture - Preliminary Blood 07/18/22 13:03 Blood Culture - Preliminary Blood Discharge Plan Discharge Attending physician on discharge: Lili Osorio Consulting providers: Rebekah Ely; Suzy Wynne Discharging Clinician: Lili Osorio Patient Disposition: Inpatient Rehab Facility Activity: as tolerated Diet: as tolerated Wound Care Instructions: incision open to air Discharge Instructions: Surgery instructions: Follow-up with Dr. Srinivasan in 2 weeks. Call the office to schedule that appointment ([phone]). Incision is left open to air. May shower over incision with soap and water, pat dry. Surgical glue will start peeling off over the next 2 weeks as it heals. No lifting more than 5-10 pounds until seen in the surgeon's office. Walking and stairs are okay. Call the surgeon if you develop redness, drainage, or swelling at your incision. No driving until instructed differently in follow-up by your surgeon Stand Alone Forms: General Discharge Information Follow-up/Referrals: Moon Goff APRN [Primary Care Provider] - Forrest Srinivasan MD [Physician] - 2 Weeks Discharge Medications: New metronidazole 250 mg Tablet 500 mg PO Q8HR 7 Days Qty: 42 0RF pantoprazole 40 mg Tablet,Delayed Release (Dr/Ec) 40 mg PO QAM 30 Days Qty: 30 0RF ciprofloxacin HCl 500 mg Tablet 500 mg PO Q12HR 7 Days Qty: 14 0RF Continued magnesium oxide 500 mg table
--- NOTE | 2022-07-22 14:43 | PM.PNGS ---
Progress Note: A&P Assessment and Plan (1) Incarcerated left inguinal hernia: Code(s): K40.30 - Unilateral inguinal hernia, with obstruction, without gangrene, not specified as recurrent Status: Acute Assessment and Plan: Continues to improve postop day 3 following open repair of incarcerated left femoral hernia with mesh plug. Bowels are functioning. Tolerating a solid diet. Leukocytosis trending down, antibiotics per Hospitalist. Okay from a surgical standpoint to discharge the patient to acute rehab. Follow-up with Dr. Srinivasan in 2 weeks. Plan I have discussed the patient's case and plan of care with Dr. Srinivasan. Subjective Subjective Date/Time Seen: 07/22/22 14:43 Post Op day: 3 (Open left femoral hernia repair with lightweight PerFix mesh plug) Patient reports: no new complaints, tolerating a regular diet, flatus, bowel movement and afebrile Interval history: Patient doing well today. Denies nausea, vomiting, or bloating. Tolerating solids and bowels are moving. Incisional soreness but has only required Tylenol for this. No other complaints at this time. Per CC, she is accepted at [facility] for discharge. Patient lives at home alone. Review of Systems Review of Systems: ROS unchanged Exam Const: General: comfortable and no acute distress Orientation/consciousness: patient oriented x3 GI: Inspection: non-distended GI Palp: Yes Soft to palpation, No Tenderness to palpation present (GI), No Guarding due to palpation present (GI), No Hernia present and No Rebound tenderness present Auscultation: normal bowel sounds Other: Left groin incision dry and glue intact with mild ecchymosis, edges well approximated. No redness or drainage. Objective Data Vital Signs Vital Signs: Vital Signs - 24 hr 07/21/22 21:45 07/21/22 20:00 07/22/22 01:20 Temperature 97.7 F 96.4 F L Pulse Rate 84 84 91 Respiratory Rate 18 18 24 H Blood Pressure 134/40 L 150/67 H Pulse Oximetry 94 94 96 Oxygen Delivery Room Air Fraction of Inspired Oxygen 32 07/22/22 05:00 07/22/22 08:22 Temperature 96.6 F L Pulse Rate 82 Respiratory Rate 18 Blood Pressure 144/50 H Pulse Oximetry 94 Oxygen Delivery Room Air Fraction of Inspired Oxygen Intake/Output Intake/Output: Intake & Output 07/19/22 07/20/22 07/21/22 07/22/22 23:59 23:59 23:59 23:59 Intake Total 3160 1720 2210 405 Output Total 1070 600 250 Balance 2090 1120 1960 405 Meds/Results Medications: Active Medications Generic Name Dose Route Start Last Admin Trade Name Freq PRN Reason Stop Dose Admin Acetaminophen 650 mg 07/21/22 09:53 07/22/22 12:00 Acetaminophen 325 Mg Tablet PO 650 mg Q6H PRN Administration Mild Pain (1-3) or Fever Hydrocodone Bitart/Acetaminophen 1 tab 07/21/22 09:53 Hydrocodone/Acetaminophen (*Crx) 5-325 Mg Tablet PO Q4H PRN Pain Rated 4-6 Hydrocodone Bitart/Acetaminophen 1 tab 07/21/22 09:53 Hydrocodone/Acetaminophen (*Crx) 10-325 Mg Tablet PO Q6H PRN Pain Rated 7-10 Albuterol 2 puff 07/18/22 21:02 Albuterol Sulfate (*Sp) Aerosol 1 Puff INHALATION Q4H PRN Shortness Of Breath Or Wheezing Ciprofloxacin 500 mg 07/22/22 10:30 07/22/22 11:55 Ciprofloxacin 500 Mg Tab PO 500 mg Q12HR ILANA Administration Fluticasone Propionate 2 spray 07/19/22 09:00 07/22/22 08:22 Fluticasone Propionate 0.05% Na Spr 16 Gm Btl (*Bkc) NASAL 2 spray BID ILANA Administration Heparin Sodium (Porcine) 5,000 units 07/20/22 21:00 07/22/22 08:22 Heparin Sodium 5,000 Units/Ml Vial SUB-Q 5,000 units Q12HR ILANA Administration Hydralazine HCl 10 mg 07/18/22 21:07 Hydralazine Hcl 20 Mg/Ml Vial IV PUSH Q8H PRN Blood Pressure - High Levothyroxine Sodium 50 mcg 07/19/22 06:30 07/22/22 06:38 Levothyroxine Sodium Inj 100 Mcg/5 Ml Vial IV PUSH 50 mcg DAILY@0630 ILANA Administration Lidocaine 1 patch 07/19/22 09:00 07/22/22 09:14
[2022-07-22] MEDS: POTASSIUM CHLORIDE 20 MEQ TABLET 40 MEQ PO (15:11)
[2022-07-22 16:02] LABS: Osmolality, Urine 414 mOsm/kg (50-1200)
--- NOTE | 2022-07-22 18:19 | PC.NURSE ---
On 07/22/22, Mikaela Marion, provided care and completed [employer] documentation on this patient. I have reviewed her documentation and agree with the findings.
== END 2022-07-22 17:50 | DRG 351 ==
LOC: ANHED 14:44 → ANHIMU 16:29 → ANH3MEDSUR 07-20 04:14
PROVIDERS: Emergency Medicine; Internal Medicine; Nurse Practitioner; Nurse Practitioner Family; Surgery; Admitting Provider Family Medicine; Emergency Provider Physician Assistant; PCP Nurse Practitioner Family; Visit Provider Student in an Organized Health Care Education/Training Program
PROC: 0YU80JZ Supplement Left Femoral Region with Synthetic Substitute, Open Approach (ICD-10-PCS; principal; 2022-07-19 14:30)
DX: K41.30 Unilateral femoral hernia, with obstruction, without gangrene, not specified as recurrent (principal); E87.1 Hypo-osmolality and hyponatremia; N17.9 Acute kidney failure, unspecified; E87.3 Alkalosis; I10 Essential (primary) hypertension; E03.9 Hypothyroidism, unspecified; R77.8 Other specified abnormalities of plasma proteins; F41.9 Anxiety disorder, unspecified; F32.9 Major depressive disorder, single episode, unspecified; Z91.81 History of falling
CPT/HCPCS: 36415; 36600; 70450; 71046; 74176; 76775; 80048; 80053; 81001; 82375; 82570; 82805; 83050; 83605; 83690; 83735; 83935; 84300; 84439; 84443; 84480; 84484; 85025; 85027; 87040; 87076; 93005; 96360; 96361; 97110; 97161; 97165; 97530; 97535; 99285; A9270; C1781; G0378; J0330; J1170; J1644; J2270; J2370; J2405; J2543; J2704; J3010; J3480; J7030; J7040; J7120

== ENCOUNTER 2023-02-02 16:51 | Outpatient (CLI) | payer MEDICARE, OTHER, SELFPAY ==
[2023-02-02 18:11] LABS: Alanine Aminotransferase 28 U/L (6-35); Albumin Level 4.5 g/dL (3.5-5.1); Alkaline Phosphatase 92 U/L (38-126); Anion Gap 11 mmol/L (8-16); Aspartate Amino Transferase 36 U/L (14-36); Bilirubin,Total 0.6 mg/dL (0.2-1.3); Blood Urea Nitrogen 39 mg/dL (7-17); Calcium 9.5 mg/dL (8.4-10.2); Carbon Dioxide 23 mmol/L (22-30); Chloride 100 mmol/L (98-107); Estimated Glomerular Filt Rate 52; Glucose 131 mg/dL (65-110); Potassium 4.8 mmol/L (3.4-5.0); Sodium 134 mmol/L (137-145)
[2023-02-03 01:58] LABS: Hemoglobin A1C 5.4 % (<5.7)
== END 2023-02-02 16:52 | disposition home or self-care (01) ==
LOC: ANHLAB 16:53
PROVIDERS: PCP Nurse Practitioner; Visit Provider Nurse Practitioner
DX: I10 Essential (primary) hypertension (principal); R73.9 Hyperglycemia, unspecified; E03.9 Hypothyroidism, unspecified
CPT/HCPCS: 36415; 80053; 83036; 84443

== ENCOUNTER 2023-07-22 10:55 | Outpatient (CLI) | payer MEDICARE, OTHER, SELFPAY ==
[2023-07-22 11:37] LABS: Alanine Aminotransferase 21 U/L (6-35); Albumin Level 4.7 g/dL (3.5-5.1); Alkaline Phosphatase 63 U/L (38-126); Anion Gap 7 mmol/L (4-12); Aspartate Amino Transferase 34 U/L (14-36); Bilirubin,Total 0.9 mg/dL (0.2-1.3); Blood Urea Nitrogen 17 mg/dL (7-17); Calcium 9.2 mg/dL (8.4-10.2); Carbon Dioxide 28 mmol/L (22-30); Chloride 102 mmol/L (98-107); Estimated Glomerular Filt Rate > 60; Glucose 97 mg/dL (65-110); Potassium 4.4 mmol/L (3.4-5.0); Sodium 137 mmol/L (137-145)
[2023-07-22 12:07] LABS: Thyroid Stimulating Hormone 0.597 uIU/mL (0.465-4.680)
[2023-07-22 12:34] LABS: Hemoglobin A1C 5.2 % (<5.7)
== END 2023-07-22 10:56 | disposition home or self-care (01) ==
LOC: ANHLAB 10:57
PROVIDERS: PCP Nurse Practitioner; Visit Provider Nurse Practitioner
DX: E03.9 Hypothyroidism, unspecified (principal); R73.9 Hyperglycemia, unspecified; I10 Essential (primary) hypertension
CPT/HCPCS: 36415; 80053; 83036; 84443

== ENCOUNTER 2024-05-22 11:19 | Outpatient (CLI) | payer MEDICARE, OTHER, SELFPAY ==
[2024-05-22 12:02] LABS: Hematocrit 34.8 % (37.0-47.0); Hemoglobin 11.9 g/dL (12.0-15.0); Mean Corpuscular HGB Conc 34.2 g/dl (32-36); Mean Corpuscular Hemoglobin 33.8 pg (26-34); Mean Corpuscular Volume 98.9 fl (80-100); Mean Platelet Volume 9.7 fl (7.4-10.4); Platelet Count Result 232 k/mm3 (150-375); Red Blood Count 3.52 M/mm3 (4.2-5.4); Red Cell Distribution Width 12.5 % (11.5-14.5); White Blood Count 8.6 K/mm3 (4.5-10.0)
[2024-05-22 12:17] LABS: Alanine Aminotransferase 21 U/L (6-35); Albumin Level 4.8 g/dL (3.5-5.1); Alkaline Phosphatase 65 U/L (38-126); Anion Gap 13 mmol/L (4-12); Aspartate Amino Transferase 27 U/L (14-36); Bilirubin,Total 1.2 mg/dL (0.2-1.3); Blood Urea Nitrogen 18 mg/dL (7-17); Calcium 9.5 mg/dL (8.4-10.2); Carbon Dioxide 23 mmol/L (22-30); Chloride 91 mmol/L (98-107); Estimated Glomerular Filt Rate 59; Glucose 105 mg/dL (65-110); Potassium 4.5 mmol/L (3.4-5.0); Sodium 127 mmol/L (137-145)
[2024-05-22 12:47] LABS: Thyroid Stimulating Hormone 0.863 uIU/mL (0.465-4.680)
--- OUTSIDE RECORDS SUMMARY | 2024-05-22 13:00 | XMS_ITS | Clinical Summary ---
Author Organization [facility] Address [address] [place] [id number] Care Team Providers Care Torts Law Professor Name Role Phone Octavio Valencia MD Primary Care Provider Unavail able Social History Tobacco Use Types Packs/Day Years Used Date Smoking Tobacco: Never Assessed Comments Unknown Sex and Gender Information Value Date Recorded Sex Assigned at Not on file Legal Sex Female 8:31 PM CDT Gender Identity Not on file Sexual Orientation Not on file Last Filed Vital Signs Vital Sign Reading Time Taken Comments Blood Pressure 134/78 06/05/2014 10:59 AM CDT Pulse 68 02/06/2014 10:48 AM HEAD OF DIGITAL Temperature - - Respiratory Rate - - Oxygen Saturation - - Inhaled Oxygen Concentration - - Weight 81.6 kg (180 lb) 06/05/2014 10:59 AM CDT Height 149.9 cm (4' 11 ) 02/06/2014 10:27 AM HEAD OF DIGITAL Body Mass Index 36.36 02/06/2014 10:27 AM HEAD OF DIGITAL Plan of Treatment Health Maintenance Due Date Last Done Comments Zoster Vaccines (1 of 2) 05/07/1985 DTaP, Tdap and Td Vaccines ( 1 - Tdap) 04/21/2004 04/20/2004 Pneumococcal Vaccine: 65+ Years (2 of 2 - PCV) 04/20/2005 04/20/2004, 12/30/1989 RSV Immunization or 60+ Years (1 - 1-dose 75+ series) 05/07/2010 COVID-19 Vaccine ( - 2023-2 5 season) 2023 Influenza Adult (#1) 2023 02/06/2014, 01/24/2013 Meningococcal B Vaccine Aged Out No l onger eligible based on patient's age to complete this topic Meningococcal Vaccine Aged Out No ruddy jong eligible based on patient's age to complete this topic RSV Immunizations Under 20 Months Aged Out No longer eligible b ased on patient's age to complete this topic Care Teams Torts Law Professor Relationship Specialty Start Date End Date Octavio Valencia MD PCP - General 01/17/14
--- OUTSIDE RECORDS SUMMARY | 2024-05-22 13:00 | XMS_ITS | Encounter Summary ---
Author Organization [facility] Address [address] [place] [id number] Care Team Providers Care Edging Machine Setter Name Role Phone Octavio Valencia MD Primary Care Provider Unavail able Encounter Details Date Type Department Care Team (Latest Contact Info) Description 01/10/[address] [facility] Nina Chan MD Social History Tobacco Use Types Packs/Day Years Used Date Smoking Tobacco: Never Assessed Comments Unknown Sex and Gender Information Value Date Recorded Sex Assigned at Not on file Legal Sex Female 8:31 PM CDT Gender Identity Not on file Sexual Orientation Not on file documented as of this encounter Plan of Treatment Not on file documented as of this encounter Visit Diagnoses Not on filedocumented in this encounter Care Teams Edging Machine Setter Relationship Specialty Start Date End Date Octavio Valencia MD PCP - General 01/17/14 documented as of this encounter
--- OUTSIDE RECORDS SUMMARY | 2024-05-22 13:00 | XMS_ITS | Clinical Summary ---
Author Organization [facility] [id number] [address] Address [address] [place] [address] Care Team Providers Care Development Officer Name Role Phone Jerald Diaz Primary Care Provider [phone] Allergies Active Allergy Reactions Criticality Noted Date Comments Diazepam Other (See Comments) 05/22/2019 Starts to shake Neomycin Rash Low 05/22/2019 Medications diltiaZEM (TIAZAC) 240 mg Extended Release capsule Take 240 mg by mouth daily. Active levothyroxine sodium (SYNTHROID ORAL) Take by mouth. Active linaCLOtide (Linzess) 145 mcg capsule Take 145 mcg by mouth daily before breakfast. Active hydroCHLOROthiaz demarco 25 mg tablet Take 25 mg by mouth daily. Active busPIRone (BUSPAR) 5 mg tablet Take 5 mg by mouth 3 times daily. Active PARoxetine HCl (PAXIL) 20 mg tablet Take 20 mg by mouth daily. Active losartan (COZAAR) 100 mg tablet Take 100 mg by mouth daily. Active buPROPion HCL (WELLBUTRIN XL) 300 mg Extended Release 24 hour tablet Take 300 mg by mouth daily manager clinical applications. Active polyethylene glycol 3350 (MIRALAX ORAL) Take by mouth. Active folic acid/multivit-mi n/lutein (CENTRUM SILVER ORAL) Take by mouth. Active Calcium-Vitamin D3-Vitamin K 500-500-40 mg-unit-mcg Tablet, Chewable Take by mouth. Active cyanocobalamin (Vitamin B-12) 5,000 mcg Tablet, Sublingual Place under tongue. Active cholecalciferol, Vitamin D3, (Vitamin D3) 50 mcg (2,000 unit) Tablet Take by mouth. Active calcium phosphate trib/vit D3 (CITRACAL + D3, CALCIUM PHOS, ORAL) Take 1,200 mg by mouth. Active Active Problems Problem Noted Date Diagnosed Date Wedge compression fracture o f third lumbar vertebra with routine healing 05/22/2019 Wedge compression fracture o f T11 vertebra with routine healing 05/22/2019 Family History Medical History Relation Name Comments Other Brother Abdominal aorti c aneurysm Unknown Father Healthy Mother Relation Name Status Comments Brother Father Mother Social History Tobacco Use Types Packs/Day Years Used Date Smoking Tobacco: Never Smokeless Tobacco: Never Tobacco Cessation:Counseling Given: No Alcohol Use Standard Drinks/Week Comments Yes 0 (1 standard drink = 0.6 oz pur e alcohol) Comments Unknown Sex and Gender Information Value Date Recorded Sex Assigned at Not on file Legal Sex Female 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 AM NATIONAL EXPANSION RECRUITER Gender Identity Not on file Sexual Orientation Not on file Last Filed Vital Signs Vital Sign Reading Time Taken Comments Blood Pressure - - Pulse - - Temperature - - Respiratory Rate - - Oxygen Saturation - - Inhaled Oxygen Concentration - - Weight 72.6 kg (160 lb) 05/22/2019 9:25 AM CDT Height 149.9 cm (4' 11 ) 05/22/2019 9:25 AM CDT Body Mass Index 32.32 05/22/2019 9:25 AM CDT Plan of Treatment Health Maintenance Due Date Last Done Comments DTAP/TDAP/TD VACCINES (1 - Tdap) 05/07/1954 PNEUMOCOCCAL VACCINE 50+ YEARS (1 of 1 - PCV) 05/07/18 86 ZOSTER VACCINE (1 of 2) 05/07/1985 OSTEOPOROSIS SCREENING 05/07/2000 RSV VACCINE (60+ or ) (1 - 1-dose 75+ series) 05/07/2010 INFLUENZA VACCINE (#1) 2023 Insurance MEDICARE PART A AND B [employer] MEDICARE SUPPLEMENT Care Teams Development Officer Relationship Specialty Start Date End Date Jerald Diaz DO [address] [facility] [address] [facility] [address] [place] [address] PCP - General Internal Medicine 05/11/19
== END 2024-05-22 11:20 | disposition home or self-care (01) ==
PROVIDERS: PCP Nurse Practitioner; Visit Provider Nurse Practitioner
DX: E78.5 Hyperlipidemia, unspecified (principal); E03.9 Hypothyroidism, unspecified
CPT/HCPCS: 36415; 80053; 84443; 85027

== ENCOUNTER 2025-01-12 09:49 | Outpatient (CLI) | payer MEDICARE, OTHER, SELFPAY ==
[2025-01-12 10:33] LABS: Add Urine Microscopic? YES; Appearance Urine Cloudy (Clear); Glucose Urine UA Negative (Negative); Leukocyte Esterase Ur 3+ LEU/UL (Negative); Nitrate Urine Negative (Negative); Non Pathogenic Casts 0-2; Specific Grav Ur 1.011 (1.001-1.035)
== END 2025-01-12 09:50 | disposition home or self-care (01) ==
PROVIDERS: PCP Nurse Practitioner; Visit Provider Nurse Practitioner
DX: R39.9 Unspecified symptoms and signs involving the genitourinary system (principal)
CPT/HCPCS: 81001; 87077; 87086; 87186